=== PATIENT | female | born 1995 | race African-American/Black ===

== ENCOUNTER 2019-10-11 23:04 | Emergency (ER) | payer OTHER, BC, MEDICAID, SELFPAY ==
--- NOTE | ~2019-10-11 | XR_ITS ---
EXAMINATION: XR chest 2V DATE: 10/11/2019 23:52 INDICATION: Midline chest pain TECHNIQUE: PA and lateral views of the chest were obtained. COMPARISON: None FINDINGS: The lungs are clear with no focal airspace opacities, pulmonary edema, pleural effusion or pneumothor ax. The cardiomediastinal silhouette is normal. Mild thoracolumbar levoscoliosis. IMPRESSION: 1. No acute cardiopulmonary disease. Reviewed, dictated and finalized at location A. ERY CASHIER
[2019-10-11 23:08] VITALS: BP 140/71; PULSE 87; RESP 20; TEMP 37; O2SAT 100
--- NOTE | 2019-10-11 23:25 | ECG_ITS ---
Measurements Intervals [place] Rate: 73 P: 46 CA: 147 QRS: 22 QRSD: 80 T: 29 QT: 406 QTc: 448 Interpretive Statements SINUS RHYTHM BORDERLINE T WAVE ABNORMALITY- ANTERIOR LEADS BORDERLINE ECG Electronically Signed On 10-12-2019 7:04:59 UPHOLSTERY TECHNICIAN by Pee Boss D.O.
[2019-10-11 23:48] LABS: Basophils Percent Auto 0.3 % (0.2-1.2); Eosinophils Absolute Auto 0.2 K/mm3 (0-0.3); Eosinophils Percent Auto 1.3 % (0-4.4); Hematocrit 34.8 % (37.0-47.0); Hemoglobin 10.9 g/dL (12.0-15.0); Immature Granulocyte Absolute 0.04 K/mm3 (0.00-0.031); Immature Granulocyte Percent A 0.3 % (0-0.5); Lymphocytes Absolute Auto 4.47 K/mm3 (0.9-3.2); Lymphocytes Percent Auto 35.2 % (18.3-44.2); Mean Corpuscular HGB Conc 31.3 g/dl (32-36); Mean Corpuscular Hemoglobin 24.4 pg (26-34); Mean Platelet Volume 9.2 fl (7.4-10.4); Monocytes Absolute Auto 0.7 K/mm3 (0.1-0.6); Monocytes Percent Auto 5.8 % (2.6-8.5); Neutrophils Absolute Auto 7.2 K/mm3 (1.3-6.7); Neutrophils Percent Auto 57.1 % (45.5-73.1); Platelet Count Result 416 k/mm3 (150-375); Red Blood Count 4.46 M/mm3 (4.2-5.4); Red Cell Distribution Width 14.6 % (11.5-14.5); White Blood Count 12.7 K/mm3 (4.5-10.0)
[2019-10-11 23:54] LABS: Prothrombin Time 12.6 Seconds (11.1-14.7)
[2019-10-11 23:55] LABS: Partial Thromboplastin Time 29.7 SECONDS (22.3-36.8)
[2019-10-11 23:58] LABS: Blood Urea Nitrogen 9 mg/dL (7-17); Calcium 9.1 mg/dL (8.4-10.2); Carbon Dioxide 26 mmol/L (22-30); Chloride 100 mmol/L (98-107); Estimated CRCL calculation 88 ml/min; Estimated Glomerular Filt Rate > 60; Glucose 91 mg/dL (65-105); Potassium 3.8 mmol/L (3.4-5.0); Sodium 138 mmol/L (137-145)
[2019-10-12 00:09] LABS: Troponin I < 0.012 ng/mL (0.000-0.034)
--- NOTE | 2019-10-12 00:27 | ED.CHESTPAIN ---
HPI - Chest Pain General Chief Complaint: Chest Pain Stated Complaint: cough/cp Time Seen by Provider: 10/12/19 00:24 Source: patient and RN notes reviewed Mode of arrival: ambulatory Limitations: no limitations History of Present Illness HPI narrative: Pt is a 24 y/o female who presents to the ED with c/o midsternal chest pain starting around 19:00 yesterday. She notes that she has had a dry cough since yesterday. Pt states that she developed pain in her midsternal chest after eating wolof fries while at work at [employer] this evening. She notes that her pain radiates into her bilateral flank. Pt currently denies any SOB, LE edema, vomiting, diarrhea, ABD pain, or dysuria. She states that she is not currently on control. Pt notes that she has a FHx of DVT's. MD complaint: chest pain Onset (ago): hour(s) (5) Onset: after eating Pain location: other (midsternal) Pain radiation: back (bilateral flank) Associated symptoms: cough Treatment prior to arrival: none Related Data Allergies Allergy/AdvReac Type Severity Reaction Status Date / Time No Known Allergies Allergy Unverified 03/04/19 12:05 Review of Systems Review of Systems: Narrative: CONSTITUTIONAL: Denies fever, chills, or sweats. CARDIOVASCULAR: Denies palpitations or LE edema. Reports midsternal chest pain radiating into bilateral flank. RESPIRATORY: Denies dyspnea. Reports cough. GASTROINTESTINAL: Denies abdominal pain, nausea, vomiting, or diarrhea. GENITOURINARY: Denies dysuria or hematuria. All systems reviewed & are unremarkable except as noted in HPI and below PMFSH Past Medical History Medical History Arm fracture, left Colitis Herpes Miscarriage UTI (urinary tract infection) Surgical History Surgical History Hx of colonoscopy Hx of tonsillectomy Social History Social History Smoking status: Never smoker Exam Narrative: Exam Narrative: GENERAL: Well-appearing, well-nourished, and in no acute distress. HEAD: Normocephalic, atraumatic. EYES: PERRLA and EOMI. ENT: Nares clear, no rhinorrhea or epistaxis. Mucous membranes moist. NECK: Supple. CHEST: Clear to auscultation. No respiratory distress. No chest wall tenderness. HEART: Regular rate and rhythm. No murmur heard. Normal peripheral pulses. ABDOMEN: Soft, nontender, nondistended, normal active bowel sounds. EXTREMITIES: Normal range of motion. No edema. SKIN: Warm, dry, no rash. NEURO: No focal deficits. Alert and oriented. Course Vital Signs Vital signs: Vital Signs Temperature 37.0 C 10/11/19 23:08 Pulse Rate 87 10/11/19 23:08 Respiratory Rate 20 10/11/19 23:08 Blood Pressure 140/71 10/11/19 23:08 Pulse Oximetry 100 10/11/19 23:08 Temperature 37.0 C 10/11/19 23:08 Pulse Rate 75 10/12/19 02:15 Respiratory Rate 19 10/12/19 02:15 Blood Pressure 102/62 10/12/19 02:15 Pulse Oximetry 99 10/12/19 02:15 MDM - Chest Pain MDM Narrative Medical decision making narrative: Patient's EKG and labs are without significant high risk changes. Cardiac risk factors reviewed. Patient is felt low risk for ACS and reasonable for further risk stratification testing as an outpatient. Pain was not sudden or maximal or onset without tearing or ripping quality. No other signs or symptoms to suggest aortic dissection. A low risk well's criteria is noted, PE is felt to be unlikely. Furthermore, patient with negative d-dimer, making PE very unlikely. No pneumonia seen on evaluation today. Patient is felt to be a reasonable candidate for continued evaluation as an outpatient. Lab Data Result diagrams: 10/11/19 23:34 10/11/19 23:33 Labs: Lab Results 10/11/19 10/11/19 10/11/19 Range/Units 23:33 23:33 23:33 WBC (4.5-10.0) K/mm3 RBC (4.2-5.4) M/mm3 Hgb (12.0-15.0) g/dL Hct
[2019-10-12 00:44] VITALS: BP 113/70; PULSE 95; RESP 99; O2SAT 100
[2019-10-12] MEDS: ASPIRIN 81 MG CHEWABLE TABLET 324 MG PO (00:54)
[2019-10-12] MEDS: KETOROLAC (*BKC) 60 MG/2 ML VIAL 30 MG IM (00:55)
[2019-10-12 01:04] LABS: D Dimer 0.32 ug/mL (<0.48)
[2019-10-12 01:33] VITALS: BP 106/54; PULSE 69; RESP 16; O2SAT 100
[2019-10-12 02:15] VITALS: BP 102/62; PULSE 75; RESP 19; O2SAT 99
[2019-10-12 03:00] LABS: Troponin I < 0.012 ng/mL (0.000-0.034)
[2019-10-12 03:23] VITALS: BP 107/95; PULSE 77; RESP 19; O2SAT 100
== END 2019-10-12 03:26 | disposition home or self-care (01) ==
PROVIDERS: Emergency Provider Emergency Medicine; PCP Internal Medicine
DX: R07.89 Other chest pain (principal); D64.9 Anemia, unspecified
CPT/HCPCS: 36415; 71046; 80048; 84484; 85025; 85380; 85610; 85730; 93005; 96372; 99284; A9270; J1885

== ENCOUNTER 2020-02-25 11:51 | Outpatient (RCR) | payer OTHER, BC, MEDICAID, SELFPAY ==
[2020-02-23 15:13] LABS: Beta HCG Quantitative 310.14 mIU/ML
== END 2020-05-23 23:59 | disposition home or self-care (01) ==
LOC: ANHLAB 11:51
PROVIDERS: PCP Internal Medicine; Visit Provider Obstetrics & Gynecology
DX: Z36.89 Encounter for other specified antenatal screening (principal); Z29.13 Encounter for prophylactic Rho(D) immune globulin; O20.0 Threatened abortion; O36.0130 Maternal care for anti-D [Rh] antibodies, third trimester, not applicable or unspecified; Z3A.00 Weeks of gestation of pregnancy not specified
CPT/HCPCS: 36415; 84702; 85461

== ENCOUNTER 2020-03-09 20:21 | Emergency (ER) | payer OTHER, BC, MEDICAID, SELFPAY ==
--- NOTE | ~2020-03-09 | US_ITS ---
EXAMINATION: US OB <=14 wk fetus w TV EXAM DATE: 03/09/2020 INDICATION: , abdominal pain and syncope. 1st trimester. TECHNIQUE: Pelvic obstetrical transabdominal and transvaginal sonogram was performed by a techndamián landrum. There are multiple grayscale and Doppler images available for interpretation. There are no bhavesh ier studies of this gestation for comparison. FINDINGS: Uterus measures 6.5 x 5.3 x 7.0 cm. There is intrauterine gestation sac. pole with heart rate confirmed at 124 beats per minute. The 6 mm crown-rump length corresponds to estimated ge stational age by ultrasound of 6 weeks 3 days. Yolk sac is identified. There is small subchorionic hemorrhage, region measuring 13 x 8 x 3 mm. The ovaries are morphologically normal. Ovaries morphol ogically normal, color flow and Doppler flow confirmed bilaterally. IMPRESSION: Early live intrauterine gestation with small subchorionic hemorrhage. Reviewed, dictated and finalized at location A. IMPRESSION: Early live intrauterine gestation with small subchorionic hemorrhag e.
[2020-03-09 20:25] VITALS: BP 106/66; PULSE 102; RESP 20; TEMP 37.1; O2SAT 99
--- NOTE | 2020-03-09 20:30 | ED.SYNCOPE ---
HPI - Syncope General Chief Complaint: Urogenital-Female Stated Complaint: syncope Time Seen by Provider: 03/09/20 20:29 Source: patient Mode of arrival: ambulatory Limitations: no limitations History of Present Illness HPI narrative: Patient is a 24-year-old G3, P1 currently 8 weeks dated by last menstrual period following at [facility] who presents to the emergency department for evaluation of abdominal pain and cramping. Patient reports that she started to have some mild abdominal pain in the lower pelvis, cramping, spotting earlier today. No current spotting. No recent vaginal intercourse. Patient also reports syncopal event at work today. She is denying any back pain. No current shortness of breath. She has had significant nausea throughout this , states she has difficulty keeping any fluids down. She has not had an ultrasound at this point. She reports her blood type is O+. She reports any other vaginal discharge. No history of sexually transmitted infection. Pt recently diagnosed with a yeast infection at OBGYN office, completed 3 day course of Terazol 3 per patient. No vaginal irritation or itching per patient. Related Data Home Medications Medication Instructions Recorded Confirmed PNV cmb#95-ferrous fumarate-FA tablet PO 03/09/20 [] Allergies Allergy/AdvReac Type Severity Reaction Status Date / Time acetaminophen [From Percocet] Allergy Rash Verified 03/09/20 20:29 oxycodone [From Percocet] Allergy Rash Verified 03/09/20 20:29 Review of Systems Review of Systems: Narrative: CONSTITUTIONAL: Denies fever, chills, or sweats. EYES: Denies visual changes ENT: Denies rhinorrhea, congestion, sore throat, or otalgia. CARDIOVASCULAR: Denies chest pain, palpitations RESPIRATORY: Denies cough or dyspnea. GASTROINTESTINAL: Reports lower abdominal pain, nausea, vomiting : Reports vaginal bleeding, currently resolved GENITOURINARY: Denies dysuria or hematuria. SKIN: Denies rash or itching. MUSCULOSKELETAL: Denies back pain, joint pain, or myalgia. NEUROLOGIC: Denies current headache, numbness, or weakness. [facility] Past Medical History Medical History Arm fracture, left Colitis Herpes Miscarriage UTI (urinary tract infection) Surgical History Surgical History Hx of colonoscopy Hx of tonsillectomy Social History Social History Smoking status: Never smoker Exam Narrative: Exam Narrative: GENERAL: Awake, alert, conversant HEAD: Normocephalic, atraumatic. EYES: PERRLA and EOMI. ENT: Nares clear, no rhinorrhea or epistaxis. Mucous membranes moist. NECK: Supple. CHEST: No respiratory distress, breathing even and non labored HEART: Regular rate, sinus rhythm ABDOMEN:Non distended, mild tender in the pelvic area : Labia majora and minora normal without lesions. Vagina without blood. No cervical motion tenderness. No adnexal tenderness or fullness bilaterally. Mucoid discharge present. EXTREMITIES: Normal range of motion. No edema. SKIN: Warm, dry, no rash. NEURO:No focal deficits. Alert and oriented x3 Course Vital Signs Vital signs: Vital Signs Temperature 37.1 C 03/09/20 20:25 Pulse Rate 102 H 03/09/20 20:25 Respiratory Rate 20 03/09/20 20:25 Blood Pressure 106/66 03/09/20 20:25 Pulse Oximetry 99 03/09/20 20:25 Temperature 37.1 C 03/09/20 20:25 Pulse Rate 90 03/09/20 22:29 Respiratory Rate 19 03/09/20 22:29 Blood Pressure 113/88 03/09/20 22:29 Pulse Oximetry 99 03/09/20 22:29 MDM - Syncope MDM Narrative Medical decision making narrative: Patient presented for evaluation of vaginal bleeding, near syncope in the setting of a new , no ultrasound at this point. Patient's blood type is O+, verified in the computer. Pelvic exam shows no active b
--- NOTE | 2020-03-09 20:38 | ECG_ITS ---
Measurements Intervals [place] Rate: 79 P: 40 MO: 149 QRS: 16 QRSD: 86 T: 6 QT: 362 QTc: 417 Interpretive Statements SINUS RHYTHM BORDERLINE T WAVE ABNORMALITY- ANTEROLAT/INF LEADS BASELINE ARTIFACT- AVR, V1 BORDERLINE ECG Electronically Signed On 03-10-2020 7:30:04 CDT by Pee Boss D.O.
[2020-03-09] MEDS: SODIUM CHLORIDE 0.9% IV 1,000 ML 999 ML IV CONT (20:59)
[2020-03-09] MEDS: ONDANSETRON INJ 4 MG/2 ML VIAL IV PUSH (20:59)
--- NOTE | 2020-03-09 21:09 | PC.NURSE ---
pt unable to urinate at this time.
[2020-03-09 21:12] LABS: Basophils Percent Auto 0.2 % (0.2-1.2); Eosinophils Absolute Auto 0.2 K/mm3 (0-0.3); Eosinophils Percent Auto 1.5 % (0-4.4); Hemoglobin 10.7 g/dL (12.0-15.0); Immature Granulocyte Absolute 0.05 K/mm3 (0.00-0.031); Immature Granulocyte Percent A 0.4 % (0-0.5); Lymphocytes Absolute Auto 3.45 K/mm3 (0.9-3.2); Lymphocytes Percent Auto 27.6 % (18.3-44.2); Mean Corpuscular HGB Conc 32.4 g/dl (32-36); Mean Corpuscular Hemoglobin 24.9 pg (26-34); Mean Corpuscular Volume 76.7 fl (80-100); Mean Platelet Volume 9.3 fl (7.4-10.4); Monocytes Absolute Auto 0.7 K/mm3 (0.1-0.6); Monocytes Percent Auto 5.9 % (2.6-8.5); Neutrophils Absolute Auto 8.1 K/mm3 (1.3-6.7); Neutrophils Percent Auto 64.4 % (45.5-73.1); Platelet Count Result 392 k/mm3 (150-375); Red Cell Distribution Width 14.9 % (11.5-14.5); White Blood Count 12.5 K/mm3 (4.5-10.0)
[2020-03-09 21:25] LABS: Alanine Aminotransferase 12 U/L (4-35); Alkaline Phosphatase 58 U/L (38-126); Anion Gap 12.6 mmol/L (7-16); Aspartate Amino Transferase 23 U/L (14-36); Bilirubin,Total < 0.1 mg/dL (0.2-1.3); Blood Urea Nitrogen 8 mg/dL (7-17); Carbon Dioxide 22 mmol/L (22-30); Chloride 104 mmol/L (98-107); Estimated Glomerular Filt Rate > 60; Glucose 112 mg/dL (65-105); Potassium 3.6 mmol/L (3.4-5.0); Sodium 135 mmol/L (137-145)
[2020-03-09 21:27] LABS: Prothrombin Time 12.8 Seconds (11.1-14.7)
[2020-03-09 21:29] LABS: Partial Thromboplastin Time 30.7 SECONDS (22.3-36.8)
--- NOTE | 2020-03-09 21:30 | PC.NURSE ---
Pt to ultrasound
[2020-03-09 22:29] VITALS: BP 110/57; BP 110/75; BP 111/72; BP 113/88; PULSE 76; PULSE 80; PULSE 87; PULSE 90; RESP 19; O2SAT 99
[2020-03-09 22:45] LABS: Add Urine Microscopic? YES; Appearance Urine Clear (Clear); Bacteria Urine Trace /hpf; Bilirubin Urine Negative (Negative); Color Urine Yellow (Yellow); Glucose Urine UA Negative (Negative); Ketones Urine Negative (Negative); Leukocyte Esterase Ur Trace LEU/UL (Negative); Mucus Urine Rare /lpf; Nitrate Urine Positive (Negative); Protein Urine Negative (Negative); RBC Urine 0-2 /hpf (0-2); Specific Grav Ur 1.017 (1.001-1.035); Squamous Epithelial Cell Urine Occasional /hpf (Few); Urobilinogen Urine Negative mg/dL (<2.0); WBC Urine 16-20 /hpf
[2020-03-09 22:48] LABS: Blood Urine Negative (Negative)
[2020-03-10 00:08] VITALS: BP 100/57; PULSE 80; RESP 17; O2SAT 99
== END 2020-03-10 00:08 | disposition home or self-care (01) ==
PROVIDERS: Emergency Provider Emergency Medicine; PCP Internal Medicine
DX: O23.11 Infections of bladder in pregnancy, first trimester (principal); O46.8X1 Other antepartum hemorrhage, first trimester; Z3A.01 Less than 8 weeks gestation of pregnancy
CPT/HCPCS: 36415; 76801; 76817; 80053; 81001; 81025; 84702; 85025; 85461; 85610; 85730; 87070; 87077; 87086; 87088; 87186; 87491; 87591; 87808; 93005; 96361; 96374; 99284; J2405; J7030

== ENCOUNTER 2020-03-13 17:02 | Emergency (ER) | payer OTHER, BC, MEDICAID, SELFPAY ==
[2020-03-13 17:03] VITALS: BP 114/68; PULSE 84; RESP 20; TEMP 37.4; O2SAT 100
--- NOTE | 2020-03-13 17:34 | ED.GENADULT ---
HPI - General Adult General Chief complaint: Unspecified Stated complaint: N/V Time Seen by Provider: 03/13/20 17:18 Source: patient Mode of arrival: ambulatory Limitations: no limitations History of Present Illness HPI narrative: This is a 24 year old G3, P1, about 7 weeks that presents to the ER for nausea and vomiting since yesterday. Reports she has not been able to keep anything down. Was seen by her OB and sent here for hydration. Denies fever, abdominal pain, pelvic cramping, or vaginal bleeding. Related Data Home Medications Medication Instructions Recorded Confirmed PNV cmb#95-ferrous fumarate-FA tablet PO 03/09/20 [] Allergies Allergy/AdvReac Type Severity Reaction Status Date / Time acetaminophen [From Percocet] Allergy Rash Verified 03/13/20 17:05 oxycodone [From Percocet] Allergy Rash Verified 03/13/20 17:05 Review of Systems Review of Systems: Narrative: CONSTITUTIONAL: Denies fever GASTROINTESTINAL: Reports nausea and vomiting. Denies abdominal pain GENITOURINARY: Denies dysuria All systems reviewed & are unremarkable except as noted in HPI and below PMFSH Social History Social History Smoking status: Never smoker Exam Narrative: Exam Narrative: GENERAL: Well-appearing, well-nourished, and in no acute distress. HEAD: Normocephalic, atraumatic. EYES: EOMI. CHEST: Clear to auscultation. No respiratory distress. No wheezes rales or rhonchi HEART: Regular rate and rhythm. No murmur heard. Normal peripheral pulses. ABDOMEN: Soft, nontender, nondistended, normal active bowel sounds. EXTREMITIES: Normal range of motion. No edema. SKIN: Warm, dry, no rash. NEURO: No focal deficits. Alert and oriented x3. PSYCH: Normal mood and affect Course Consultations Consultation #1: Spoke with on-call, Dr. Barth about patient and workup. She is to follow-up in clinic. Date: 03/13/20 Time: 20:30 Vital Signs Vital signs: Vital Signs Temperature 99.3 F 03/13/20 17:03 Pulse Rate 84 03/13/20 17:03 Respiratory Rate 20 03/13/20 17:03 Blood Pressure 114/68 03/13/20 17:03 Pulse Oximetry 100 07/28/20 17:03 Temperature 99.3 F 03/13/20 17:03 Pulse Rate 84 03/13/20 17:03 Respiratory Rate 03/13/20 17:03 Blood Pressure 114/68 03/13/20 17:03 Pulse Oximetry 100 03/13/20 17:03 Medical Decision Making MDM Narrative Medical decision making narrative: Patient presents the emergency department for nausea and vomiting x1 day. Patient 7 weeks . Provider is Rosamaria at [facility]. Patient had an ultrasound here 4 days ago which showed a live intrauterine gestation with a small subchorionic hemorrhage. Patient has no other complaints today. Denies any pelvic cramping or vaginal bleeding. No abdominal pain. Patient's vitals are normal. CBC with mild leukocytosis to 12.1. Also with mild microcytic anemia with hemoglobin of 11.3. Metabolic panel and lipase without acute findings. UA with 16-20 white blood cells and 3+ bacteria, also with many squamous epithelial cells. Patient will be placed on Macrobid for bacteriuria in . Patient hydrated and given Reglan in the ED with relief. Was able to tolerate p.o. challenge. Spoke with on-call, Dr. Barth about patient. She is to follow-up in clinic. Patient is stable and felt appropriate for further outpatient evaluation. She was given warnings to return to the ER Vital Signs Vital Signs: Vital Signs Temperature 99.3 F 03/13/20 17:03 Pulse Rate 84 03/13/20 17:03 Respiratory Rate 03/13/20 17:03 Blood Pressure 114/68 03/13/20 17:03 Pulse Oximetry 100 03/13/20 17:03 Temperature 99.3 F 03/13/20 17:03 Pulse Rate 84 03/13/20 17:03 Respiratory Rate 03/13/20 17:03 Blood Pressure 114/68 03/13/20 17:03 Pulse Oximetry 100 03/13/20 17:03 Lab Data Lab results reviewed: Yes I reviewed the patient'
[2020-03-13 17:41] LABS: Basophils Percent Auto 0.2 % (0.2-1.2); Eosinophils Absolute Auto 0.1 K/mm3 (0-0.3); Eosinophils Percent Auto 1.1 % (0-4.4); Hematocrit 35.6 % (37.0-47.0); Hemoglobin 11.3 g/dL (12.0-15.0); Immature Granulocyte Absolute 0.07 K/mm3 (0.00-0.031); Immature Granulocyte Percent A 0.6 % (0-0.5); Lymphocytes Absolute Auto 2.43 K/mm3 (0.9-3.2); Mean Corpuscular HGB Conc 31.7 g/dl (32-36); Mean Corpuscular Hemoglobin 24.2 pg (26-34); Mean Corpuscular Volume 76.2 fl (80-100); Monocytes Absolute Auto 0.9 K/mm3 (0.1-0.6); Monocytes Percent Auto 7.3 % (2.6-8.5); Neutrophils Absolute Auto 8.6 K/mm3 (1.3-6.7); Neutrophils Percent Auto 70.8 % (45.5-73.1); Platelet Count Result 429 k/mm3 (150-375); Red Blood Count 4.67 M/mm3 (4.2-5.4); Red Cell Distribution Width 14.9 % (11.5-14.5); White Blood Count 12.1 K/mm3 (4.5-10.0)
[2020-03-13] MEDS: diphenhydrAMINE HCl INJ 50 MG/ML VIAL 25 MG IV PUSH (17:49)
[2020-03-13] MEDS: METOCLOPRAMIDE HCL INJ 10 MG/2 ML VIAL IV PUSH (17:49)
[2020-03-13] MEDS: SODIUM CHLORIDE 0.9% IV 1,000 ML 999 ML IV CONT (17:49)
[2020-03-13 17:54] LABS: Alanine Aminotransferase 13 U/L (4-35); Albumin Level 4.4 g/dL (3.5-5.1); Alkaline Phosphatase 56 U/L (38-126); Anion Gap 13.7 mmol/L (7-16); Aspartate Amino Transferase 29 U/L (14-36); Bilirubin,Total 0.2 mg/dL (0.2-1.3); Blood Urea Nitrogen 7 mg/dL (7-17); Calcium 9.2 mg/dL (8.4-10.2); Carbon Dioxide 23 mmol/L (22-30); Chloride 102 mmol/L (98-107); Estimated CRCL calculation 110 ml/min; Estimated Glomerular Filt Rate > 60; Glucose 95 mg/dL (65-105); Lipase 71 U/L (23-300); Potassium 3.7 mmol/L (3.4-5.0); Sodium 135 mmol/L (137-145)
[2020-03-13 19:31] LABS: Add Urine Microscopic? YES; Appearance Urine Cloudy (Clear); Bacteria Urine 3+ /hpf; Bilirubin Urine Negative (Negative); Color Urine Yellow (Yellow); Glucose Urine UA Negative (Negative); Ketones Urine Trace mg/dL (Negative); Leukocyte Esterase Ur 2+ LEU/UL (Negative); Mucus Urine Moderate /lpf; Nitrate Urine Negative (Negative); Protein Urine 1+ mg/dL (Negative); Renal Epithelial Cells Urine Rare /hpf (None Seen); Specific Grav Ur 1.024 (1.001-1.035); Squamous Epithelial Cell Urine Many /hpf (Few); Urobilinogen Urine Negative mg/dL (<2.0); WBC Urine 16-20 /hpf
[2020-03-13 19:36] LABS: Blood Urine Negative (Negative)
[2020-03-13 20:41] VITALS: BP 132/70; PULSE 80; RESP 20; O2SAT 99
== END 2020-03-13 20:43 | disposition home or self-care (01) ==
PROVIDERS: Emergency Provider Emergency Medicine; PCP Internal Medicine
DX: O21.9 Vomiting of pregnancy, unspecified (principal); O26.891 Other specified pregnancy related conditions, first trimester; R82.71 Bacteriuria; Z3A.01 Less than 8 weeks gestation of pregnancy
CPT/HCPCS: 36415; 80053; 81001; 83690; 85025; 87077; 87086; 87088; 87186; 96361; 96374; 96375; 99284; J1200; J2765; J7030

== ENCOUNTER 2020-03-28 17:24 | Observation (INO) | payer OTHER, BC, MEDICAID, SELFPAY ==
[2020-03-28 17:45] VITALS: BMI 29.3
[2020-03-28] MEDS: DEXTROSE 5%/LACTATED RINGERS 1,000 ML 999 ML IV CONT (17:53)
--- NOTE | 2020-03-28 17:55 | OBADM ---
This patient, Vicki Villafuerte, admitted to the OB room OB Post 116 for observation. Patient/family oriented to hospital policies and general routines including ID bracelet, bed and alarms, visiting hours, pain management, procedures, bathroom and other care routines, personal items, smoking policy, room service/diet, and visiting hours. Patient/Family are encouraged to report perceived risks to care and to ask questions if they do not understand what they are told or what they should do.
[2020-03-28 18:00] VITALS: BP 110/64; PULSE 89
[2020-03-28 18:05] LABS: Add Urine Microscopic? YES; Appearance Urine Cloudy (Clear); Bacteria Urine 3+ /hpf; Bilirubin Urine Negative (Negative); Blood Urine 1+ (Negative); Color Urine Yellow (Yellow); Glucose Urine UA Negative (Negative); Ketones Urine 2+ mg/dL (Negative); Leukocyte Esterase Ur 3+ LEU/UL (NEGATIVE); Mucus Urine Heavy /lpf; Nitrate Urine Positive (Negative); Protein Urine 2+ mg/dL (Negative); RBC Urine 21-50 /hpf (0-2); Squamous Epithelial Cell Urine Few /hpf (Few); Urobilinogen Urine Negative mg/dL (<2.0); WBC Urine >75 /hpf (0-3)
[2020-03-28] MEDS: PROCHLORPERAZINE EDISYLATE 10 MG/2 ML VIAL IV PUSH (18:11)
--- NOTE | 2020-03-28 18:57 | PC.NURSE ---
Patient reports feeling better after medication and fluid bolus. Patient denies nausea at present time. Patient given ice chips, water and crackers to attempt PO.
--- NOTE | 2020-03-28 19:37 | PC.NURSE ---
Updated Dr. Barth of patient UA results, Urine will be sent to culture. Patient currently resting comfortably without complaint of nausea. Patient states she is feeling better and is attempting crackers, ice and water PO.
--- NOTE | 2020-03-28 20:26 | PC.NURSE ---
Updated Dr. Barth. Patient tolerating PO water and crackers without complaint. Patient able to sleep comfortably. Discharge orders given.
[2020-03-28] MEDS: LIDOCAINE HCL 1% LOCAL INJ 10 ML VIAL 2.1 ML XX (20:54)
[2020-03-28] MEDS: cefTRIAXone 1 GM VIAL IM (20:54)
--- NOTE | 2020-03-28 21:05 | PC.NURSE ---
Discharge orders reviewed with patient. Patient educated on new medications and instructed to picker tender helper medications at her preferred pharmacy. Patient states understanding. Patient left ambulating at 2105.
--- NOTE | 2020-04-15 20:56 | P.PNOB_ITS ---
OB - Triage/Final Diagnosis Evaluation Laboratory results: Laboratory Tests 03/28/20 17:50 Urine Color Yellow Urine Appearance Cloudy H Urine pH 6.0 Ur Specific [place] 1.030 Urine Protein 2+ H Urine Glucose (UA) Negative Urine Ketones 2+ H Ur Blood (Man) 1+ H Urine Nitrate Positive Urine Bilirubin Negative Urine Urobilinogen Negative Ur Leukocyte Esterase 3+ H Urine RBC 21-50 H Urine WBC >75 H Ur Squamous Epith Cells Few Urine Bacteria 3+ H Urine Mucus Heavy H Final Diagnosis (1) Nausea and vomiting: Code(s): R11.2 - Nausea with vomiting, unspecified Status: Acute
== END 2020-03-28 21:05 | disposition home or self-care (01) ==
PROVIDERS: Admitting Provider Obstetrics & Gynecology; PCP Internal Medicine; Visit Provider Obstetrics & Gynecology
DX: O21.0 Mild hyperemesis gravidarum (principal); Z3A.09 9 weeks gestation of pregnancy
CPT/HCPCS: 81001; 87077; 87086; 87088; 87186; 96361; 96372; 96374; G0378; G0379; J0696; J0780; J7121

== ENCOUNTER 2020-04-06 18:18 | Observation (INO) | payer OTHER, BC, MEDICAID, SELFPAY ==
[2020-04-06 19:15] LABS: Basophils Percent Auto 0.1 % (0.2-1.2); Eosinophils Absolute Auto 0.1 K/mm3 (0-0.3); Eosinophils Percent Auto 1.1 % (0-4.4); Hematocrit 33.7 % (37.0-47.0); Immature Granulocyte Absolute 0.02 K/mm3 (0.00-0.031); Immature Granulocyte Percent A 0.2 % (0-0.5); Lymphocytes Absolute Auto 1.99 K/mm3 (0.9-3.2); Lymphocytes Percent Auto 22.6 % (18.3-44.2); Mean Corpuscular HGB Conc 32.6 g/dl (32-36); Mean Corpuscular Hemoglobin 24.8 pg (26-34); Mean Corpuscular Volume 76.1 fl (80-100); Mean Platelet Volume 9.2 fl (7.4-10.4); Monocytes Absolute Auto 0.8 K/mm3 (0.1-0.6); Neutrophils Absolute Auto 5.9 K/mm3 (1.3-6.7); Platelet Count Result 345 k/mm3 (150-375); Red Blood Count 4.43 M/mm3 (4.2-5.4); Red Cell Distribution Width 14.2 % (11.5-14.5); White Blood Count 8.8 K/mm3 (4.5-10.0)
[2020-04-06 19:27] LABS: Alanine Aminotransferase 56 U/L (4-35); Albumin Level 4.3 g/dL (3.5-5.1); Alkaline Phosphatase 56 U/L (38-126); Anion Gap 11 mmol/L (8-16); Aspartate Amino Transferase 32 U/L (14-36); Bilirubin,Total < 0.1 mg/dL (0.2-1.3); Blood Urea Nitrogen 6 mg/dL (7-17); Carbon Dioxide 25 mmol/L (22-30); Chloride 100 mmol/L (98-107); Estimated Glomerular Filt Rate > 60; Glucose 82 mg/dL (65-105); Potassium 3.5 mmol/L (3.4-5.0); Sodium 136 mmol/L (137-145)
[2020-04-06] MEDS: ONDANSETRON INJ 4 MG/2 ML VIAL IV PUSH (19:36)
[2020-04-06] MEDS: DEXTROSE 5%/LACTATED RINGERS 1,000 ML 125 ML IV CONT (19:36)
[2020-04-06] MEDS: FAMOTIDINE 20 MG/2 ML VIAL IV PUSH (19:36)
--- NOTE | 2020-04-06 20:01 | PHAR ---
WILL STOP LR WILL RUNNING CEFTRIAXONE. WILL GIVE SALINE BOLUS.
[2020-04-06] MEDS: SODIUM CHLORIDE 0.9% IV 500 ML IV CONT (21:59)
[2020-04-07] VITALS (8 sets, daily range): BP systolic 86–107; BP diastolic 48–60; PULSE 76–97; TEMP 36.6–37.2
[2020-04-07] MEDS: PROMETHAZINE HCL 25 MG/ML AMPUL 12.5 MG IV PUSH ×2 (00:10→12:47)
[2020-04-07] MEDS: DEXTROSE 5%/LACTATED RINGERS 1,000 ML 125 ML IV CONT ×3 (00:32→15:16)
[2020-04-07 00:52] LABS: Add Urine Microscopic? YES; Appearance Urine Cloudy (Clear); Bacteria Urine 2+ /hpf; Bilirubin Urine Negative (Negative); Blood Urine Negative (Negative); Color Urine Yellow (Yellow); Glucose Urine UA 2+ mg/dL (Negative); Ketones Urine 1+ mg/dL (Negative); Leukocyte Esterase Ur 2+ LEU/UL (Negative); Mucus Urine Heavy /lpf; Nitrate Urine Negative (Negative); Protein Urine 1+ mg/dL (Negative); Specific Grav Ur 1.025 (1.001-1.035); Squamous Epithelial Cell Urine Many /hpf (Few); Urobilinogen Urine Negative mg/dL (<2.0); WBC Urine 16-20 /hpf
[2020-04-07] MEDS: ONDANSETRON INJ 4 MG/2 ML VIAL IV PUSH (11:56)
[2020-04-07] MEDS: FAMOTIDINE 20 MG/2 ML VIAL IV PUSH (11:56)
[2020-04-07] MEDS: DOCUSATE SODIUM 100 MG CAPSULE PO (15:36)
--- NOTE | 2020-04-07 22:00 | PC.NURSE ---
Pt decided to stay the night, IV saline locked, medication for nausea offered, pt declined. Pt wants to stay over night to make sure she is able to tolerate food before going home.
[2020-04-07] MEDS: NITROFURANTOIN MONOHYD MACROCR 100 MG CAP PO (22:07)
--- NOTE | 2020-04-07 22:40 | PC.NURSE ---
Pt ate a turkey sandwich, declined nausea medication.
--- NOTE | 2020-04-08 01:40 | PC.NURSE ---
Pt called RN stating she was trying to have a bowel movement. Previously discussed pt would be constipated due to not being able to eat or drink anything for awhile and the medications given can cause constipation. Discussed options of digital removal of stool, enema, or other medications. Pt does not want an enema or digital removal. Will call for orders.
[2020-04-08] MEDS: MAGNESIUM HYDROXIDE SUSP 30 ML UDC PO (02:00)
[2020-04-08 09:42] VITALS: BP 106/60; PULSE 86; TEMP 37.1
--- NOTE | 2020-04-08 12:01 | PM.IMHP ---
H&P: HPI History of Present Illness Date/Time: 04/08/20 12:01 Chief complaint: Hyperemesis Narrative: Vicki Villafuerte is a 24 year old female 2 para 1001 at 11 weeks gestation who presented with intractable nausea and vomiting. She has been suffering with hyperemesis gravidarum for several weeks. She denies any cramping or bleeding. She denies any fever chills. She denies any chest pain or shortness of breath. Review of Systems Constitutional: Constitutional: Reports no additional constitutional complaints, Denies fatigue, Denies headache(s), Denies lethargy and Denies weakness Eyes: Eyes: Reports no additional eye complaints, Denies blurry vision and Denies photophobia ENT: Reports as per HPI, Denies headache(s) and Denies neck pain Cardiovascular: Cardiovascular: Denies chest pain, Denies diaphoresis, Denies leg edema, Denies palpitations and Denies dyspnea Respiratory: Respiratory: Denies hemoptysis, Denies dyspnea and Denies wheezing Gastrointestinal: Gastrointestinal: Denies abdominal pain, Denies melena, Denies bloating, Denies hematochezia, Denies nausea and Denies vomiting Genitourinary: Genitourinary: Reports no additional female genitourinary complaints Musculoskeletal: Musculoskeletal: Denies joint swelling, Denies neck pain, Denies numbness and Denies stiffness Neurologic: Denies Abnormal speech present, Denies confusion, Denies headache(s), Denies numbness and Denies weakness Psychiatric: Psychiatric: Denies anxiety, Denies confusion, Denies depression, Denies homicidal ideation and Denies suicidal ideation Endocrine: Endocrine: Denies fatigue and Denies palpitations Allergic/Immunologic: Allergic/Immunologic: Denies wheezing PMFSH Social History Social History Smoking status: Never smoker Meds Home Medications and Allergies Home Medications Medication Instructions Recorded Confirmed Type PNV cmb#95-ferrous fumarate-FA 1 tablet PO DAILY 03/09/20 03/28/20 History [] nitrofurantoin monohyd/m-cryst 100 mg PO Q12H 7 Days #14 cap 03/28/20 Rx [Macrobid] prochlorperazine maleate 10 mg PO Q6H PRN #30 tablet 03/28/20 Rx [Compazine] Allergies Allergy/AdvReac Type Severity Reaction Status Date / Time acetaminophen [From Percocet] Allergy Rash Verified 03/13/20 17:05 oxycodone [From Percocet] Allergy Rash Verified 03/13/20 17:05 Vital Signs Vital Signs - 24 hr 04/07/20 13:19 04/07/20 16:49 04/07/20 16:50 Temperature 97.9 F 98.9 F Pulse Rate 76 97 Blood Pressure 97/57 L 107/52 L 04/07/20 22:00 04/07/20 22:08 04/08/20 09:42 Temperature 98 F 98.8 F Pulse Rate 81 86 Blood Pressure 93/55 L 106/60 Exam Const: General: healthy appearing, comfortable and no acute distress; No confusion Orientation/consciousness: No confusion Eyes: Direct Ophthalmoscopy: No photophobia Resp: Auscultation: clear to auscultation bilaterally, no rales, no rhonchi and no wheezes Cardio: Rate: regular rate Heart sounds: no click, no murmurs and no rubs GI: Inspection: non-distended GI Palp: No abdominal tenderness Auscultation: normal bowel sounds Neuro: General: No confusion Speech: No Abnormal speech present Extrem: General: normal to inspection, no pedal edema and no calf tenderness Assessment and Plan Assessment and plan (1) Hyperemesis: Code(s): R11.10 - Vomiting, unspecified Status: Acute Assessment and Plan: patient is a 24 year old multi hip 11 weeks gestation with hyperemesis. She has been supported with IV fluids and antiemetics. Labs are normal and she is being treated for UTI. We will discharge her if she is able to tolerate lunch today. She has improved significantly on her. Observation.
[2020-04-08] MEDS: NITROFURANTOIN MONOHYD MACROCR 100 MG CAP PO (12:44)
== END 2020-04-08 13:36 | disposition home or self-care (01) ==
PROVIDERS: Advanced Practice Midwife; Admitting Provider Obstetrics & Gynecology; PCP Internal Medicine; Visit Provider Obstetrics & Gynecology
DX: O21.0 Mild hyperemesis gravidarum (principal); O23.41 Unspecified infection of urinary tract in pregnancy, first trimester; Z3A.11 11 weeks gestation of pregnancy
CPT/HCPCS: 36415; 80053; 81001; 85025; 87086; 96361; 96365; 96374; 96375; 96376; A9270; G0378; G0379; J0696; J2405; J2550; J7040; J7121

== ENCOUNTER 2020-04-30 18:06 | Inpatient (IN) | payer BC, MEDICAID, SELFPAY ==
--- NOTE | ~2020-04-30 | US_ITS ---
US right upper quadrant INDICATION: Elevated lipase PROCEDURE: Realtime right upper abdominal ultrasound. COMPARISON: No prior studies for comparison. FINDINGS: The pancreas is normal without focal mass or pancreatic ductal dilation. Liver echotexture is normal without focal mass or intrahepatic biliary dilatation. There is normal directional flow i n the portal vein. Gallbladder contains sludge. No definite stones, gallbladder wall thickening or pericholecystic fluid . Common bile duct measures 4 mm. Positive sonographic Lopez's sign. IMPRESSION: 1: Sludge filled gallbladder with positive sonographic Lopez's sign. Consider acalculous cholecystit is in the appropriate clinical setting. Reviewed, dictated and finalized at location B. IMPRESSION: 1: Sludge filled gallbladder with positive sonographic Lopez's sign. Consider acalculous cholecystitis in the appropriate clinical setting.
--- NOTE | ~2020-04-30 | US_ITS ---
EXAMINATION: US OB >= 14 weeks Fetus EXAM DATE: 05/02/2020 13:31 INDICATION: Nausea vomiting. Check viability. 2nd trimester. TECHNIQUE: Pelvic obstetrical transabdominal sonogram was performed by a technologist. There are mu ltiple grayscale and Doppler images available for interpretation. Comparison is made to prior examina tion from 03/09/2020. FINDINGS: There is a single fetus identified in breech presentation with a heart rate of 159 beats pe r minute. The placenta is located in the posterior position. There is no sonographic evidence of ret roplacental hemorrhage identified. BIOMETRIC DATA: Biparietal diameter (BPD): 2.6cm ----------------> 14 weeks 3 days. Head circumference (HC): 9.8 cm ----------------> 14 weeks 4 days. Abdominal circumference (AC): 8.2 cm ----------> 14 weeks 4 days. Femur length (FL): 1.5 cm --------------------------> 14 weeks 2 days. These measurements are concordant. HC/AC ratio is 1.19 (The 5th -- 95th percentile range is 1.08-1.37. Estimated weight is 98 g +/- 15 g. This is the 55 percentile when the currently reported clini [place] gestation age 14 weeks 1 day, clinical estimated date of delivery (MALVIN-OPE) 10/30/2020 is used. Fe pablito estimated gestational age based on measurements from this exam is 14 weeks 3 days, with an estima jose manuel date of delivery (MALVIN-AUA) 10/28/2020. IMPRESSION: 1. Single fetus in breech presentation with heart rate 159 beats per minute. 2. Estimated weight of 98 grams, 55th percentile using the currently reported clinical gestati on age of 14 weeks 1 day, MALVIN(OPE) 10/30/2020. Reviewed, dictated and finalized at location A. IMPRESSION: 1. Single fetus in breech presentation with heart rate 159 beats per minute. 2. Estimated weight of 98 grams, 55th percentile using the currently rep orted clinical gestation age of 14 weeks 1 day, MALVIN(OPE) 10/30/2020.
[2020-04-30 16:08] VITALS: BP 136/75; PULSE 124; RESP 20; TEMP 36.6; O2SAT 100
[2020-04-30 16:26] LABS: Basophils Percent Auto 0.3 % (0.2-1.2); Eosinophils Absolute Auto 0.1 K/mm3 (0-0.3); Eosinophils Percent Auto 1.2 % (0-4.4); Hematocrit 36.5 % (37.0-47.0); Hemoglobin 12.2 g/dL (12.0-15.0); Immature Granulocyte Absolute 0.03 K/mm3 (0.00-0.031); Immature Granulocyte Percent A 0.3 % (0-0.5); Lymphocytes Absolute Auto 1.81 K/mm3 (0.9-3.2); Lymphocytes Percent Auto 20.5 % (18.3-44.2); Mean Corpuscular HGB Conc 33.4 g/dl (32-36); Mean Corpuscular Hemoglobin 24.8 pg (26-34); Mean Corpuscular Volume 74.3 fl (80-100); Mean Platelet Volume 9.7 fl (7.4-10.4); Monocytes Absolute Auto 0.9 K/mm3 (0.1-0.6); Monocytes Percent Auto 9.7 % (2.6-8.5); Platelet Count Result 404 k/mm3 (150-375); Red Blood Count 4.91 M/mm3 (4.2-5.4); Red Cell Distribution Width 13.7 % (11.5-14.5); White Blood Count 8.9 K/mm3 (4.5-10.0)
[2020-04-30 16:50] LABS: Alanine Aminotransferase 178 U/L (4-35); Albumin Level 4.7 g/dL (3.5-5.1); Alkaline Phosphatase 90 U/L (38-126); Anion Gap 13 mmol/L (8-16); Aspartate Amino Transferase 104 U/L (14-36); Bilirubin,Total 0.8 mg/dL (0.2-1.3); Blood Urea Nitrogen 5 mg/dL (7-17); Calcium 9.5 mg/dL (8.4-10.2); Carbon Dioxide 21 mmol/L (22-30); Chloride 97 mmol/L (98-107); Estimated CRCL calculation 118 ml/min; Estimated Glomerular Filt Rate > 60; Glucose 100 mg/dL (65-105); Lipase 736 U/L (23-300); Sodium 131 mmol/L (137-145)
[2020-04-30 20:12] LABS: Add Urine Microscopic? YES; Appearance Urine Cloudy (Clear); Bacteria Urine 1+ /hpf; Bilirubin Urine 1+ (Negative); Blood Urine 2+ (Negative); Color Urine Amber (Yellow); Glucose Urine UA 1+ mg/dL (Negative); Ketones Urine 2+ mg/dL (Negative); Leukocyte Esterase Ur 1+ LEU/UL (NEGATIVE); Mucus Urine Heavy /lpf; Nitrate Urine Negative (Negative); Protein Urine 2+ mg/dL (Negative); Squamous Epithelial Cell Urine Many /hpf (Few); WBC Urine 16-20 /hpf (0-3)
[2020-04-30 20:14] LABS: Specific Grav Ur 1.032 (1.001-1.035)
[2020-04-30] MEDS: PROMETHAZINE HCL 25 MG/ML AMPUL 12.5 MG IV PUSH (20:23)
[2020-04-30] MEDS: SODIUM CHLORIDE 0.9% IV 50 ML 200 ML (20:23)
[2020-04-30] MEDS: KCL 40 MEQ/D5/0.9% SOD CHL 1,000 ML 150 ML IV CONT (20:39)
--- NOTE | 2020-04-30 20:52 | OBADM ---
This patient, Vicki Villafuerte, admitted to the OB room OB Post 113 for observation. Patient/family oriented to hospital policies and general routines including ID bracelet, bed and alarms, visiting hours, pain management, procedures, bathroom and other care routines, personal items, smoking policy, room service/diet, and visiting hours. Patient/Family are encouraged to report perceived risks to care and to ask questions if they do not understand what they are told or what they should do.
[2020-04-30 20:54] VITALS: BMI 25.0
--- NOTE | 2020-04-30 21:00 | PC.NURSE ---
1830Pt states she has been vomiting for past 7 days and has been here for same with this . Unable to keep down antibiotic prescribed for UTI. States she has not had BM since 04/08
--- NOTE | 2020-04-30 21:01 | PC.NURSE ---
1950 Unable to obtain IV attempt x2. extrusion supervisor called and will come to start.
[2020-04-30 23:46] VITALS: BP 86/56; PULSE 95; TEMP 36.8
--- NOTE | 2020-04-30 23:57 | PC.NURSE ---
2200 Pt has been sleeping quietly. Left undisturbed. No vomiting since arrival.
[2020-05-01] VITALS (8 sets, daily range): BP systolic 88–111; BP diastolic 56–70; PULSE 83–99; TEMP 36.6–37.3
--- NOTE | 2020-05-01 00:32 | PC.NURSE ---
pt resting and plan of care discussed.pt denies any needs at this time. pt instructed to alert nurse of any changes or if pt starts to feel more nauseous or starts vomiting
[2020-05-01] MEDS: KCL 40 MEQ/D5/0.9% SOD CHL 1,000 ML 150 ML IV CONT ×4 (03:06→23:18)
[2020-05-01] MEDS: PROMETHAZINE HCL 25 MG SUPP.RECT RECTAL (03:10)
--- NOTE | 2020-05-01 03:15 | PC.NURSE ---
0300 Pt has been sleeping. Pt states nausea improved after Phenergan. Nausea is returning now. IV infusing without difficulty.
[2020-05-01 04:45] LABS: Alanine Aminotransferase 139 U/L (4-35); Albumin Level 3.8 g/dL (3.5-5.1); Alkaline Phosphatase 69 U/L (38-126); Anion Gap 10 mmol/L (8-16); Aspartate Amino Transferase 82 U/L (14-36); Bilirubin,Total 0.6 mg/dL (0.2-1.3); Blood Urea Nitrogen 3 mg/dL (7-17); Calcium 8.7 mg/dL (8.4-10.2); Carbon Dioxide 24 mmol/L (22-30); Chloride 102 mmol/L (98-107); Estimated CRCL calculation 118 ml/min; Estimated Glomerular Filt Rate > 60; Glucose 129 mg/dL (65-105); Lipase 700 U/L (23-300); Potassium 3.1 mmol/L (3.4-5.0); Sodium 136 mmol/L (137-145); Uric Acid 5.3 mg/dL (2.5-7.5)
--- NOTE | 2020-05-01 05:00 | PC.NURSE ---
0500 UPdate of labs to Dr. Barth per phone.
--- NOTE | 2020-05-01 07:00 | PC.NURSE ---
Patient resting soundly.
--- NOTE | 2020-05-01 10:05 | PC.NURSE ---
Dr Barth notified of cont nausea and patient wishing to try something else. Orders received.
[2020-05-01] MEDS: PROCHLORPERAZINE EDISYLATE 10 MG/2 ML VIAL IV PUSH (11:00)
[2020-05-01 14:01] LABS: Hematocrit 30.3 % (37.0-47.0); Hemoglobin 9.8 g/dL (12.0-15.0); Mean Corpuscular HGB Conc 32.3 g/dl (32-36); Mean Corpuscular Hemoglobin 24.7 pg (26-34); Mean Corpuscular Volume 76.3 fl (80-100); Mean Platelet Volume 9.7 fl (7.4-10.4); Platelet Count Result 297 k/mm3 (150-375); Red Blood Count 3.97 M/mm3 (4.2-5.4); Red Cell Distribution Width 13.9 % (11.5-14.5); White Blood Count 7.1 K/mm3 (4.5-10.0)
[2020-05-01 14:13] LABS: Alanine Aminotransferase 135 U/L (4-35); Albumin Level 3.4 g/dL (3.5-5.1); Alkaline Phosphatase 62 U/L (38-126); Anion Gap 6 mmol/L (8-16); Aspartate Amino Transferase 87 U/L (14-36); Bilirubin,Total 0.4 mg/dL (0.2-1.3); Blood Urea Nitrogen < 2 mg/dL (7-17); Calcium 8.4 mg/dL (8.4-10.2); Carbon Dioxide 23 mmol/L (22-30); Chloride 107 mmol/L (98-107); Estimated CRCL calculation 118 ml/min; Estimated Glomerular Filt Rate > 60; Glucose 108 mg/dL (65-105); Potassium 3.7 mmol/L (3.4-5.0); Sodium 136 mmol/L (137-145)
--- NOTE | 2020-05-01 14:57 | PC.NURSE ---
Dr Barth updated on labs and no urine output for this shift. Order for Bolus received.
[2020-05-01] MEDS: DEXTROSE 5%/0.9% SOD CHL 1,000 ML 999 ML IV CONT (15:27)
--- NOTE | 2020-05-01 17:00 | PC.NURSE ---
Tolerated cranberry and sprite.
--- NOTE | 2020-05-01 17:20 | PC.NURSE ---
Dr Barth here to see patient, Order for lipase. No further orders at this time. Informed of no improvement in output.
--- NOTE | 2020-05-01 17:25 | PM.IMHP ---
H&P: HPI History of Present Illness Date/Time: 05/01/20 17:25 Chief complaint: N/V Narrative: Vicki Villafuerte is a 24 year old female , she is a 3 para 2001 at 14 weeks and 2 days gestation who presented yesterday for intractable nausea and vomiting. She has been admitted intermittently for hyperemesis gravidarum. She has not been keeping anything down with repetitive vomiting. She denies any shortness of breath. She denies any chest pain. She denies any nausea, vomiting, fever, chills. She denies any urinary symptoms. She denies any cramping or bleeding. Review of Systems Constitutional: Constitutional: Reports no additional constitutional complaints, Denies fatigue, Denies headache(s), Denies lethargy and Denies weakness Eyes: Eyes: Reports no additional eye complaints, Denies blurry vision and Denies photophobia ENT: Reports as per HPI, Denies headache(s) and Denies neck pain Cardiovascular: Cardiovascular: Denies chest pain, Denies diaphoresis, Denies leg edema, Denies palpitations and Denies dyspnea Respiratory: Respiratory: Denies hemoptysis, Denies dyspnea and Denies wheezing Gastrointestinal: Gastrointestinal: Denies abdominal pain, Denies melena, Denies bloating, Denies hematochezia, Denies nausea and Denies vomiting Genitourinary: Genitourinary: Reports no additional female genitourinary complaints Musculoskeletal: Musculoskeletal: Denies joint swelling, Denies neck pain, Denies numbness and Denies stiffness Neurologic: Denies Abnormal speech present, Denies confusion, Denies headache(s), Denies numbness and Denies weakness Psychiatric: Psychiatric: Denies anxiety, Denies confusion, Denies depression, Denies homicidal ideation and Denies suicidal ideation Endocrine: Endocrine: Denies fatigue and Denies palpitations Allergic/Immunologic: Allergic/Immunologic: Denies wheezing [facility] Social History Social History Smoking status: Never smoker Meds Home Medications and Allergies Home Medications Medication Instructions Recorded Confirmed Type ondansetron 04/30/20 History scopolamine base 04/30/20 History Allergies Allergy/AdvReac Type Severity Reaction Status Date / Time acetaminophen [From Percocet] Allergy Rash Verified 07/28/20 17:05 oxycodone [From Percocet] Allergy Rash Verified 03/13/20 17:05 Vital Signs Vital Signs - 24 hr 04/30/20 23:46 05/01/20 03:07 05/01/20 09:59 Temperature 98.2 F 97.9 F Pulse Rate 95 99 93 Blood Pressure 86/56 L 111/70 101/66 05/01/20 10:01 05/01/20 10:16 05/01/20 10:31 Temperature Pulse Rate 97 94 95 Blood Pressure 102/56 L 97/61 L 105/60 05/01/20 10:46 Temperature Pulse Rate 96 Blood Pressure 99/64 L Exam Const: General: healthy appearing, comfortable and no acute distress; No confusion Orientation/consciousness: No confusion Eyes: Direct Ophthalmoscopy: No photophobia Resp: Auscultation: clear to auscultation bilaterally, no rales, no rhonchi and no wheezes Cardio: Rate: regular rate Heart sounds: no click, no murmurs and no rubs GI: Inspection: non-distended GI Palp: No abdominal tenderness Auscultation: normal bowel sounds Neuro: General: No confusion Speech: No Abnormal speech present Extrem: General: normal to inspection, no pedal edema and no calf tenderness H&P: Results Labs Labs: Short CBC 05/01/20 Range/Units 13:56 WBC 7.1 (4.5-10.0) K/mm3 Hgb 9.8 L (12.0-15.0) g/dL Hct 30.3 L (37.0-47.0) % Plt Count 297 (150-375) k/mm3 [facility] 05/01/20 05/01/20 04:08 13:56 Sodium 136 L 136 L Potassium 3.1 L 3.7 Chloride 102 107 Carbon Dioxide 24 23 BUN 3 L < 2 L Creatinine 0.60 L 0.60 L Glucose 129 H 108 H Calcium 8.7 8.4 Liver Function 05/01/20 05/01/20 Range/Units 04:08 13:56 Total Bilirubin 0.6 0.4 (0.2-1.3) mg/dL AST 82 H 87 H (14-36) U/L ALT 139 H 135 H (4-35) U/L Alkaline P
[2020-05-01 17:51] LABS: Lipase 682 U/L (23-300)
[2020-05-01] MEDS: PROCHLORPERAZINE EDISYLATE 10 MG/2 ML VIAL IM (18:42)
--- NOTE | 2020-05-01 18:45 | PC.NURSE ---
pt called out and upon arrival at bedside pt dry heaving. pt reports pt has been vomiting for the last 40 minutes
[2020-05-01] MEDS: ONDANSETRON INJ 4 MG/2 ML VIAL IV PUSH (20:57)
--- NOTE | 2020-05-01 21:00 | PC.NURSE ---
pt assissted to restroom and instructed to notify nurse when pt is finished using restroom.
--- NOTE | 2020-05-01 23:45 | PC.NURSE ---
pt dozing upon rn arrival at bedside. pt states nausea has subsided at this time. plan of care discussed w pt and pt denies any needs at this time. pt instructed to callout if nausea returns or pt vomits.
--- NOTE | 2020-05-01 23:53 | PC.NURSE ---
pt resting and plan of care discussed.pt denies any needs at this time. pt instructed to alert nurse of any changes or if pt starts to feel nauseous or starts vomiting
[2020-05-02] VITALS (8 sets, daily range): BP systolic 88–102; BP diastolic 41–61; PULSE 86–96; RESP 16; TEMP 36.7–37.4
--- NOTE | 2020-05-02 00:20 | PC.NURSE ---
[id number]. Dr. Barth notified of pt continued nausea and the pt states feels she may need another enema. Orders received.
[2020-05-02] MEDS: PROCHLORPERAZINE EDISYLATE 10 MG/2 ML VIAL IM (01:06)
--- NOTE | 2020-05-02 04:40 | PC.NURSE ---
pt sleeping upon entering room. pt denies nausea at this time.
[2020-05-02 04:58] LABS: Mean Corpuscular HGB Conc 32.1 g/dl (32-36); Mean Corpuscular Hemoglobin 24.9 pg (26-34); Mean Corpuscular Volume 77.3 fl (80-100); Mean Platelet Volume 9.5 fl (7.4-10.4); Platelet Count Result 260 k/mm3 (150-375); Red Blood Count 3.62 M/mm3 (4.2-5.4); Red Cell Distribution Width 14.2 % (11.5-14.5); White Blood Count 7.8 K/mm3 (4.5-10.0)
[2020-05-02 05:13] LABS: Alanine Aminotransferase 107 U/L (4-35); Albumin Level 2.8 g/dL (3.5-5.1); Alkaline Phosphatase 49 U/L (38-126); Anion Gap 3 mmol/L (8-16); Aspartate Amino Transferase 74 U/L (14-36); Bilirubin,Total 0.3 mg/dL (0.2-1.3); Carbon Dioxide 22 mmol/L (22-30); Chloride 111 mmol/L (98-107); Estimated CRCL calculation 140 ml/min; Estimated Glomerular Filt Rate > 60; Glucose 90 mg/dL (65-105); Lipase 736 U/L (23-300); Potassium 3.8 mmol/L (3.4-5.0); Sodium 136 mmol/L (137-145); Uric Acid 2.6 mg/dL (2.5-7.5)
[2020-05-02 06:04] LABS: Blood Urea Nitrogen < 2 mg/dL (7-17)
[2020-05-02] MEDS: KCL 40 MEQ/D5/0.9% SOD CHL 1,000 ML 150 ML IV CONT ×2 (06:06→12:50)
--- NOTE | 2020-05-02 12:56 | PM.OBPNVD ---
OB - PN: Subj Subjective Date/time seen: 05/02/20 12:56 improved nausea today. The patient is interested in having have regular diet. She is up walking. She does have some dizziness. OB - PN: Obj Data Labs CBC & Chem 7: 05/02/20 04:45 05/02/20 04:45 Labs: Laboratory Results - last 24 hr 05/01/20 05/01/20 05/01/20 13:56 13:56 13:56 WBC 7.1 RBC 3.97 L Hgb 9.8 L Hct 30.3 L MCV 76.3 L MCH 24.7 L MCHC 32.3 RDW 13.9 Plt Count 297 MPV 9.7 Sodium 136 L Potassium 3.7 Chloride 107 Carbon Dioxide 23 Anion Gap 6 L BUN < 2 L Creatinine 0.60 L Estim Creat Clear Calc 118 Estimated GFR > 60 Glucose 108 H Uric Acid Calcium 8.4 Total Bilirubin 0.4 AST 87 H ALT 135 H Alkaline Phosphatase 62 Total Protein 7.0 Albumin 3.4 L Lipase 682 H 05/02/20 05/02/20 04:45 04:45 WBC 7.8 RBC 3.62 L Hgb 9.0 L Hct 28.0 L MCV 77.3 L MCH 24.9 L MCHC 32.1 RDW 14.2 Plt Count 260 MPV 9.5 Sodium 136 L Potassium 3.8 Chloride 111 H Carbon Dioxide 22 Anion Gap 3 L BUN < 2 L Creatinine 0.50 L Estim Creat Clear Calc 140 Estimated GFR > 60 Glucose 90 Uric Acid 2.6 Calcium 8.0 L Total Bilirubin 0.3 AST 74 H ALT 107 H Alkaline Phosphatase 49 Total Protein 6.0 L Albumin 2.8 L Lipase 736 H OB - PN A/P Assessment and Plan (1) Hyperemesis: Code(s): R11.10 - Vomiting, unspecified Status: Acute (2) Second trimester : Code(s): Z34.92 - Encounter for supervision of normal , unspecified, second trimester Status: Acute Assessment and Plan: second trimester gestation, this is a 24-year-old multiparous female with hyperemesis. Her electrolytes have improved. Her lipase remains high. Her liver enzymes are stable and improved to some degree. We will perform obstetric ultrasound to confirm well-being and growth. Time Spent With Patient Time: Total time spent is greater than 50% in coordination of care (as documented) at patient's floor/unit and/or counseling patient: Exam Const: General: comfortable, no acute distress and alert Resp: Effort & Inspection: normal respiratory effort Auscultation: no crackles, no rales and no rhonchi Cardio: Rate: regular rate Heart sounds: no click, no murmurs and no rubs GI: Inspection: non-distended GI Palp: No Tenderness to palpation present (GI) Auscultation: normal bowel sounds Other: Incision - CDI Extrem: General: normal to inspection, no pedal edema and no calf tenderness
--- NOTE | 2020-05-02 13:00 | PC.NURSE ---
Dr Barth here to see patient.
--- NOTE | 2020-05-02 13:10 | PC.NURSE ---
Patient transferred to ultrasound by wheelchair.
--- NOTE | 2020-05-02 13:35 | PC.NURSE ---
Patient transferred by wheelchair to room. Patient back to bed and meal tray at bedside.
--- NOTE | 2020-05-02 14:55 | PC.NURSE ---
Dr. Barth called and orders received for a low fat diet and for hospitalist consultation.
--- NOTE | 2020-05-02 15:01 | PC.NURSE ---
Hospitalist called regarding consultation on patient. Hospitalist states that they will come and assess her as soon as they are available.
[2020-05-02] MEDS: SCOPOLAMINE 1.5 MG PATCH TRANSDERM (17:00)
--- NOTE | 2020-05-02 17:25 | PC.NURSE ---
Patient resting in bed and watching tv. Patient instructed to order dinner prior to 1830 if she would like a meal tray. Patient denies any further needs at this time.
[2020-05-02] MEDS: DEXTROSE 5%/LACTATED RINGERS 1,000 ML 100 ML IV CONT (19:25)
[2020-05-02] MEDS: ACETAMINOPHEN 500 MG TABLET 1000 MG PO (19:37)
[2020-05-03] VITALS (7 sets, daily range): BP systolic 97–132; BP diastolic 46–94; PULSE 87–127; RESP 20; TEMP 36.3–36.8
[2020-05-03 04:24] LABS: Basophils Percent Auto 0.3 % (0.2-1.2); Eosinophils Absolute Auto 0.2 K/mm3 (0-0.3); Eosinophils Percent Auto 2.4 % (0-4.4); Hematocrit 30.2 % (37.0-47.0); Hemoglobin 9.6 g/dL (12.0-15.0); Immature Granulocyte Absolute 0.04 K/mm3 (0.00-0.031); Immature Granulocyte Percent A 0.6 % (0-0.5); Lymphocytes Absolute Auto 1.61 K/mm3 (0.9-3.2); Lymphocytes Percent Auto 23.2 % (18.3-44.2); Mean Corpuscular HGB Conc 31.8 g/dl (32-36); Mean Corpuscular Hemoglobin 25.1 pg (26-34); Mean Corpuscular Volume 79.1 fl (80-100); Mean Platelet Volume 9.8 fl (7.4-10.4); Monocytes Absolute Auto 0.5 K/mm3 (0.1-0.6); Monocytes Percent Auto 7.1 % (2.6-8.5); Neutrophils Absolute Auto 4.6 K/mm3 (1.3-6.7); Neutrophils Percent Auto 66.4 % (45.5-73.1); Platelet Count Result 276 k/mm3 (150-375); Red Blood Count 3.82 M/mm3 (4.2-5.4); Red Cell Distribution Width 14.5 % (11.5-14.5); White Blood Count 6.9 K/mm3 (4.5-10.0)
[2020-05-03 04:36] LABS: Alanine Aminotransferase 100 U/L (4-35); Albumin Level 3.1 g/dL (3.5-5.1); Alkaline Phosphatase 51 U/L (38-126); Anion Gap 5 mmol/L (8-16); Aspartate Amino Transferase 55 U/L (14-36); Bilirubin,Total 0.2 mg/dL (0.2-1.3); Calcium 8.6 mg/dL (8.4-10.2); Carbon Dioxide 23 mmol/L (22-30); Chloride 106 mmol/L (98-107); Estimated CRCL calculation 118 ml/min; Estimated Glomerular Filt Rate > 60; Glucose 85 mg/dL (65-105); Lipase 525 U/L (23-300); Magnesium 1.4 mg/dL (1.6-2.3); Potassium 3.7 mmol/L (3.4-5.0); Sodium 134 mmol/L (137-145)
[2020-05-03 04:45] LABS: Blood Urea Nitrogen < 2 mg/dL (7-17)
[2020-05-03 06:04] LABS: Thyroid Stimulating Hormone Reflex < 0.015 uIU/mL (0.465-4.68)
[2020-05-03 06:34] LABS: Free T4 Free Thyroxine Reflex 1.43 ng/dL (0.78-2.19)
[2020-05-03 08:23] LABS: Total Triiodothyronine (T3) 1.59 NG/ML (0.97-1.69)
[2020-05-03 09:00] LABS: Hepatitis B Surface Antigen Negative (Negative)
[2020-05-03 09:06] LABS: HAV RESULT Negative (Negative); Hepatitis B Core IgM Result Negative (Negative)
[2020-05-03 09:17] LABS: Hepatitis C Virus Antibody Negative (Negative)
--- NOTE | 2020-05-03 10:01 | PC.NURSE ---
0933 - Pt does not want RN to start Magnesium Sulfate until she talks with the physician's child care assistant or doctor regarding POC. Pt verbalizes understanding of NPO at this time.
--- NOTE | 2020-05-03 10:14 | PM.IMCN ---
Assessment and Plan Assessment and plan (1) Hyperemesis: Code(s): R11.10 - Vomiting, unspecified Status: Acute Assessment and Plan: -----Likely relating to causing her lipase and liver enzymes to go up. U/S of RUQ does not show gallstones or duct dilation. She did have sludge but no signs of infection or wall thickening. Could be hypoactive gallbladder which can be addressed after . Pancreatitis less likely, will order abdomen u/s to see if we can get a good look at it. Gallstone less likely since normal bilirubin with no dilation. All in all, liver enzymes and lipase improving. Will keep NPO for test and then start a liquid diet with supplements. I will order another enema. Constipation could also be the cause of this. (2) Nausea and vomiting: Code(s): R11.2 - Nausea with vomiting, unspecified Status: Acute Assessment and Plan: -----See above. continue supportive care (3) Second trimester : Code(s): Z34.92 - Encounter for supervision of normal , unspecified, second trimester Status: Acute Assessment and Plan: -----Defer to Dr. Barth (4) Constipation: Code(s): K59.00 - Constipation, unspecified Status: Acute Assessment and Plan: -----Will continue enemas (5) Transaminitis: Code(s): R74.0 - Nonspecific elevation of levels of transaminase and lactic acid dehydrogenase [LDH] Status: Acute Assessment and Plan: -----could be due to dehydration/vomiting. Hep panel negative. Gallstone/blockage less likely. No recent ETOH hx and liver looks normal on u/s. HEELP syndrome less likely was she has normal platelets but does have some protein in her urine, defer to Dr. Barth. (6) Elevated lipase: Code(s): R74.8 - Abnormal levels of other serum enzymes Status: Acute Assessment and Plan: -----Likely reaction to persistent vomiting. HPI Data of Consult Consult date: 05/03/20 Requesting Physician: Toya Barth MD Primary Care Provider: Mraky Boss, Consult Narrative Narrative: Vicki Villafuerte is a 24 year old female who is 14 weeks without any history of medical issues who presents to OB for consistent nausea, vomiting, and abdominal pain. She states she has had nausea and vomiting since she got in February but it started to get worse on labor day. She has not been able to keep anything down for 1.5 weeks and that is why she decided to come in. This is also assosicated with abdominal pain but mostly when she is actively throwing up. She says the pain starts in the lower quadrants and slowly moves up to the upper quadrants where it hurts on her RUQ and epigastric area the most. She has not had any diarrhea with this but has been constipated. Her last BM was thursday with an enema but had very few BMs prior to that. She did not have this pain with her prior pregnancys. No one else at home is sick. She has never had issues with her gallbladder or pancreas. Today, she has thrown up 8 times since 2am. She is unable to keep anything down. She had a headache when she came in across her forehead but that has improved. She denies CP, SOB, fevers, chills, rashes, wounds, changes in vision, or swelling to any part of her body. Review of Systems Review of Systems: All systems reviewed & are unremarkable except as noted in HPI and below PMFSH Past Medical History Medical History Arm fracture, left Colitis Herpes Miscarriage UTI (urinary tract infection) Surgical History Surgical History Hx of colonoscopy Hx of tonsillectomy Family History Family History (Updated 05/03/20 @ 10:20 by Rebeca Resendez PA-C) Mother Breast cancer Father Diabetes mellitus Social History Social History (Updated 05/03/20 @ 10:21 by Rebeca Mansfield
[2020-05-03] MEDS: DEXTROSE 5%/LACTATED RINGERS 1,000 ML 100 ML IV CONT ×2 (11:00→17:08)
[2020-05-03] MEDS: PROMETHAZINE HCL 25 MG SUPP.RECT RECTAL ×2 (12:11→16:07)
[2020-05-03] MEDS: MAGNESIUM SULF 2 GM/WATER 50ML 2 GM/50 ML BAG IVPB (12:15)
--- NOTE | 2020-05-03 21:09 | PM.OBPNVD ---
OB - PN: Subj Subjective Date/time seen: 05/03/20 21:09Patient's nausea stable. She was seen by Medicine for pancreatitis. she denies any vaginal bleeding or cramping. She is weak and has some dizziness. OB - PN: Obj Data Labs CBC & Chem 7: 05/03/20 04:14 05/03/20 04:14 Labs: Laboratory Results - last 24 hr 05/03/20 05/03/20 05/03/20 04:14 04:14 04:14 WBC 6.9 RBC 3.82 L Hgb 9.6 L Hct 30.2 L MCV 79.1 L MCH 25.1 L MCHC 31.8 L RDW 14.5 Plt Count 276 MPV 9.8 Immature Gran % (Auto) 0.6 H Neut % (Auto) 66.4 Lymph % (Auto) 23.2 Daniels % (Auto) 7.1 Eos % (Auto) 2.4 Baso % (Auto) 0.3 Lymph # (Auto) 1.61 Daniels # (Auto) 0.5 Eos # (Auto) 0.2 Baso # (Auto) 0.0 Abs Immat Gran (auto) 0.04 H Absolute Neuts (auto) 4.6 Absolute Nucleated RBC 0.0 Nucleated RBC % 0.0 Sodium 134 L Potassium 3.7 Chloride 106 Carbon Dioxide 23 Anion Gap 5 L BUN < 2 L Creatinine 0.60 L Estim Creat Clear Calc 118 Estimated GFR > 60 Glucose 85 Calcium 8.6 Magnesium 1.4 L Total Bilirubin 0.2 AST 55 H ALT 100 H Alkaline Phosphatase 51 Total Protein 6.0 L Albumin 3.1 L Lipase 525 H TSH (Reflex) < 0.015 L Free T4 Total T3 Hepatitis A IgM Ab Hep Bs Antigen Hep B Core IgM Ab Hepatitis C Ab Screen 05/03/20 05/03/20 05/03/20 04:14 04:14 04:14 WBC RBC Hgb Hct MCV MCH MCHC RDW Plt Count MPV Immature Gran % (Auto) Neut % (Auto) Lymph % (Auto) Daniels % (Auto) Eos % (Auto) Baso % (Auto) Lymph # (Auto) Daniels # (Auto) Eos # (Auto) Baso # (Auto) Abs Immat Gran (auto) Absolute Neuts (auto) Absolute Nucleated RBC Nucleated RBC % Sodium Potassium Chloride Carbon Dioxide Anion Gap BUN Creatinine Estim Creat Clear Calc Estimated GFR Glucose Calcium Magnesium Total Bilirubin AST ALT Alkaline Phosphatase Total Protein Albumin Lipase TSH (Reflex) Free T4 1.43 Total T3 1.59 Hepatitis A IgM Ab Negative Hep Bs Antigen Negative Hep B Core IgM Ab Negative Hepatitis C Ab Screen Negative Imaging Radiologist's impression: Impressions Abdomen Ultrasound 05/03/20 08:23 IMPRESSION: 1: Sludge filled gallbladder with positive sonographic Lopez's sign. Consider acalculous cholecystitis in the appropriate clinical setting. OB - PN A/P Assessment and Plan (1) Elevated lipase: Code(s): R74.8 - Abnormal levels of other serum enzymes Status: Acute (2) Transaminitis: Code(s): R74.0 - Nonspecific elevation of levels of transaminase and lactic acid dehydrogenase [LDH] Status: Acute (3) Constipation: Code(s): K59.00 - Constipation, unspecified Status: Acute (4) Second trimester : Code(s): Z34.92 - Encounter for supervision of normal , unspecified, second trimester Status: Acute (5) Hyperemesis: Code(s): R11.10 - Vomiting, unspecified Status: Acute Assessment and Plan: Patient's nausea vomiting is stable. She is a 24-year-old multiparas female at approximately 16 weeks gestation. Patient had an ultrasound of her Upper abdomen today. Her gallbladder is full with sludge. There is question whether she has had a stone given her elevated lipase. Medicine is seeing her. Surgery consult may be indicated here. Her liver enzymes have improved. Her electrolytes of improved. The we discussed nutrition with medicine. Patient is trying to eat and avoid any TPN. Time Spent With Patient Time: Total time spent is greater than 50% in coordination of care (as documented) at patient's floor/unit and/or counseling patient: Exam Const: General: comfortable, no acute distress and alert Resp: Effort & Inspe
--- NOTE | 2020-05-03 22:57 | PC.NURSE ---
Paused fluids at this time due to right AC IV not functional
[2020-05-04] VITALS (13 sets, daily range): BP systolic 66–97; BP diastolic 36–56; PULSE 75–116; TEMP 36.3–36.9
[2020-05-04 06:02] LABS: Hematocrit 29.5 % (37.0-47.0); Hemoglobin 9.7 g/dL (12.0-15.0); Mean Corpuscular HGB Conc 32.9 g/dl (32-36); Mean Corpuscular Hemoglobin 24.7 pg (26-34); Mean Corpuscular Volume 75.1 fl (80-100); Mean Platelet Volume 9.6 fl (7.4-10.4); Platelet Count Result 289 k/mm3 (150-375); Red Blood Count 3.93 M/mm3 (4.2-5.4); Red Cell Distribution Width 13.8 % (11.5-14.5); White Blood Count 7.8 K/mm3 (4.5-10.0)
[2020-05-04 06:18] LABS: Alanine Aminotransferase 90 U/L (4-35); Albumin Level 3.2 g/dL (3.5-5.1); Alkaline Phosphatase 53 U/L (38-126); Anion Gap 4 mmol/L (8-16); Aspartate Amino Transferase 55 U/L (14-36); Bilirubin,Total 0.2 mg/dL (0.2-1.3); Calcium 8.6 mg/dL (8.4-10.2); Carbon Dioxide 24 mmol/L (22-30); Chloride 105 mmol/L (98-107); Estimated CRCL calculation 140 ml/min; Estimated Glomerular Filt Rate > 60; Glucose 95 mg/dL (65-105); Lipase 566 U/L (23-300); Magnesium 1.8 mg/dL (1.6-2.3); Potassium 3.4 mmol/L (3.4-5.0); Sodium 133 mmol/L (137-145)
[2020-05-04 06:32] LABS: Blood Urea Nitrogen < 2 mg/dL (7-17)
--- NOTE | 2020-05-04 07:46 | PM.OBPNVD ---
OB - PN: Subj Subjective Date/time seen: 05/04/20 07:46 Last evening she had improved nausea and tolerated some p.o. liquids and food. She has not had any vomiting through the night or this morning. She has not had a bowel movement. She is declining a PICC line. she has had Very little oral fluids. OB - PN: Obj Data Labs CBC & Chem 7: 05/04/20 05:56 05/04/20 05:56 Labs: Laboratory Results - last 24 hr 05/03/20 05/03/20 05/04/20 04:14 04:14 05:56 WBC 7.8 RBC 3.93 L Hgb 9.7 L Hct 29.5 L MCV 75.1 L D MCH 24.7 L MCHC 32.9 RDW 13.8 Plt Count 289 MPV 9.6 Sodium Potassium Chloride Carbon Dioxide Anion Gap BUN Creatinine Estim Creat Clear Calc Estimated GFR Glucose Calcium Magnesium Total Bilirubin Direct Bilirubin AST ALT Alkaline Phosphatase Total Protein Albumin Lipase Total T3 1.59 Hepatitis A IgM Ab Negative Hep Bs Antigen Negative Hep B Core IgM Ab Negative Hepatitis C Ab Screen Negative 05/04/20 05:56 WBC RBC Hgb Hct MCV MCH MCHC RDW Plt Count MPV Sodium 133 L Potassium 3.4 Chloride 105 Carbon Dioxide 24 Anion Gap 4 L BUN < 2 L Creatinine 0.50 L Estim Creat Clear Calc 140 Estimated GFR > 60 Glucose 95 Calcium 8.6 Magnesium 1.8 Total Bilirubin 0.2 Direct Bilirubin 0.0 AST 55 H ALT 90 H Alkaline Phosphatase 53 Total Protein 7.0 Albumin 3.2 L Lipase 566 H Total T3 Hepatitis A IgM Ab Hep Bs Antigen Hep B Core IgM Ab Hepatitis C Ab Screen Imaging Radiologist's impression: Impressions Abdomen Ultrasound 05/03/20 08:23 IMPRESSION: 1: Sludge filled gallbladder with positive sonographic Lopez's sign. Consider acalculous cholecystitis in the appropriate clinical setting. OB - PN A/P Assessment and Plan (1) Elevated lipase: Code(s): R74.8 - Abnormal levels of other serum enzymes Status: Acute (2) Transaminitis: Code(s): R74.0 - Nonspecific elevation of levels of transaminase and lactic acid dehydrogenase [LDH] Status: Acute (3) Constipation: Code(s): K59.00 - Constipation, unspecified Status: Acute (4) Second trimester : Code(s): Z34.92 - Encounter for supervision of normal , unspecified, second trimester Status: Acute (5) Hyperemesis: Code(s): R11.10 - Vomiting, unspecified Status: Acute Assessment and Plan: Patient remains difficult to treat. She is refusing a PICC line this morning. She is not taking fluids orally. Her intravenous access is difficult to maintain. her liver enzymes remain mildly elevated and her lipase is significantly elevated. She has sludge filled gallbladder. She wants to try to take oral fluids today to avoid the PICC line. Will observe her today and see what she can tolerate orally. Will consider PICC line later this afternoon. Patient is constipated but refused enema yesterday. Time Spent With Patient Time: Total time spent is greater than 50% in coordination of care (as documented) at patient's floor/unit and/or counseling patient: Exam Const: General: comfortable, no acute distress and alert Resp: Effort & Inspection: normal respiratory effort Auscultation: no crackles, no rales and no rhonchi Cardio: Rate: regular rate Heart sounds: no click, no murmurs and no rubs GI: Inspection: non-distended GI Palp: No Tenderness to palpation present (GI) Auscultation: normal bowel sounds Other: Incision - CDI Extrem: General: normal to inspection, no pedal edema and no calf tenderness
--- NOTE | 2020-05-04 08:07 | PC.NURSE ---
At 0740 RN and Physician discussed POC with the patient after waking up from sleeping. She has kept down everything she has eaten last night including strawberry twizzlers, abraham toast, cranberry juice, a 120ml of clear soda, and jolly ranchers. She denies pain with and without assessment. She denies nausea, vomiting, and declines nausea medication. Patient states she is lightheaded with sitting up. We discussed a possible PICC line for hydration and patient declined and chose to attempt drinking more fluid.
--- NOTE | 2020-05-04 12:51 | PM.IMPN ---
Progress Note: A&P Assessment and Plan (1) Hyperemesis: Code(s): R11.10 - Vomiting, unspecified Status: Acute Assessment and Plan: -----Likely relating to causing her lipase and liver enzymes to go up. They are stable today. U/S of abdomen normal and specifically does not show gallstones or duct dilation. She did have sludge but no signs of infection or wall thickening. Could be hypoactive gallbladder which can be addressed after . Pancreatitis less likely. Gallstone less likely since normal bilirubin with no dilation. Pt has been eating candy and I have asked her to stick to her diet to see how she does. Will continue supplements and IV fluids. Hopefully she can go home tomorrow. She is dehydrated with orthostatic hypotension which hopfully will resolve once the mid line is in with fluids. Continue BM regimen to facilitate a BM. (2) Nausea and vomiting: Code(s): R11.2 - Nausea with vomiting, unspecified Status: Acute Assessment and Plan: -----See above. continue supportive care (3) Second trimester : Code(s): Z34.92 - Encounter for supervision of normal , unspecified, second trimester Status: Acute Assessment and Plan: -----Defer to Dr. Barth (4) Constipation: Code(s): K59.00 - Constipation, unspecified Status: Acute Assessment and Plan: -----Will continue enemas and mag citrate. (5) Transaminitis: Code(s): R74.0 - Nonspecific elevation of levels of transaminase and lactic acid dehydrogenase [LDH] Status: Acute Assessment and Plan: -----could be due to dehydration/vomiting. Hep panel negative. Gallstone/blockage less likely. No recent ETOH hx and liver looks normal on u/s. HEELP syndrome less likely was she has normal platelets but does have some protein in her urine, defer to Dr. Barth. (6) Elevated lipase: Code(s): R74.8 - Abnormal levels of other serum enzymes Status: Acute Assessment and Plan: -----Likely reaction to persistent vomiting. (7) Orthostatic hypotension: Code(s): I95.1 - Orthostatic hypotension Status: Acute Assessment and Plan: -----d/t dehydration. Continue IV fluids and monitor. Time Spent With Patient Time with patient: 25 - 35 minutes Subjective Date/time seen: 05/04/20 12:51 Interval history: Pt is a 24 y/o here for nausea and vomiting. Patient was seen today with nurse at bedside. The patient initially stated that she has been having nausea and vomiting all day but the nurse stated that she hasn't vomited all day and when I asked the patient again, she did reveal that she actually has not vomited she just felt like it. I asked her to show the nurse everytime she vomits so it can be measured. She says she has been drinking liquids and doing okay but just can't seem to get enough liquids in. When asked if she had been eating she said no but the nurse recalls that she ate twizzlers, jollyranchers and other snacks her mom brought and she did okay with that. I talked to her about sticking to the diet that is ordered and we will continue with IV hydration once we get IV access. She denies shortness of breath, chest pain, fevers, chills, or swelling to the extremities. He is still not had a bowel movement and yesterday she requested enemas but today she agreed to Mag citrate. She has been passing gas. She has darker urine and orthostatic d/t dehydration. Review of Systems Review of Systems: All systems reviewed & are unremarkable except as noted in HPI and below Exam Narrative: Exam Narrative: General:Well developed well nourished patient HEENT: Normocephalic, atraumatic, PERRL, Sclerae anicteric, oral mucosa dry Neck: Supple Resp: CTA Heart: RRR with no murmurs Abd: Soft, nontender. Pain to palpation to all areas of the abdomen. No distention. Quiet bowel sounds Skin: Warm and dry Extremities: No s
[2020-05-04] MEDS: LACTATED RINGERS 1,000 ML 999 ML IV CONT (13:31)
--- NOTE | 2020-05-04 13:33 | PC.NURSE ---
Pt doesn't want to drink the Citrate Magnesium at this time
[2020-05-04] MEDS: DEXTROSE 5%/LACTATED RINGERS 1,000 ML 125 ML IV CONT ×2 (14:30→22:34)
[2020-05-04] MEDS: MAGNESIUM CITRATE 300 ML BTL 150 ML PO (14:31)
--- NOTE | 2020-05-04 17:01 | PCCCNOTE ---
Received notification per nursing of midline placement; need for infusion care at home. Referral made to [facility] and they can accept pt. needs at home. They are aware of likely discharge tomorrow on 05/05/20 and can accommodate. Discharge instructions to be faxed per nursing once available.
--- NOTE | 2020-05-04 20:05 | PC.NURSE ---
pt was unable to eat salad, states it had a bad taste after eating 2 bites. pt finished a smoothie and tolerated applesause. pt sipping hebert dry soda.
[2020-05-05] MEDS: DEXTROSE 5%/LACTATED RINGERS 1,000 ML 125 ML IV CONT (05:28)
[2020-05-05 07:32] VITALS: BP 102/65; PULSE 85
[2020-05-05 07:41] VITALS: TEMP 36.7
[2020-05-05 07:44] LABS: Hematocrit 30.2 % (37.0-47.0); Hemoglobin 9.8 g/dL (12.0-15.0); Mean Corpuscular HGB Conc 32.5 g/dl (32-36); Mean Corpuscular Hemoglobin 25.1 pg (26-34); Mean Corpuscular Volume 77.2 fl (80-100); Mean Platelet Volume 9.6 fl (7.4-10.4); Platelet Count Result 268 k/mm3 (150-375); Red Blood Count 3.91 M/mm3 (4.2-5.4); Red Cell Distribution Width 14.3 % (11.5-14.5); White Blood Count 7.4 K/mm3 (4.5-10.0)
--- NOTE | 2020-05-05 07:44 | PC.NURSE ---
0732- In patient room to draw blood, patient states she has no nausea and has not vomited since at all today or yesterday. States she is ready to go home today.
[2020-05-05 08:09] LABS: Alanine Aminotransferase 73 U/L (4-35); Alkaline Phosphatase 51 U/L (38-126); Anion Gap 4 mmol/L (8-16); Aspartate Amino Transferase 37 U/L (14-36); Bilirubin,Total 0.2 mg/dL (0.2-1.3); CRP < 0.5 mg/dL (<1.0); Calcium 8.3 mg/dL (8.4-10.2); Carbon Dioxide 25 mmol/L (22-30); Chloride 105 mmol/L (98-107); Estimated CRCL calculation 140 ml/min; Estimated Glomerular Filt Rate > 60; Glucose 91 mg/dL (65-105); Lipase 537 U/L (23-300); Magnesium 1.6 mg/dL (1.6-2.3); Potassium 3.7 mmol/L (3.4-5.0); Sodium 134 mmol/L (137-145)
[2020-05-05 08:11] LABS: Blood Urea Nitrogen < 2 mg/dL (7-17)
--- NOTE | 2020-05-05 10:31 | PC.NURSE ---
1030- DANNY Jose here to see patient. No new orders. Ok to be discharged from their standpoint. 1032- Spoke with Dr. Barth, patient may be discharged to home. Needs to be seen in the office on Thursday05/09/2020. Will be discharged with Midline access and home health will contact patient on thursday.
--- NOTE | 2020-05-05 10:37 | PM.IMPN ---
Progress Note: A&P Assessment and Plan (1) Hyperemesis: Code(s): R11.10 - Vomiting, unspecified Status: Acute Assessment and Plan: -----Likely relating to causing her lipase and liver enzymes to elevate. They are actually trending down and clinically the pt is better. Okay to go home from a medical standpoint. U/S of abdomen normal and specifically does not show gallstones or duct dilation. She did have sludge but no signs of infection or wall thickening. Could be hypoactive gallbladder which can be addressed after if she continues to have n/v and abdominal pain. Pancreatitis less likely. Gallstone less likely since normal bilirubin with no dilation. (2) Nausea and vomiting: Code(s): R11.2 - Nausea with vomiting, unspecified Status: Acute Assessment and Plan: -----See above. continue supportive care (3) Second trimester : Code(s): Z34.92 - Encounter for supervision of normal , unspecified, second trimester Status: Acute Assessment and Plan: -----Defer to Dr. Barth (4) Constipation: Code(s): K59.00 - Constipation, unspecified Status: Acute Assessment and Plan: -----pt to take OTC medications if she continues to be constipated once discharged. (5) Transaminitis: Code(s): R74.0 - Nonspecific elevation of levels of transaminase and lactic acid dehydrogenase [LDH] Status: Acute Assessment and Plan: -----could be due to dehydration/vomiting. Hep panel negative. Gallstone/blockage less likely. No recent ETOH hx and liver looks normal on u/s. HEELP syndrome less likely was she has normal platelets but does have some protein in her urine, defer to Dr. Barth. (6) Elevated lipase: Code(s): R74.8 - Abnormal levels of other serum enzymes Status: Acute Assessment and Plan: -----Likely reaction to persistent vomiting. (7) Orthostatic hypotension: Code(s): I95.1 - Orthostatic hypotension Status: Acute Assessment and Plan: -----clinically improved with IV fluids. Subjective Date/time seen: 05/05/20 10:37 Interval history: Pt is a 24 y/o here for nausea and vomiting. Patient was seen today and has only vomited once but overall doing much better. She has been snacking here and there and keeping liquids and food down. She still has not had a bm but is passing gas. She plans to go home later today with a midline so she can get fluids outpt. She has no dizziness or lightheadedness when she stands. No CP or SOB. Exam Narrative: Exam Narrative: General:Well developed well nourished patient resting in bed in NAD HEENT: Normocephalic, atraumatic, PERRL, Sclerae anicteric, oral mucosa moist Neck: Supple Resp: CTA Heart: RRR with no murmurs Abd: Soft, nontender. Pain to palpation to all areas of the abdomen. No distention. Quiet bowel sounds Skin: Warm and dry Extremities: No swelling, erythema or pain to palpation Neuro: Alert and Oriented x4 . CN 2-12 intact. No focal neurological deficits. Objective Data Vital Signs Vital Signs: Vital Signs - 24 hr 05/04/20 11:06 05/04/20 11:07 05/04/20 11:08 Temperature Pulse Rate 94 96 93 Blood Pressure 86/55 L 97/56 L 93/55 L 05/04/20 11:10 05/04/20 20:06 05/04/20 20:15 Temperature 97.3 F L Pulse Rate 116 H 75 Blood Pressure 85/52 L 92/53 L 05/05/20 07:32 05/05/20 07:41 Temperature 98.1 F Pulse Rate 85 Blood Pressure 102/65 Intake/Output Intake/Output: Intake & Output 05/02/20 05/03/20 05/04/20 05/05/20 23:59 23:59 23:59 23:59 Intake Total 3000 1450 2220 900 Output Total 2100 1400 1200 700 Balance 362 77 7480 200 Meds/Results Medications: Active Medications Generic Name Dose Route Start Last Admin Trade Name Freq PRN Reason Stop Dose Admin Dextrose/Lactated Ringer's 1,000 mls @ 125 mls/hr 05/02/20 19:10 05/05/20 05:28 Dextrose 5%/Lactated Ri
--- NOTE | 2020-06-03 20:52 | PM.DS ---
DS: Admitting Diagnosis Admitting Diagnosis Admitting Diagnosis: N/V DS: Discharge Diagnosis Discharge Diagnosis (1) Hyperemesis: Code(s): R11.10 - Vomiting, unspecified Status: Acute (2) Constipation: Code(s): K59.00 - Constipation, unspecified Status: Acute DS: Summary Hospital Course Hospital Course: this patient is a 24-year-old multiparous female in the 1st trimester who has med for nausea vomiting and constipation. She has been admitted already in this . She has severe hyperemesis. She was stable throughout her hospital stay. Multiple treatments for attempted for her nausea and vomiting. She did get home health and a medial line. She is discharged home with follow-up Status at Discharge Functional status at discharge: independent ambulation Time Spent with Patient Time attestation: Total time spent providing and/or coordinating discharge services: Discharge Plan Discharge Attending physician on discharge: Toya Barth Consulting providers: Maisha Pereira ; Rebeca Resendez ; Alan Montoya ; Prakash Escobar Discharging Clinician: Toya Barth Anticipated Discharge Date/Time: 05/05/20 11:30 Patient Disposition: Home, Self-Care Activity: as tolerated Diet: as tolerated and bland Discharge Instructions: per care coordination, [facility] is arranged for Infusion, flushes and dressing changes at home. [facility] can be reached at [phone]. Please fax discharge instructions to [phone] once complete. Thank you. OB ANTEPARTUM DISCHARGE INSTRUCTIONS This information is given to help you properly care for yourself at home after your discharge from the hospital. Follow these instructions until your doctor tells you otherwise. DIET: Small Frequent Feedings Drink at Least Eight 8-Ounce Glasses of Caffeine-Free Beverages Daily [place] Additional Diet Instructions: ACTIVITY: As Tolerated Additional Activity Instructions: RETURN TO LABOR AND DELIVERY IF YOU HAVE: Any Leakage of Fluid Vaginal Bleeding Additional Reasons to Return to Labor and Delivery: FOLLOW-UP CARE: Keep Next Scheduled Appointment To see Dr. Barth in/on 05/09/2020 Valuables released to patient or family? N/A Medications from home returned to patient? N/A I Acknowledge Receipt of and Understand the Above Instructions IF YOU HAVE ANY QUESTIONS REGARDING THESE INSTRUCTIONS, PLEASE CALL [phone]. IF PROBLEMS ARISE, CALL YOUR PROVIDER. IF EMERGENCY CARE IS NEEDED, [facility] EMERGENCY ROOM IS AVAILABLE 24 HOURS A DAY. Stand Alone Forms: General Discharge Information Follow-up/Referrals: Toya Barth MD [Physician] - Discharge Medications: Discontinued scopolamine base 1 mg over 3 days patch 3 day 1 mg transdermal DIRECTED RF: 0 ondansetron 4 mg tablet,disintegrating 4 mg PO Q4-6H PRN (Reason: nausea) RF: 0 No Action nitrofurantoin monohyd/m-cryst 100 mg capsule 100 mg PO DAILY RF: 0 ondansetron 4 mg tablet,disintegrating 4 mg PO Q8H Qty: 30 RF: 4 Date of admission: 05/02/20 14:07 Primary Care Provider: Gera,Marky Angel Admitting Provider: Toya Barth Attending physician on admission: Toya Barth Quality VTE Prophylaxis VTE prophylaxis: mechanical ordered
== END 2020-05-05 10:58 | disposition home or self-care (01) | DRG 832 ==
PROVIDERS: General Practice; Nurse Practitioner; Physician Assistant; Admitting Provider Obstetrics & Gynecology; PCP Internal Medicine; Visit Provider Obstetrics & Gynecology
DX: O21.0 Mild hyperemesis gravidarum (principal); O99.412 Diseases of the circulatory system complicating pregnancy, second trimester; Z3A.14 14 weeks gestation of pregnancy; I95.1 Orthostatic hypotension; O99.612 Diseases of the digestive system complicating pregnancy, second trimester; K59.00 Constipation, unspecified; R74.0 Nonspecific elevation of levels of transaminase and lactic acid dehydrogenase [LDH]; R74.8 Abnormal levels of other serum enzymes; O99.282 Endocrine, nutritional and metabolic diseases complicating pregnancy, second trimester; E86.0 Dehydration
CPT/HCPCS: 36415; 76700; 76705; 76805; 80048; 80053; 80074; 80076; 81001; 83690; 83735; 84439; 84443; 84480; 84550; 85025; 85027; 86140; 87086; A9270; C1751; J0696; J0780; J2405; J2550; J3475; J3480; J7042; J7120; J7121

== ENCOUNTER 2020-05-08 21:18 | Emergency (ER) | payer BC, MEDICAID, SELFPAY ==
[2020-05-08 21:25] VITALS: BP 114/80; PULSE 87; RESP 20; TEMP 36.4; O2SAT 98
--- NOTE | 2020-05-08 21:55 | ED.GENADULT ---
HPI - General Adult General Chief complaint: Recheck/Abnormal Lab/Rx Stated complaint: MID LINE BLEEDING AT SITE Time Seen by Provider: 05/08/20 21:31 Source: patient History of Present Illness HPI narrative: Pt c/o her right arm midline picc is leaking, started tonight. Pt states her picc line was placed this past Thursday for her hyperemesis gravidarum. Pt denies any swelling, redness or pain in the midline site. Denies fever or sob. No other complaints. Related Data Allergies Allergy/AdvReac Type Severity Reaction Status Date / Time oxycodone [From Percocet] Allergy Rash Verified 03/13/20 17:05 Review of Systems Review of Systems: All systems reviewed & are unremarkable except as noted in HPI and below Constitutional: Constitutional: Denies body ache(s), Denies chills, Denies excessive sweating, Denies fatigue, Denies fever(s), Denies headache(s), Denies lethargy, Denies malaise, Denies weakness and Denies weight loss Eyes: Eyes: Denies blurry vision, Denies change in vision and Denies loss of vision ENT: Denies dizziness, Denies ear discharge, Denies headache(s), Denies lip swelling, Denies epistaxis, Denies nasal congestion, Denies neck pain, Denies throat swelling and Denies tongue swelling Cardiovascular: Cardiovascular: Denies chest pain, Denies chest pain at rest, Denies chest pain with activity, Denies diaphoresis, Denies rapid heart rate, Denies edema, Denies irregular heart rhythm, Denies lightheadedness, Denies palpitations, Denies dyspnea and Denies dyspnea on exertion Respiratory: Respiratory: Denies chest congestion, Denies cough, Denies hemoptysis, Denies dyspnea and Denies dyspnea on exertion Gastrointestinal: Gastrointestinal: Denies abdominal pain, Denies melena, Denies hematochezia, Denies diarrhea, Denies nausea, Denies vomiting and Denies hematemesis Musculoskeletal: Musculoskeletal: Denies abnormal gait, Denies deformity, Denies joint swelling, Denies limited range of motion, Denies neck pain and Denies numbness Neurologic: Denies Abnormal speech present, Denies abnormal gait, Denies confusion, Denies dizziness, Denies headache(s), Denies focal weakness, Denies loss of vision, Denies numbness, Denies Other visual disturbances, Denies Sensory deficit (Neuro) and Denies weakness Psychiatric: Psychiatric: Denies confusion, Denies depression, Denies auditory hallucinations, Denies homicidal ideation and Denies suicidal ideation Endocrine: Endocrine: Denies cold intolerance, Denies excessive sweating, Denies fatigue, Denies heat intolerance and Denies palpitations Hematologic/Lymphatic: Hematologic/Lymphatic: Denies easy bleeding and Denies easy bruising Allergic/Immunologic: Allergic/Immunologic: Denies lip swelling, Denies throat swelling and Denies tongue swelling PMFSH Family History Family History (Updated 05/03/20 @ 10:20 by Rebeca Resendez PA-C) Mother Breast cancer Father Diabetes mellitus Social History Social History (Updated 05/03/20 @ 10:21 by Rebeca Resendez PA-C) Social History: she does not drink, smoke, or do drugs. 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 She would like to be a full code. Smoking status: Never smoker Gender identity (if verbalized by the patient): Female Exam Const: General: cooperative, healthy appearing, comfortable, no acute distress, well developed, alert and awake; No confusion Orientation/consciousness: oriented to person, oriented to place, oriented to time, patient oriented x3 and No confusion Limitations: no limitations HENMT: Head: normal to inspection, normocephalic and atraumatic Ears: hearing grossly normal bilaterally, TM normal on the right and TM normal on the left General nose exam: Normal external nose present, Normal nares present and No nasal discharge present Face and sinus: normal facial exam Mouth: Yes Normal oral and palatal mucosa present, Yes li
--- NOTE | 2020-05-08 23:02 | PC.NURSE ---
reapplied a sterile dressing to mid-line and flushed with no leaks.
[2020-05-08 23:36] VITALS: BP 101/72; PULSE 85; RESP 18; O2SAT 99
== END 2020-05-08 23:39 | disposition home or self-care (01) ==
PROVIDERS: Emergency Provider Emergency Medicine; PCP Internal Medicine
DX: O26.899 Other specified pregnancy related conditions, unspecified trimester (principal); Z45.2 Encounter for adjustment and management of vascular access device; O21.0 Mild hyperemesis gravidarum; Z3A.00 Weeks of gestation of pregnancy not specified
CPT/HCPCS: 99282

== ENCOUNTER 2020-05-09 20:05 | Observation (INO) | payer BC, MEDICAID, SELFPAY ==
[2020-05-09 13:46] VITALS: BP 100/64; PULSE 90
--- NOTE | 2020-05-09 14:18 | PC.NURSE ---
Admitted for midline leaking assessment by Venous access nurse
[2020-05-09] MEDS: ALTEPLASE 2 MG VIAL (CATHFLO) 1 MG IV PUSH ×2 (14:33→17:31)
[2020-05-09 20:00] VITALS: BP 98/53; PULSE 92; RESP 16; TEMP 37.1; O2SAT 100
--- NOTE | 2020-05-10 05:01 | PC.NURSE ---
Removed Cathflo from midline 05/09/2020 @ 1940 with successful blood return. Was able to flush 10 ml saline, changed dressing and flushed another 20ml of saline to ensure patentcy. Dressing looked dry and intact; however, upon assessing 30 minutes later site had leaked a small amount. Called to notify Dr Barth and receive further orders. He suggested to contact Iwona Mart, Venous account administrator for suggestions on situation. Pt has not had emesis since admission and was able to keep eat grilled cheese and welsh fries for supper and keep it down. Dr Barth said he will reevaluate the situation 05/10/2020 with the input of Iwona. Will continue to monitor patient throughout the night, left a message with Iwona in regards to situation.
[2020-05-10 08:00] VITALS: BP 88/45; BP 88/48; PULSE 82; RESP 16; TEMP 36.7; O2SAT 100
--- NOTE | 2020-05-10 08:05 | PM.IMHP ---
H&P: HPI History of Present Illness Date/Time: 05/10/20 08:05 Chief complaint: Midline Assessment Narrative: Vicki Villafuerte is a 24 year old female This patient is a 24-year-old gravid female at approximately 15 weeks gestation who presents for problems associated with vascular access line. She has been leaking around the line. She was admitted for observation. The continues to leak. We have agreed to remove the line. Patient will be discharged and the prescribe Zofran. Review of Systems Constitutional: Constitutional: Reports no additional constitutional complaints, Denies fatigue, Denies headache(s), Denies lethargy and Denies weakness Eyes: Eyes: Reports no additional eye complaints, Denies blurry vision and Denies photophobia ENT: Reports as per HPI, Denies headache(s) and Denies neck pain Cardiovascular: Cardiovascular: Denies chest pain, Denies diaphoresis, Denies leg edema, Denies palpitations and Denies dyspnea Respiratory: Respiratory: Denies hemoptysis, Denies dyspnea and Denies wheezing Gastrointestinal: Gastrointestinal: Denies abdominal pain, Denies melena, Denies bloating, Denies hematochezia, Denies nausea and Denies vomiting Genitourinary: Genitourinary: Reports no additional female genitourinary complaints Musculoskeletal: Musculoskeletal: Denies joint swelling, Denies neck pain, Denies numbness and Denies stiffness Neurologic: Denies Abnormal speech present, Denies confusion, Denies headache(s), Denies numbness and Denies weakness Psychiatric: Psychiatric: Denies anxiety, Denies confusion, Denies depression, Denies homicidal ideation and Denies suicidal ideation Endocrine: Endocrine: Denies fatigue and Denies palpitations Allergic/Immunologic: Allergic/Immunologic: Denies wheezing [facility] Family History Family History (Updated 05/03/20 @ 10:20 by Rebeca Resendez PA-C) Mother Breast cancer Father Diabetes mellitus Social History Social History (Updated 05/03/20 @ 10:21 by Rebeca Resendez PA-C) Social History: she does not drink, smoke, or do drugs. 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 She would like to be a full code. Smoking status: Never smoker Gender identity (if verbalized by the patient): Female Meds Home Medications and Allergies Allergies Allergy/AdvReac Type Severity Reaction Status Date / Time oxycodone [From Percocet] Allergy Rash Verified 03/13/20 17:05 Vital Signs Vital Signs - 24 hr 05/09/20 13:46 05/09/20 20:00 Temperature 98.7 F Pulse Rate 90 92 Respiratory Rate 16 Blood Pressure 100/64 98/53 L Pulse Oximetry 100 Exam Const: General: healthy appearing, comfortable and no acute distress; No confusion Orientation/consciousness: No confusion Eyes: Direct Ophthalmoscopy: No photophobia Resp: Auscultation: clear to auscultation bilaterally, no rales, no rhonchi and no wheezes Cardio: Rate: regular rate Heart sounds: no click, no murmurs and no rubs GI: Inspection: non-distended GI Palp: No abdominal tenderness Auscultation: normal bowel sounds Neuro: General: No confusion Speech: No Abnormal speech present Extrem: General: normal to inspection, no pedal edema and no calf tenderness Assessment and Plan Assessment and plan (1) Hyperemesis: Code(s): R11.10 - Vomiting, unspecified Status: Acute Assessment and Plan: Vicki Villafuerte is a 24 year old female This patient is a 24-year-old gravid female at approximately 15 weeks gestation who presents for problems associated with vascular access line. She has been leaking around the line. She was admitted for observation. The continues to leak. We have agreed to remove the line. Patient will be discharged and the prescribe Zofran.
== END 2020-05-10 14:20 | disposition home or self-care (01) ==
LOC: ANHOBOP 22:47 → ANHOB2 05-10 08:09
PROVIDERS: Admitting Provider Obstetrics & Gynecology; PCP Internal Medicine; Visit Provider Obstetrics & Gynecology
DX: O21.9 Vomiting of pregnancy, unspecified (principal); Z3A.15 15 weeks gestation of pregnancy; T82.898A Other specified complication of vascular prosthetic devices, implants and grafts, initial encounter; Y83.8 Other surgical procedures as the cause of abnormal reaction of the patient, or of later complication, without mention of misadventure at the time of the procedure
CPT/HCPCS: 96374; 96376; 99199; G0378; G0379; J2997

== ENCOUNTER 2020-05-12 22:00 | Inpatient (IN) | payer BC, MEDICAID, SELFPAY ==
[2020-05-12 22:12] VITALS: BP 105/79; PULSE 104
[2020-05-12 22:15] VITALS: TEMP 36.8
[2020-05-12 22:30] VITALS: BP 136/75; PULSE 95
[2020-05-12 22:45] VITALS: BP 110/69; PULSE 90
[2020-05-12] MEDS: DEXTROSE 5%/LACTATED RINGERS 1,000 ML 999 ML IV CONT (22:56)
[2020-05-12] MEDS: ONDANSETRON INJ 4 MG/2 ML VIAL IV PUSH (22:56)
[2020-05-12 23:00] VITALS: BP 105/64; PULSE 85
[2020-05-12 23:21] LABS: Basophils Percent Auto 0.2 % (0.2-1.2); Eosinophils Absolute Auto 0.1 K/mm3 (0-0.3); Eosinophils Percent Auto 0.9 % (0-4.4); Hematocrit 34.2 % (37.0-47.0); Hemoglobin 11.2 g/dL (12.0-15.0); Immature Granulocyte Absolute 0.06 K/mm3 (0.00-0.031); Immature Granulocyte Percent A 0.6 % (0-0.5); Lymphocytes Absolute Auto 1.65 K/mm3 (0.9-3.2); Lymphocytes Percent Auto 16.4 % (18.3-44.2); Mean Corpuscular HGB Conc 32.7 g/dl (32-36); Mean Corpuscular Hemoglobin 25.1 pg (26-34); Mean Corpuscular Volume 76.7 fl (80-100); Mean Platelet Volume 9.4 fl (7.4-10.4); Monocytes Absolute Auto 0.7 K/mm3 (0.1-0.6); Monocytes Percent Auto 6.5 % (2.6-8.5); Neutrophils Absolute Auto 7.6 K/mm3 (1.3-6.7); Neutrophils Percent Auto 75.4 % (45.5-73.1); Platelet Count Result 374 k/mm3 (150-375); Red Blood Count 4.46 M/mm3 (4.2-5.4); Red Cell Distribution Width 14.4 % (11.5-14.5); White Blood Count 10.1 K/mm3 (4.5-10.0)
[2020-05-12 23:27] LABS: Add Urine Microscopic? YES; Appearance Urine Cloudy (Clear); Bacteria Urine 1+ /hpf; Bilirubin Urine 1+ (Negative); Blood Urine 1+ (Negative); Color Urine Amber (Yellow); Glucose Urine UA 1+ mg/dL (Negative); Ketones Urine 2+ mg/dL (Negative); Leukocyte Esterase Ur 2+ LEU/UL (NEGATIVE); Mucus Urine Heavy /lpf; Nitrate Urine Negative (Negative); Protein Urine 2+ mg/dL (Negative); Squamous Epithelial Cell Urine Many /hpf (Few)
[2020-05-12 23:30] LABS: Alanine Aminotransferase 34 U/L (4-35); Albumin Level 4.1 g/dL (3.5-5.1); Alkaline Phosphatase 80 U/L (38-126); Anion Gap 13 mmol/L (8-16); Aspartate Amino Transferase 27 U/L (14-36); Bilirubin,Total 0.3 mg/dL (0.2-1.3); Blood Urea Nitrogen 2 mg/dL (7-17); Calcium 9.4 mg/dL (8.4-10.2); Carbon Dioxide 24 mmol/L (22-30); Chloride 100 mmol/L (98-107); Estimated Glomerular Filt Rate > 60; Glucose 124 mg/dL (65-105); Sodium 137 mmol/L (137-145)
--- NOTE | 2020-05-12 23:37 | OBADM ---
This patient, Vicki Villafuerte, admitted to the OB room OB Post 117 for observation. Patient/family oriented to hospital policies and general routines including ID bracelet, bed and alarms, visiting hours, pain management, procedures, bathroom and other care routines, personal items, smoking policy, room service/diet, and visiting hours. Patient/Family are encouraged to report perceived risks to care and to ask questions if they do not understand what they are told or what they should do.
--- NOTE | 2020-05-13 00:41 | PC.NURSE ---
0005 Fleets enema given to pt. Pt has not vomited since Zofran. IV infusing without difficulty.
--- NOTE | 2020-05-13 00:42 | PC.NURSE ---
Pt very small noted. Pt states she feels as if there is more stool and requesting Soap Suds enema she was given last admission.
[2020-05-13] MEDS: KCL 40 MEQ/0.9% SOD CHL 1,000 ML 125 ML IV CONT ×2 (01:30→09:32)
--- NOTE | 2020-05-13 02:14 | PC.NURSE ---
Pt states no results from Soap suds enema. Pt states nausea is improved. States she still feels like she is constipated. Pt also states discomfort in low back. K pad to back.
--- NOTE | 2020-05-13 03:23 | PC.NURSE ---
Pt sleeping. Left undisturbed at this time.
[2020-05-13 07:24] VITALS: BP 105/57; PULSE 88; RESP 16; TEMP 36.6
--- NOTE | 2020-05-13 07:24 | PC.NURSE ---
2nd Eve Mist given. Pt declines popcicle, jello, or wanting to try toast at this time. States no nausea at present.
--- NOTE | 2020-05-13 07:33 | PC.NURSE ---
2340 HEART TONES DOPPLED 150's/
--- NOTE | 2020-05-13 11:36 | PM.IMHP ---
H&P: HPI History of Present Illness Date/Time: 05/13/20 11:36 This patient is a 24-year-old 3 para 2 at 15 weeks and 5 days gestation who has suffered with hyperemesis gravidarum and chronic constipation for many weeks now. She is admitted for hyperemesis and constipation. She has not had a bowel movement for about 10 days. She has intractable nausea vomiting and is not getting any fluids down on admission. After admission and treatment her nausea has improved. She denies any chest pain or shortness of breath. She denies any fever chills. Chief complaint: hyperemesis Narrative: Vicki Villafuerte is a 24 year old female Review of Systems Constitutional: Constitutional: Reports no additional constitutional complaints, Denies fatigue, Denies headache(s), Denies lethargy and Denies weakness Eyes: Eyes: Reports no additional eye complaints, Denies blurry vision and Denies photophobia ENT: Reports as per HPI, Denies headache(s) and Denies neck pain Cardiovascular: Cardiovascular: Denies chest pain, Denies diaphoresis, Denies leg edema, Denies palpitations and Denies dyspnea Respiratory: Respiratory: Denies hemoptysis, Denies dyspnea and Denies wheezing Gastrointestinal: Gastrointestinal: Denies abdominal pain, Denies melena, Denies bloating, Denies hematochezia, Denies nausea and Denies vomiting Genitourinary: Genitourinary: Reports no additional female genitourinary complaints Musculoskeletal: Musculoskeletal: Denies joint swelling, Denies neck pain, Denies numbness and Denies stiffness Neurologic: Denies Abnormal speech present, Denies confusion, Denies headache(s), Denies numbness and Denies weakness Psychiatric: Psychiatric: Denies anxiety, Denies confusion, Denies depression, Denies homicidal ideation and Denies suicidal ideation Endocrine: Endocrine: Denies fatigue and Denies palpitations Allergic/Immunologic: Allergic/Immunologic: Denies wheezing [facility] Family History Family History (Updated 05/03/20 @ 10:20 by Rebeca Resendez PA-C) Mother Breast cancer Father Diabetes mellitus Social History Social History (Updated 05/03/20 @ 10:21 by Rebeca Resendez PA-C) Social History: she does not drink, smoke, or do drugs. 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 She would like her mom, Monica Steiner, as her decision maker if she cannot make her own decisions. She would like to be a full code. Smoking status: Never smoker Gender identity (if verbalized by the patient): Female Meds Home Medications and Allergies Home Medications Medication Instructions Recorded Confirmed Type ondansetron 4 mg PO Q8H #30 tablet 05/10/20 05/13/20 Rx nitrofurantoin monohyd/m-cryst 100 mg PO DAILY 05/13/20 05/13/20 History Allergies Allergy/AdvReac Type Severity Reaction Status Date / Time oxycodone [From Percocet] Allergy Rash Verified 03/13/20 17:05 Vital Signs Vital Signs - 24 hr 05/12/20 22:12 05/12/20 22:30 05/12/20 22:45 Pulse Rate 104 H 95 90 Blood Pressure 105/79 136/75 110/69 05/12/20 23:00 05/13/20 07:24 Pulse Rate 85 88 Blood Pressure 105/64 105/57 L Exam Const: General: healthy appearing, comfortable and no acute distress; No confusion Orientation/consciousness: No confusion Eyes: Direct Ophthalmoscopy: No photophobia Resp: Auscultation: clear to auscultation bilaterally, no rales, no rhonchi and no wheezes Cardio: Rate: regular rate Heart sounds: no click, no murmurs and no rubs GI: Inspection: non-distended GI Palp: No abdominal tenderness Auscultation: normal bowel sounds Neuro: General: No confusion Speech: No Abnormal speech present Extrem: General: normal to inspection, no pedal edema and no calf tenderness H&P: Results Labs Labs: Short CBC 05/12/20 Range/Units 23:06 WBC 10.1 H (4.5-10.0) K/mm3 Hgb 11.2 L (12.0-15.0) g/dL Hct 34.2 L (37.0-47.0) % Plt Count 374 (150-375) k/mm3 [facility] 05/12/20 23:06 Sodium 137 Potassium 3.0 L Chl
[2020-05-13 12:06] LABS: Alanine Aminotransferase 25 U/L (4-35); Albumin Level 3.1 g/dL (3.5-5.1); Alkaline Phosphatase 59 U/L (38-126); Anion Gap 5 mmol/L (8-16); Aspartate Amino Transferase 21 U/L (14-36); Bilirubin,Total 0.3 mg/dL (0.2-1.3); Calcium 8.4 mg/dL (8.4-10.2); Carbon Dioxide 24 mmol/L (22-30); Chloride 106 mmol/L (98-107); Estimated Glomerular Filt Rate > 60; Glucose 87 mg/dL (65-105); Lipase 366 U/L (23-300); Potassium 3.6 mmol/L (3.4-5.0); Sodium 135 mmol/L (137-145)
[2020-05-13 12:10] LABS: Blood Urea Nitrogen < 2 mg/dL (7-17)
[2020-05-13 12:11] LABS: Hemoglobin A1C 5.7 % (<5.7)
[2020-05-13 13:42] VITALS: BP 102/64; PULSE 94; RESP 16; TEMP 36.9
[2020-05-13] MEDS: ONDANSETRON INJ 4 MG/2 ML VIAL IV PUSH ×2 (13:43→19:43)
[2020-05-13 13:55] VITALS: BMI 25.7
--- NOTE | 2020-05-13 15:00 | PC.NURSE ---
1221- Pt denies nausea at present and was given the Magnesium Citrate with instructions to sip slowly on it and finish within the next 30 mins. 1342- When I went to check if pt had had any results yet, pt states she became nauseated and couldn't drink it. States, It didn't work for me last time anyway. 1343- Zofran given. 1400- Nausea improving. Requested pt start sipping on Magnesium Citrate again. 1445- Pt states she fell asleep and hasn't drank any more. Nausea resolved. Requested pt drink the Magnesium Citrate. 1500- When I checked on pt, states it started making her feel nauseated and refuses to drink any more.
--- NOTE | 2020-05-13 15:10 | PC.NURSE ---
Dr. aBrth informed of pt's inability/ refusal to drink Citrate of Magnesia. Informed of lab results. Orders received.
[2020-05-13] MEDS: BISACODYL 10 MG SUPPOSITORY RECTAL (15:27)
--- NOTE | 2020-05-13 15:27 | PC.NURSE ---
No stool palpated in rectum when Dulcolax suppository was given.
--- NOTE | 2020-05-13 16:57 | PC.NURSE ---
Pt states she felt like she needed to use the bathroom for a BM, but when she went in there nothing came out. Denies voiding again. Pt only ate a small piece of the bread from her grilled cheese sandwich and became nauseated again.
[2020-05-13 17:28] VITALS: BP 96/57; PULSE 86; RESP 16; TEMP 36.9
[2020-05-13] MEDS: DEXTROSE 5%/LACTATED RINGERS 1,000 ML 125 ML IV CONT (17:33)
--- NOTE | 2020-05-13 17:35 | PC.NURSE ---
Pt up to bathroom to try to have BM.
--- NOTE | 2020-05-13 17:44 | PC.NURSE ---
Pt only passed mucous when up to bathroom. Pt states she passes gas. Bowel sounds active in all 4 quadrants.
--- NOTE | 2020-05-13 17:49 | PC.NURSE ---
Up to ambulate.
[2020-05-13 19:47] VITALS: BP 98/49; PULSE 81
[2020-05-13 22:30] VITALS: TEMP 36.6
--- NOTE | 2020-05-13 22:57 | PC.NURSE ---
pt states that she is having stomach cramping and lower back pain rating it 8/10 on pain scale. pt currently back in bed laying on heating pad. pt also states that she has pain in her anal area rating it 10/10 on pain scale. she states that she doesn't feel like she has to use the bathroom though.
--- NOTE | 2020-05-13 23:46 | PC.NURSE ---
pt resting quietly in bed with heating pad on back.
[2020-05-14] MEDS: DEXTROSE 5%/LACTATED RINGERS 1,000 ML 125 ML IV CONT ×3 (01:43→17:32)
--- NOTE | 2020-05-14 01:44 | PC.NURSE ---
pt currently sleeping.
[2020-05-14 02:55] VITALS: BP 90/49; PULSE 86; TEMP 36.6
--- NOTE | 2020-05-14 02:57 | PC.NURSE ---
pt sleeping- vitals taken- pt comfortable and no current c/o nausea or vomiting.
--- NOTE | 2020-05-14 04:56 | PC.NURSE ---
Addendum entered by Shnate Marin RN 05/14/20 04:59: throat slightly red, no swelling noted. Original Note: bowel sounds in all four quadrants, pt c/o sore throat since waking up. ice chips offered and accepted by pt. pt still unable to urinate and unwilling to try.will continue to monitor and continue with plan of care.
[2020-05-14] MEDS: LACTATED RINGERS 1,000 ML 999 ML IV CONT (08:20)
[2020-05-14] MEDS: ONDANSETRON INJ 4 MG/2 ML VIAL IV PUSH ×2 (08:24→19:34)
[2020-05-14 08:26] VITALS: BP 96/51; PULSE 87; TEMP 37.1
--- NOTE | 2020-05-14 08:26 | PM.OBPNVD ---
OB - PN: Subj Subjective Date/time seen: 05/14/20 08:26 reports continued nausea vomiting this morning, OB - PN: Obj Data Labs CBC & Chem 7: 05/12/20 23:06 05/13/20 11:27 Labs: Laboratory Results - last 24 hr 05/13/20 05/13/20 11:27 11:35 Sodium 135 L Potassium 3.6 Chloride 106 Carbon Dioxide 24 Anion Gap 5 L BUN < 2 L Creatinine 0.50 L Estim Creat Clear Calc Not Reportable Estimated GFR > 60 Glucose 87 Hemoglobin A1c 5.7 Calcium 8.4 Total Bilirubin 0.3 AST 21 ALT 25 Alkaline Phosphatase 59 Total Protein 7.0 Albumin 3.1 L Lipase 366 H OB - PN A/P Assessment and Plan (1) Second trimester : Code(s): Z34.92 - Encounter for supervision of normal , unspecified, second trimester Status: Acute (2) Hyperemesis: Code(s): R11.10 - Vomiting, unspecified Status: Acute Assessment and Plan: continue IV fluids, supportive care, antiemetics, observation, serial labs. Time Spent With Patient Time: Total time spent is greater than 50% in coordination of care (as documented) at patient's floor/unit and/or counseling patient: Exam Const: General: comfortable, no acute distress and alert Resp: Effort & Inspection: normal respiratory effort Auscultation: no crackles, no rales and no rhonchi Cardio: Rate: regular rate Heart sounds: no click, no murmurs and no rubs GI: Inspection: non-distended GI Palp: No Tenderness to palpation present (GI) Auscultation: normal bowel sounds Other: Incision - CDI Extrem: General: normal to inspection, no pedal edema and no calf tenderness
[2020-05-14 12:16] VITALS: BP 90/48; PULSE 87; TEMP 36.5
[2020-05-14 16:39] VITALS: BP 96/52; PULSE 92; TEMP 36.6
--- NOTE | 2020-05-14 22:27 | PC.NURSE ---
Addendum entered by Jesusita Giron RN 05/14/20 22:28: 1930- patient up to bathroom, reports feelings of nausea at this time. see MAR. patient denies other needs. K-Pad in place. Original Note: 2029- patient up to bathroom, reports feelings of nausea at this time. see mar. patient denies other needs. K-Pad in place.
[2020-05-15] MEDS: DEXTROSE 5%/LACTATED RINGERS 1,000 ML 125 ML IV CONT ×2 (01:08→08:27)
--- NOTE | 2020-05-15 07:52 | PM.OBPNVD ---
OB - PN: Subj Subjective Date/time seen: 05/15/20 07:52 pt states unable to keep anything down , getting IV fluids. No pain or other concerns OB - PN: Obj Data Labs CBC & Chem 7: 05/12/20 23:06 05/13/20 11:27 OB - PN A/P Plan Comments: 1. hyperemesis 1. plan PIC line 2. scopalamine patch 3. TIgan discussed with Dr. Barth Time Spent With Patient Time: Total time spent is greater than 50% in coordination of care (as documented) at patient's floor/unit and/or counseling patient: Review of Systems Review of Systems: All systems reviewed & are unremarkable except as noted in HPI and below Exam Const: General: comfortable Psych: Appearance: grossly normal Affect: normal affect
[2020-05-15 08:00] VITALS: RESP 20; TEMP 36.9; O2SAT 100
[2020-05-15 08:18] VITALS: BP 100/61; PULSE 83
[2020-05-15] MEDS: ONDANSETRON INJ 4 MG/2 ML VIAL IV PUSH (08:26)
[2020-05-15] MEDS: ENOXAPARIN 30 MG/0.3 ML SYRINGE SUB-Q (09:25)
--- NOTE | 2020-06-03 20:02 | P.DS_ITS ---
DS: Admitting Diagnosis Admitting Diagnosis Admitting Diagnosis: hyperemesis DS: Discharge Diagnosis Discharge Diagnosis (1) Constipation: Code(s): K59.00 - Constipation, unspecified Status: Acute (2) Hyperemesis: Code(s): R11.10 - Vomiting, unspecified Status: Acute DS: Summary Hospital Course Reason for hospitalization: hyperemesis and constipation Hospital Course: this patient is a 1st trimester ball tip with severe hyperemesis constipation. She was admitted and observed we deliver for several days. We had modest success is managing her hyperemesis and constipation. Ultimately she became satisfactory for discharge. Status at Discharge Functional status at discharge: independent ambulation Time Spent with Patient Time attestation: Total time spent providing and/or coordinating discharge services: Time spent: Less than 30 minutes Discharge Plan Discharge Consulting providers: Jolie Artis Discharging Clinician: Toya Barth Patient Disposition: Home, Self-Care Activity: as tolerated Diet: as tolerated Discharge Instructions: OB ANTEPARTUM DISCHARGE INSTRUCTIONS This information is given to help you properly care for yourself at home after your discharge from the hospital. Follow these instructions until your doctor tells you otherwise. DIET: Small Frequent Feedings Drink at Least Eight 8-Ounce Glasses of Caffeine-Free Beverages Daily [place] As Tolerated Additional Diet Instructions: ACTIVITY: As Tolerated Additional Activity Instructions: RETURN TO LABOR AND DELIVERY IF YOU HAVE: Any Leakage of Fluid More than 4 Contractions in an Hour Vaginal Bleeding Additional Reasons to Return to Labor and Delivery: Contractions may feel like abdominal pain, tightening, cramping, pressure, back ache, or thigh ache. 24 Hour Urine Collection: Continue 24 hour urine collection until at . When collection is completed, return specimen to the [facility]. See handout for 24 hour urine collection. OTHER INSTRUCTIONS: take zofran as presbribed. take miralax daily for constipation. home health will contact you to day for set up zofran pump. If you have any question, call OB doctor. FOLLOW-UP CARE: Keep Next Scheduled Appointment To see in/on Valuables released to patient or family? N/A Medications from home returned to patient? N/A I Acknowledge Receipt of and Understand the Above Instructions IF YOU HAVE ANY QUESTIONS REGARDING THESE INSTRUCTIONS, PLEASE CALL [phone]. IF PROBLEMS ARISE, CALL YOUR PROVIDER. IF EMERGENCY CARE IS NEEDED, [facility] EMERG[facility]Y ROOM IS AVAILABLE 24 HOURS A DAY. Patient Instructions: Antibiotic Form Stand Alone Forms: General Discharge Information Follow-up/Referrals: Toya Barth MD [Physician] - Discharge Medications: Continued nitrofurantoin monohyd/m-cryst 100 mg capsule 100 mg PO DAILY RF: 0 ondansetron 4 mg tablet,disintegrating 4 mg PO Q8H Qty: 30 RF: 4 Date of admission: 05/14/20 16:12 Primary Care Provider: Gera,Marky Angel Admitting Provider: Toya Barth Attending physician on admission: Toya Barth
== END 2020-05-15 11:55 | disposition home or self-care (01) | DRG 833 ==
PROVIDERS: Admitting Provider Obstetrics & Gynecology; PCP Internal Medicine; Visit Provider Obstetrics & Gynecology
DX: O21.0 Mild hyperemesis gravidarum (principal); O99.612 Diseases of the digestive system complicating pregnancy, second trimester; K59.09 Other constipation; Z3A.15 15 weeks gestation of pregnancy
CPT/HCPCS: 36415; 80053; 81001; 83036; 83690; 85025; 87086; 87088; A9270; J1650; J2405; J7120; J7121

== ENCOUNTER 2020-10-22 17:06 | Inpatient (IN) | payer MEDICAID, SELFPAY ==
[2020-10-22] VITALS (8 sets, daily range): BP systolic 106–129; BP diastolic 59–83; PULSE 85–108; TEMP 36.6–37; BMI 30.8
--- OUTSIDE RECORDS SUMMARY | 2020-10-22 17:14 | XMS_ITS ---
:1995 Author Care Team Providers Name Role Phone AUREA ASH MD Primary Care Provider [phone] Allergies Code Code System Name Reaction Severity Status Onset NKDA ? Medications Name Status Start Date Stop Date ? ? acetaminophen 300 mg-codeine 30 mg Completed ? 05/02/2019 tablet amoxicillin 500 mg capsule Completed ? 05/02 amoxicillin 500 mg-potassium Completed ? clavulanate 125 mg tablet amoxicillin 875 mg-potassium Completed ? clavulanate 125 mg tablet azithromycin 500 mg tablet Completed ? 05/02 ceftriaxone 250 mg solution for Active ? Not available injection cephalexin 500 mg capsule Completed ? 2018 ciprofloxacin 500 mg tablet Completed ? 04/17 clindamycin HCl 300 mg capsule Completed ? 0 05/02/2019 fluconazole 150 mg tablet Active ? Not av ailable ibuprofen 600 mg tablet Completed ? 05/02/20 FE 09/05 (28) 1 mg-20 mcg (21)/75 Active ? Not available mg (7) tablet medroxyprogesterone 150 mg/mL Active ? No t available intramuscular syringe metronidazole 500 mg tablet Completed ? 04/17 nitrofurantoin Completed ? 05/02/2019 monohydrate/macrocrystals 100 mg capsule promethazine 25 mg tablet Completed ? 2018 sulfamethoxazole 400 mg-trimethoprim 80 Completed ? 05/02/2019 mg tablet valac
--- OUTSIDE RECORDS SUMMARY | 2020-10-22 17:14 | XMS_ITS ---
:1995 Author Care Team Providers Name Role Phone Boss Primary Care Provider Unavailable Allergies Code Code System Name Reaction Severity Status Onset 17479 RxNorm Percocet Rash ? Active ? Medications Name Status Start Date Stop Date ? ? gabapentin 100 mg capsule Active ? Not av ailable Take 1 capsule 3 times a day by oral route. Keflex 500 mg capsule Completed ? 10/06/2018 Take 1 capsule every 6 hours by oral route. Active ? Not available Tamiflu 75 mg capsule Active ? Not availa ble Take 1 capsule every day by oral route for 10 days. Tubersol 5 tub. unit/0.1 mL intradermal injection solution Compl eted ? 10/06/2018 Inject 0.1 mL by intradermal route. Zithromax Z-Doroteo 250 mg tablet Completed ? TAKE 2 TABLETS (500 MG) BY ORAL ROUTE O NCE DAILY FOR 1 DAY THEN 1 TABLET (250 MG) BY ORAL ROUTE ONCE DAILY FOR 4 DAYS Problems Name Status Onset Date Source ? Vasovagal Syncope Active 10/06/2018 ? Pseudomembranous Enterocolitis Active ? H istory Migraine Active ? History Cyclical Vomiting Syndrome Active ? Histo ry Procedures Date Name Performed by ? ? Tonsillectomy Information not avai labadi Notes: 201107/07/2018 [place], [facility] ([facility] Sched[facility]) [address], [place] [address] [phone]
[2020-10-22] MEDS: LACTATED RINGERS 1,000 ML 125 ML IV CONT (18:39)
[2020-10-22] MEDS: AMPICILLIN 2 GM/NS 100 ML 2 GM/100 ML BAG IVPB (18:39)
[2020-10-22] MEDS: DINOPROSTONE 10 MG VAG INSERT VAGINAL (18:42)
--- NOTE | 2020-10-22 18:59 | LDADM ---
This patient, Vicki Villafuerte, was admitted to Labor/Delivery/Recovery 109 on 10/22/20 at 17:06. Plans for labor, pain management and were discussed with patient. Patient/family oriented to hospital policies and general routines including ID bracelet, bed and alarms, visiting hours, pain management, procedures, bathroom and other care routines, personal items, smoking policy, room service/diet and guest tray routines, infant security routines, and visiting hours. Patient/Family are encouraged to report perceived risks to care and to ask questions if they do not understand what they are told or what they should do. See OBIX for further documentation.
[2020-10-22 19:18] LABS: Basophils Percent Auto 0.1 % (0.2-1.2); Eosinophils Absolute Auto 0.1 K/mm3 (0-0.3); Eosinophils Percent Auto 1.2 % (0-4.4); Hematocrit 26.9 % (37.0-47.0); Hemoglobin 8.3 g/dL (12.0-15.0); Immature Granulocyte Absolute 0.11 K/mm3 (0.00-0.031); Immature Granulocyte Percent A 1.1 % (0-0.5); Lymphocytes Absolute Auto 1.96 K/mm3 (0.9-3.2); Lymphocytes Percent Auto 19.7 % (18.3-44.2); Mean Corpuscular HGB Conc 30.9 g/dl (32-36); Mean Corpuscular Hemoglobin 21.3 pg (26-34); Mean Corpuscular Volume 69.2 fl (80-100); Monocytes Absolute Auto 0.7 K/mm3 (0.1-0.6); Monocytes Percent Auto 6.7 % (2.6-8.5); Neutrophils Absolute Auto 7.1 K/mm3 (1.3-6.7); Neutrophils Percent Auto 71.2 % (45.5-73.1); Nucleated Red Blood Cells Perc 0.3 % (0.0-0.2); Platelet Count Result 351 k/mm3 (150-375); Red Blood Count 3.89 M/mm3 (4.2-5.4); Red Cell Distribution Width 16.9 % (11.5-14.5)
[2020-10-22 19:42] LABS: Amphetamine Screen Urine Negative (Negative); Barbiturate Screen Urine Negative (Negative); Benzodiazepines Screen Urine Negative (Negative); Cannabinoid Screen Urine Negative (Negative); Cocaine Screen Urine Negative (Negative); Methadone Screen Urine Negative (Negative); Opiate Screen Urine Negative (Negative); Phencyclidine Screen Urine Negative (Negative)
[2020-10-22 20:18] LABS: HIV 1/2 Ab P24 Ag Result Negative (Negative)
[2020-10-22 21:19] LABS: Rubella IgG Antibody > 120.0 IU/ML
[2020-10-22] MEDS: AMPICILLIN 1 GM/NS 50 ML 1 GM/50 ML BAG IVPB (22:46)
[2020-10-23] VITALS (69 sets, daily range): BP systolic 92–134; BP diastolic 53–88; PULSE 68–126; RESP 16; TEMP 36.7–37.7; O2SAT 97–100
[2020-10-23] MEDS: AMPICILLIN 1 GM/NS 50 ML 1 GM/50 ML BAG IVPB ×3 (02:12→11:08)
[2020-10-23] MEDS: fentaNYL CITRATE INJ (*CRX) 100 MCG/2 ML VIAL 50 MCG IV PUSH ×4 (02:31→09:13)
--- NOTE | 2020-10-23 08:19 | P.HP_ITS ---
Obstetrics - Admit Note Admission Note: 25 y/o here for elective induction of labor.Pt was initially seen in our office but did transfer to [facility]. Transferred back last week. record reviewed. No pertinent additions to the history and/or any subsequent changes in the physical findings that are not consistent with the expected course of the were found. Additions to the history and/or subsequent changes in the physical findings follow. None.
--- NOTE | 2020-10-23 08:20 | PM.OBPNLAB ---
Pain Control Date/time seen: 10/23/20 08:20 VSS Contractions regular FHR category 1 Cervix /-2 AROM scant amount of clear odorless fluid.
[2020-10-23] MEDS: LACTATED RINGERS 1,000 ML 125 ML IV CONT (09:13)
--- NOTE | 2020-10-23 09:40 | WPDANESEPPF ---
Anes - Initial Pre Proc Eval Procedure: labor epidural Date/Time: 10/23/20 09:40 Surgeon: Toya Barth MD Pre Op Diagnosis: labor pain Pre Op Diagnosis: Induction of Labor Patient Data Age: 25 Gender: F Height: 5 ft 8 in Weight: 92 kg Last Vital Signs Temp 37.5 C 10/23/20 06:04 Pulse 89 10/23/20 09:37 BP 111/68 10/23/20 09:37 Pulse Ox 97 10/23/20 09:36 Allergies Allergy/AdvReac Type Severity Reaction Status Date / Time oxycodone [From Percocet] Allergy Rash Verified 03/13/20 17:05 Home Medications Medication Instructions Recorded Confirmed Type valacyclovir 500 mg PO DAILY 10/22/20 10/22/20 History Laboratory Tests 10/22/20 10/22/20 10/22/20 17:52 17:52 17:52 WBC 10.0 K/mm3 K/mm3 (4.5-10.0) RBC 3.89 M/mm3 L M/mm3 (4.2-5.4) Hgb 8.3 g/dL L g/dL (12.0-15.0) Hct 26.9 % L % (37.0-47.0) MCV 69.2 fl L fl (80-100) MCH 21.3 pg L pg (26-34) MCHC 30.9 g/dl L g/dl (32-36) RDW 16.9 % H % (11.5-14.5) Plt Count 351 k/mm3 k/mm3 (150-375) MPV 10.0 fl fl (7.4-10.4) Immature Gran % (Auto) 1.1 % H % (0-0.5) Neut % (Auto) 71.2 % % (45.5-73.1) Lymph % (Auto) 19.7 % % (18.3-44.2) [place] % (Auto) 6.7 % % (2.6-8.5) Eos % (Auto) 1.2 % % (0-4.4) Baso % (Auto) 0.1 % L % (0.2-1.2) Lymph # (Auto) 1.96 K/mm3 K/mm3 (0.9-3.2) [place] # (Auto) 0.7 K/mm3 H K/mm3 (0.1-0.6) Eos # (Auto) 0.1 K/mm3 K/mm3 (0-0.3) Baso # (Auto) 0.0 K/mm3 K/mm3 (0.0-0.1) Abs Immat Gran (auto) 0.11 K/mm3 H K/mm3 (0.00-0.031) Absolute Neuts (auto) 7.1 K/mm3 H K/mm3 (1.3-6.7) Absolute Nucleated RBC 0.0 K/mm3 K/mm3 (0.0-0.012) Nucleated RBC % 0.3 % H % (0.0-0.2) Urine Opiates Screen Urine Methadone Screen Ur Barbiturates Screen Ur Phencyclidine Scrn Ur Amphetamine Screen U Benzodiazepines Scrn Urine Cocaine Screen U Cannabinoids Screen RPR Pending HIV 1&2 Ab/P24 Ag 4thGn Negative (Negative) Rubella IgG Antibody Blood Type Antibody Screen 10/22/20 10/22/20 10/22/20 17:52 17:52 17:52 WBC RBC Hgb Hct MCV MCH MCHC RDW Plt Count MPV Immature Gran % (Auto) Neut % (Auto) Lymph % (Auto) [place] % (Auto) Eos % (Auto) Baso % (Auto) Lymph # (Auto) [place] # (Auto) Eos # (Auto) Baso # (Auto) Abs Immat Gran (auto) Absolute Neuts (auto) Absolute Nucleated RBC Nucleated RBC % Urine Opiates Screen Negative (Negative) Urine Methadone Screen Negative (Negative) Ur Barbiturates Screen Negative (Negative) Ur Phencyclidine Scrn Negative (Negative) Ur Amphetamine Screen Negative (Negative) U Benzodiazepines Scrn Negative (Negative) Urine Cocaine Screen Negative (Negative) U Cannabinoids Screen Negative (Negative) RPR HIV 1&2 Ab/P24 Ag 4thGn Rubella IgG Antibody > 120.0 IU/ML IU/ML (10 - ) Blood Type O Positive Antibody Screen Negative : gestational age (malini 10/28/20, ) Patient hx anesthesia problems: none Family hx anesthesia problems: none PMFSH Past Medical History Medical History (Updated 05/09/20 @ 00:00 by Background Daemon) Arm fracture, left Colitis Herpes Miscarriage UTI (urinary tract infection) Surgical History Surgical History (Reviewed 05/03
[2020-10-23 10:19] LABS: Rapid Plasma Reagin Non-Reactive (NonReactive)
[2020-10-23] MEDS: SODIUM CHLORIDE 0.9% IV 300 ML 600 ML I-UTERINE (12:22)
[2020-10-23] MEDS: SODIUM CHLORIDE 0.9% IV 1,000 ML 150 ML I-UTERINE (12:40)
[2020-10-23] MEDS: OXYTOCIN 30 UNITS/NS 500 ML 30 UNITS/500 ML BAG IV CONT (13:35)
--- NOTE | 2020-10-23 14:14 | P.PCNOB_ITS ---
OB - Delivery Note Procedure Delivery date: 10/23/20 Intrapartal events: Extended Bradycardia Induction method: per pitocin protocol Delivery monitor: external FHT, external uterine, internal FHT and internal uterine Route of delivery: Episiotomy description: None Laceration Description: None Quantitative Blood Loss (ml): 226 Anesthesia type: Epidural Baby Date of : 10/23/20 Time of : 13:58 Weeks of gestation at delivery: 39 Infant gender: Male Weight (pounds): 8 Weight (ounces): 9 presentation: vertex position: Left Occiput Anterior Placenta delivery description: Spontaneous cord vessel description: Nuchal Cord, Loose and Reduced score one minute: 4 score five minutes: 8 Narrative: FHR decelerations prior to delivery. Improved with move to knee chest position. Dr Barth in the room when I arrived. Pt pushed in knee chest and then moved to sf position. FHR decelerations continued with return above the 90's- 120's in between contractions. Dr Barth at desk watching strip. After delivery of head the delivery of body was difficult. Shoulder was not stuck just slow delivery of body. Infant placed on abdomen. Cord clamped and infant handed off to nursery staff.
[2020-10-23] MEDS: BENZOCAINE 20% AER SPR (*SP) 56 GM CAN 1 SPRAY TOPICAL (16:11)
[2020-10-23] MEDS: WITCH HAZEL 40 PADS 1 PAD TOPICAL (16:11)
[2020-10-23] MEDS: POLYSACCHARIDE IRON COMPLEX 150 MG CAPSULE PO (17:27)
[2020-10-23] MEDS: IBUPROFEN 600 MG TABLET PO ×2 (17:27→23:10)
[2020-10-24 05:24] LABS: Hematocrit 24.8 % (37.0-47.0); Hemoglobin 7.7 g/dL (12.0-15.0)
--- NOTE | 2020-10-24 07:00 | PC.NURSE ---
PT introductions made and plan of care discussed per post , pain management, breast feeding, daily care activities. PT verbalized understanding of such care.
--- NOTE | 2020-10-24 07:33 | WPDANLDPN2 ---
Anes-Prog Note L&D Date/Time: 10/24/20 07:33 Comfortable throughout: labor and delivery Neuraxial method: epidural Epidural/Spinal procedure site: clean & non-tender Neuro status: Neuro function grossly intact. Cardiovascular status: normal Respiratory status: normal Airway patency: baseline Mental status: baseline Post-Op hydration status: normal Vital Signs: Last Vital Signs Temp 36.7 C 10/23/20 23:00 Pulse 78 10/23/20 23:00 Resp 16 10/23/20 23:00 BP 112/67 10/23/20 23:00 Pulse Ox 100 10/23/20 16:40 Pain score (VAS): 08/26 I/O: Intake & Output 10/23/20 10/23/20 10/24/20 15:59 23:59 07:59 Intake Total 50 Output Total 30 Balance 50 -30 Post-procedural complaints: none Patient feedback: Patient satisfied with anesthetic care.
--- NOTE | 2020-10-24 07:38 | PM.OBPNVD ---
OB - PN: Subj Subjective Date/time seen: 10/24/20 07:38 Patient comments: no complaints baby status: doing well OB - PN: Obj Data Labs CBC & Chem 7: 10/24/20 05:15 Labs: Laboratory Results - last 24 hr 10/22/20 10/24/20 17:52 05:15 Hgb 7.7 L Hct 24.8 L RPR Non-reactive OB - PN A/P Plan day: 1 Plan: routine care Time Spent With Patient Time: Total time spent is greater than 50% in coordination of care (as documented) at patient's floor/unit and/or counseling patient: Review of Systems Review of Systems: All systems reviewed & are unremarkable except as noted in HPI and below Exam Const: General: cooperative Nutritional Appearance: average body habitus Orientation/consciousness: patient oriented x3
--- NOTE | 2020-10-24 07:57 | P.PNOB_ITS ---
Pain Control Date/time seen: 10/24/20 07:57 Pt states she has taken [place] before with no adverse reaction.
--- NOTE | 2020-10-24 07:57 | PM.OBPNLAB ---
Pain Control Date/time seen: 10/24/20 07:57 Pt states she has taken [place] before with no adverse reaction.
[2020-10-24 08:30] VITALS: BP 114/55; PULSE 87; RESP 18; TEMP 37.2; O2SAT 100
--- NOTE | 2020-10-24 08:35 | PC.NURSE ---
Mother called out for assist with feeding. Consulted with patient, reports has fed inconsistently. Mother has nipple discomfort with latch during most of the feeding. Mother has supplemented and initiated pumping. Mother states she wishes to breastfeed. Reviewed feeding cues, frequencies, duration of feedings, feeding elimination flow sheet, and signs of adequate intake. Demonstrated stimulation techniques to wake for feeding. Assisted with infant to breast. Reviewed positioning/alignment in cross cradle, holding breast in U hold and guided asymmetrical latch on. Infant was able to latch correctly within a few attempts. Infant nursed eagerly, with steady draws and frequent swallowing noted. Reviewed signs of a correct latch, effective nursing and suck swallow ratio. Infant was able to maintain latch. Mother reported tenderness at times, had slipped to shallow latch. Demonstrated how to adjust latch more deeply while feeding. Mother quickly reports she can feel infant is latched more deeply and has minimal tenderness. Suggested to stimulate while feeding to keep awake and nursing effectively for increased stimulation and increased intake. Instructed mother to call out for RN assistance if she is unable to latch for feeding or she has discomfort with nursing. Instructed feeding should be initiated three hours from start of last feeding or if feeding cues are noted before. Mother voiced understanding of information shared.
--- NOTE | 2020-10-24 09:45 | PC.NURSE ---
Pt introductions made and plan of care discussed per post , pain management, breast feeding daily, care activities. Pt verbalized understanding of such care.
[2020-10-24 10:00] VITALS: PULSE 65; RESP 16; O2SAT 100
[2020-10-24] MEDS: POLYSACCHARIDE IRON COMPLEX 150 MG CAPSULE PO ×2 (10:09→16:59)
[2020-10-24] MEDS: DOCUSATE SODIUM 100 MG CAPSULE PO ×2 (10:09→16:58)
[2020-10-24] MEDS: MULTIVIT/MIN/PREN/FOL AC/IRON TABLET 1 TAB PO (10:10)
[2020-10-24] MEDS: HYDROcodone/acetaminophen (*CRX) 5-325 MG TABLET 1 TAB PO ×3 (10:10→23:35)
[2020-10-24] MEDS: IBUPROFEN 600 MG TABLET PO ×3 (10:11→23:35)
--- NOTE | 2020-10-24 11:30 | PC.NURSE ---
PT and in open crib walked accompanied by staff to room 110 to see family from the window.
--- NOTE | 2020-10-24 11:40 | PC.NURSE ---
Mother called out for assist with feeding. Demonstrated stimulation techniques to wake for feeding. Assisted with infant to breast. Reviewed positioning/alignment in cross cradle, holding breast in U hold and guided asymmetrical latch on. Infant was able to latch correctly after several attempts. Infant on and off at first before settling with steady draws and frequent occasional swallowing noted. Reviewed signs of a correct latch, effective nursing and suck swallow ratio. Infant was able to maintain latch. Mother reported tenderness at times, infant had slipped to shallow latch. Demonstrated how to adjust latch more deeply while feeding. Mother quickly reports she can feel infant is latched more deeply and has minimal tenderness. Suggested to stimulate while feeding to keep awake and nursing effectively for increased stimulation and increased intake. Suggested FOB assist with keeping infant awake and nursing. Instructed mother to call out for RN assistance if she is unable to latch for feeding or she has discomfort with nursing. Instructed feeding should be initiated three hours from start of last feeding or if feeding cues are noted before. Mother voiced understanding of information shared.
[2020-10-24 11:50] VITALS: BP 113/73; PULSE 65; RESP 16; TEMP 36.7; O2SAT 100
[2020-10-24 12:00] VITALS: PULSE 65; RESP 16; O2SAT 100
[2020-10-24 20:40] VITALS: BP 111/64; PULSE 84; RESP 16; TEMP 36.8
--- NOTE | 2020-10-25 07:30 | PC.NURSE ---
PT introductions made and plan of care discussed per post , pain management, breast feeding, daily care activities and pending discharge to home. PT verbalized understanding of such care.
--- NOTE | 2020-10-25 07:46 | PM.OBPNVD ---
OB - PN: Subj Subjective Date/time seen: 10/25/20 07:46 Patient comments: no complaints baby status: doing well OB - PN: Obj Data Labs CBC & Chem 7: 10/24/20 05:15 OB - PN A/P Plan day: 2 Plan: routine care and discharge home (F/U in 4 weeks) Time Spent With Patient Time: Total time spent is greater than 50% in coordination of care (as documented) at patient's floor/unit and/or counseling patient: Time with patient: less than 15 minutes Review of Systems Review of Systems: All systems reviewed & are unremarkable except as noted in HPI and below Exam Narrative: Exam Narrative: Fundus firm and vaginal flow controlled. No lower ext redness, warmth, or edema. Negative homans. Const: General: comfortable Chest: Breast/axilla inspection: normal inspection of the breasts Resp: Effort & Inspection: normal respiratory effort Cardio: Rate: regular rate GI: GI Palp: Yes Soft to palpation Psych: Appearance: grossly normal Affect: normal affect Attitude: cooperative Thought content: Yes Normal thought content present Judgement: Good judgement present (Psych)
[2020-10-25 09:40] VITALS: BP 115/43; PULSE 74; RESP 18; TEMP 36.6; O2SAT 98
[2020-10-25] MEDS: IBUPROFEN 600 MG TABLET PO (09:45)
[2020-10-25] MEDS: HYDROcodone/acetaminophen (*CRX) 5-325 MG TABLET 1 TAB PO (09:46)
[2020-10-25] MEDS: DOCUSATE SODIUM 100 MG CAPSULE PO (09:46)
[2020-10-25] MEDS: MULTIVIT/MIN/PREN/FOL AC/IRON TABLET 1 TAB PO (09:46)
[2020-10-25] MEDS: POLYSACCHARIDE IRON COMPLEX 150 MG CAPSULE PO (09:46)
--- NOTE | 2020-10-25 11:00 | PC.NURSE ---
Consulted mother reports she bottle fed during the night. Mother reports she wishes to exclusively breastfeed. Discussed putting to breast each feeding then supplement if infant does not appear to be satisfied. Mother reports she has difficulties with latching infant. Mother has a pump at bedside and has not pumped as suggested when is bottle fed. Discussed stimulation for stimulation of milk supply. Reviewed feeding cues, frequencies, duration of feedings, feeding elimination flow sheet, and signs of adequate intake. Demonstrated stimulation techniques to wake for feeding. Assisted with to breast. Reviewed positioning/alignment in cross cradle, holding breast in U hold and guided asymmetrical latch on. was able to latch correctly within a few attempts. nursed eagerly, with steady draws and frequent swallowing noted. Reviewed signs of a correct latch, effective nursing and suck swallow ratio. was able to maintain latch. Mother reported tenderness at times, had slipped to shallow latch. Demonstrated how to adjust latch more deeply while feeding. Mother quickly reports she can feel infant is latched more deeply and has minimal tenderness. Suggested to stimulate while feeding to keep infant awake and nursing effectively for increased stimulation and increased intake. Instructed mother to call out for RN assistance if she is unable to latch infant for feeding or she has discomfort with nursing. Mother is feeding as required and waking infant to feed if needed. is currently meeting outcomes for weight, output, jaundice and feeding frequencies. Mother states she feels confident to continue current feeding plan at home, satting her mother will be there to assist with breast feeding. Reviewed transition to breast milk, signs of adequate intake, and engorgement/relief. Instructed to call ICP if intake/output less than required. Reviewed regular medications mother is taking. Information provided per Yelena. Reviewed community resources on the [facility] website and in the Mom/Baby guide. Information on outpatient services provided. Mother has no further questions at this time.
--- NOTE | 2020-11-12 08:25 | PM.OBDSVD ---
DS: Admitting Diagnosis Admitting Diagnosis Admitting Diagnosis: Induction DS: Discharge Diagnosis Discharge Diagnosis (1) Vaginal delivery: Code(s): O80 - Encounter for full-term uncomplicated delivery Status: Acute OB - DS: Summary OB Procedures : None OB Procedures Intrapartum: Spontaneous Vag Delivery OB Procedures: : None Time Spent with Patient Time attestation: Total time spent providing and/or coordinating discharge services: Discharge Plan Discharge Attending physician on discharge: Rosamaria Wagner Consulting providers: Rosamaria Wagner ; Jolie Artis Discharging Clinician: Rosamaria Wagner Patient Disposition: Home, Self-Care Activity: pelvic rest Diet: as tolerated Discharge Instructions: Education: Mom and Baby Guide Given to: Mother Follow-Up: Call your delivering provider's office for an appointment to be seen in: 4 Weeks Mom and baby should come to the [facility] for the follow-up appointment. Appointment Date/Time: October 26, 2020 at 10:00 am What to expect at your follow-up visit: Blood Pressure Check Call [phone] if you are unable to keep your appointment time. BREAST CARE: * Wear a snug supportive bra. * For engorgement discomfort: Breast Feeding: * Apply warm moist washcloths * Express milk as needed to relieve engorgement * Wear loose clothing Bottle Feeding: * May apply ice packs * For sore nipples: * Identify correct latch-on * Apply warm moist washcloths before and after nursing * Air dry nipples after nursing * May apply Lansinoh cream to nipples PERINEAL CARE: * Until bleeding stops, use your mehrdad bottle after urinating * Change your pad frequently throughout the day * You may take sitz baths several times a day (fill your bathtub with warm water and soak for 20 minutes.) Do NOT bathe in the water * No tub baths until seen by your physician - You may shower ACTIVITY: * Rest as much as possible. * Do not exercise or lift anything heavier than your baby (such as laundry or other children.) * Avoid stairs or driving as much as possible. * Do not put anything into the vagina. No douching, tampons, or sexual activity until seen by physician. NOTIFY PHYSICIAN IF YOU HAVE ANY QUESTIONS OR IF ANY OF THE FOLLOWING SYMPTOMS OCCUR: * If your incision becomes red, swollen, or more painful than what you have experienced in the hospital. * If your vaginal bleeding becomes foul smelling. * If your vaginal bleeding becomes more heavy than a period or if your bleeding changes from pink to bright red. However, you may pass an occasional walnut-sized clot once or twice for the first week . * If you experience a sharp, shooting pain in you calves. * If you discover a hard, reddened area on your breast or if you experience flu-like symptoms. * If you have a fever of 100.4 or greater DIET: * Eat regular, well-balanced meals. * Drink plenty of fluids daily. If , drink to thirst. Patient Instructions: Antibiotic Form Stand Alone Forms: General Discharge Information Follow-up/Referrals: Rosamaria Wagner CNM [Certified Nurse First Leveler] - Discharge Medications: New polysaccharide iron complex 150 mg iron Capsule 150 mg PO BIDWM Qty: 60 RF: 0 ibuprofen 600 mg Tablet 600 mg PO Q6H PRN (Reason: Cramping) Qty: 20 RF: 0 Continued valacyclovir 500 mg tablet 500 mg PO DAILY RF: 0 Date of admission: 10/22/20 17:06 Primary Care Provider: Gera,Marky Angel Admitting Provider: Toya Barth Attending physician on admission: Toya Barth Condition: Stable
== END 2020-10-25 13:20 | disposition home or self-care (01) | DRG 560 ==
LOC: ANHLDR 10-23 12:47 → ANHOB2 10-23 16:36
PROVIDERS: Advanced Practice Midwife; Admitting Provider Obstetrics & Gynecology; PCP Internal Medicine; Visit Provider Obstetrics & Gynecology
DX: O99.824 Streptococcus B carrier state complicating childbirth (principal); Z37.0 Single live birth; Z3A.39 39 weeks gestation of pregnancy; O36.8330 Maternal care for abnormalities of the fetal heart rate or rhythm, third trimester, not applicable or unspecified; O69.81X0 Labor and delivery complicated by cord around neck, without compression, not applicable or unspecified
CPT/HCPCS: 36415; 80307; 85014; 85018; 85025; 86592; 86703; 86762; 86850; 86900; 86901; A9270; G0432; J0290; J2590; J2795; J3010; J7030; J7120

== ENCOUNTER 2020-10-28 06:26 | Emergency (ER) | payer MEDICAID, SELFPAY ==
--- NOTE | ~2020-10-28 | US_ITS ---
EXAMINATION: US venous doppler [facility] DATE: 10/28/2020 09:18 INDICATION: Lower limb pain and swelling. TECHNIQUE: Grayscale ultrasound images without and with compression and Doppler ultrasound images of the bilateral lower extremity veins were obtained. COMPARISON: Ultrasound 03/16/2019 FINDINGS: The visualized portions of right common femoral vein, profunda (deep) femoral vein, femoral vein, pop liteal vein, peroneal veins, posterior tibial veins, and greater saphenous vein outflow are patent. The visualized portions of left common femoral vein, profunda femoral vein, femoral vein, popliteal v ein, peroneal veins, posterior tibial veins, and greater saphenous vein outflow are patent. IMPRESSION: 1. No deep venous thrombosis. Reviewed, dictated and finalized at location A.
[2020-10-28 06:30] VITALS: BP 134/77; PULSE 100; RESP 20; TEMP 37; O2SAT 100
[2020-10-28 06:50] VITALS: BP 132/86; PULSE 61; RESP 18; O2SAT 100
[2020-10-28 08:08] VITALS: BP 115/77; PULSE 55; RESP 25; O2SAT 100
[2020-10-28 08:36] LABS: Basophils Percent Auto 0.3 % (0.2-1.2); Eosinophils Absolute Auto 0.3 K/mm3 (0-0.3); Eosinophils Percent Auto 3.3 % (0-4.4); Hematocrit 27.7 % (37.0-47.0); Hemoglobin 8.5 g/dL (12.0-15.0); Immature Granulocyte Absolute 0.04 K/mm3 (0.00-0.031); Immature Granulocyte Percent A 0.5 % (0-0.5); Lymphocytes Absolute Auto 2.36 K/mm3 (0.9-3.2); Lymphocytes Percent Auto 30.8 % (18.3-44.2); Mean Corpuscular HGB Conc 30.7 g/dl (32-36); Mean Corpuscular Hemoglobin 21.7 pg (26-34); Mean Corpuscular Volume 70.7 fl (80-100); Mean Platelet Volume 9.3 fl (7.4-10.4); Monocytes Absolute Auto 0.6 K/mm3 (0.1-0.6); Monocytes Percent Auto 7.2 % (2.6-8.5); Neutrophils Absolute Auto 4.4 K/mm3 (1.3-6.7); Neutrophils Percent Auto 57.9 % (45.5-73.1); Platelet Count Result 329 k/mm3 (150-375); Red Blood Count 3.92 M/mm3 (4.2-5.4); Red Cell Distribution Width 18.1 % (11.5-14.5); White Blood Count 7.7 K/mm3 (4.5-10.0)
[2020-10-28 08:50] LABS: Alanine Aminotransferase 20 U/L (4-35); Albumin Level 3.4 g/dL (3.5-5.1); Alkaline Phosphatase 90 U/L (38-126); Anion Gap 5 mmol/L (8-16); Aspartate Amino Transferase 43 U/L (14-36); Bilirubin,Total 0.2 mg/dL (0.2-1.3); Blood Urea Nitrogen 7 mg/dL (7-17); Calcium 7.9 mg/dL (8.4-10.2); Carbon Dioxide 27 mmol/L (22-30); Chloride 108 mmol/L (98-107); Estimated CRCL calculation 113 ml/min; Estimated Glomerular Filt Rate > 60; Glucose 83 mg/dL (65-105); Potassium 3.7 mmol/L (3.4-5.0); Sodium 140 mmol/L (137-145); Uric Acid 5.3 mg/dL (2.5-7.5)
--- NOTE | 2020-10-28 09:53 | ED.EXTPRO ---
HPI - Extremity Problem General Chief complaint: Extremity Problem,Nontraumatic Stated complaint: DVT? Time Seen by Provider: 10/28/20 07:28 Source: patient Mode of arrival: ambulatory Limitations: no limitations History of Present Illness HPI Narrative: 25-year-old 5 para 2 had a normal vaginal delivery on October 26 here with a complaint of bilateral lower extremity pain and swelling. Patient states that it started with the right leg and now the left leg is also swollen. She denies any headache , blurred vision. Patient states that she did not have any problem with high blood pressure during or . She denies any fever or chills. Complaint: extremity swelling Onset (ago): day(s) (1) Pain Consistency: constant Location: lower extremity (Bilateral) Severity scale (1-10): 4 Quality: aching Radiation: none Relieving factors: nothing Exacerbating factors: nothing Associated symptoms: denies other symptoms Related Data Home Medications Medication Instructions Recorded Confirmed valacyclovir 500 mg PO DAILY 10/22/20 10/22/20 Allergies Allergy/AdvReac Type Severity Reaction Status Date / Time oxycodone [From Percocet] Allergy Rash Verified 10/28/20 07:13 Review of Systems Review of Systems: All systems reviewed & are unremarkable except as noted in HPI and below Constitutional: Constitutional: Reports no additional constitutional complaints Eyes: Eyes: Reports no additional eye complaints ENT: Reports system reviewed and no additional complaints, except as documented Cardiovascular: Cardiovascular: Reports no additional cardiovascular complaints Respiratory: Respiratory: Reports no additional respiratory complaints Gastrointestinal: Gastrointestinal: Reports no additional gastrointestinal complaints Genitourinary: Genitourinary: Reports no additional female genitourinary complaints Musculoskeletal: Musculoskeletal: Reports as per HPI Neurologic: Reports system reviewed and no additional complaints, except as documented [facility] Past Medical History Medical History (Updated 10/28/20 @ 09:59 by Jovi Villalpando MD) Arm fracture, left Colitis Herpes Miscarriage UTI (urinary tract infection) Surgical History Surgical History Hx of colonoscopy Hx of tonsillectomy Family History Family History Mother Breast cancer Father Diabetes mellitus Social History Social History Social History: she does not drink, smoke, or do drugs. 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 She would like her mom, Monica Steiner, as her decision maker if she cannot make her own decisions. She would like to be a full code. Smoking status: Never smoker Second hand tobacco smoke exposure: No Substance use: never Other substance usage details: pt denies Gender identity (if verbalized by the patient): Female Spiritual care concerns: No Exam Narrative: Exam Narrative: GENERAL: Well-appearing, well-nourished, and in no acute distress. HEAD: Normocephalic, atraumatic. EYES: PERRLA and EOMI.. NECK: Supple. CHEST: Clear to auscultation. No respiratory distress. HEART: Regular rate and rhythm. No murmur heard. Normal peripheral pulses. ABDOMEN: Soft, nontender, nondistended . EXTREMITIES: Normal range of motion. edema 1+ SKIN: Warm, dry, no rash. NEURO: No focal deficits. Alert and oriented x3. PSYCH: Normal mood and affect. Course Course Emergency Course: Patient comfortably lying on the bed in no discomfort. I discussed the lab, ultrasound findings with the patient, discussed with Dr. Barth at this point patient does not need any treatment can be followed up in the office in the next few days. Vital Signs Vital signs: Vital Signs Temperature 37.0 C 10/28/20 06:30 Pulse Rate 100 10/28/20 06:30 Respiratory Rate 20 10/28/20 06:30
[2020-10-28 10:04] VITALS: BP 140/89; PULSE 53; RESP 17; O2SAT 100
== END 2020-10-28 10:38 | disposition home or self-care (01) ==
PROVIDERS: Emergency Provider Family Medicine; PCP Nurse Practitioner Family
DX: O90.89 Other complications of the puerperium, not elsewhere classified (principal); R60.0 Localized edema; Z87.440 Personal history of urinary (tract) infections
CPT/HCPCS: 36415; 80053; 84550; 85025; 93970; 99284

== ENCOUNTER 2021-08-13 07:31 | Emergency (ER) | payer OTHER, SELFPAY ==
[2021-08-13 07:41] VITALS: BP 106/82; PULSE 92; RESP 16; TEMP 36.5; O2SAT 100
--- NOTE | 2021-08-13 08:03 | ED.GENADULT ---
HPI - General Adult General Chief complaint: Unspecified Stated complaint: exposed to flu, employer wants her tested Time Seen by Provider: 08/13/21 07:43 Source: patient Mode of arrival: ambulatory Limitations: no limitations History of Present Illness HPI narrative: 26 years old -[place] female came to the ED with runny nose, sore throat and chest heaviness started 24 hours ago. 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 Patient referred to our emergency room by her work to test for the flu. Last Covid vaccine was December 2020 Related Data Home Medications Medication Instructions Recorded Confirmed valacyclovir 500 mg PO DAILY 10/22/20 10/22/20 Allergies Allergy/AdvReac Type Severity Reaction Status Date / Time oxycodone [From Percocet] Allergy Rash Verified 10/28/20 07:13 Review of Systems Review of Systems: CONSTITUTIONAL: Denies fever, chills, or sweats. EYES: Denies visual changes, redness, or discharge. ENT: Denies rhinorrhea, congestion, sore throat, or otalgia. CARDIOVASCULAR: Denies chest pain, palpitations, or edema. RESPIRATORY: Denies cough or dyspnea. GASTROINTESTINAL: Denies abdominal pain, nausea, vomiting, or diarrhea. GENITOURINARY: Denies dysuria or hematuria. SKIN: Denies rash or itching. MUSCULOSKELETAL: Denies back pain, joint pain, or myalgia. NEUROLOGIC: Denies headache, numbness, or weakness. PSYCHIATRIC: Denies anxiety or depression. [facility] Past Medical History Medical History (Updated 08/13/21 @ 08:08 by Simran aZrate MD) Arm fracture, left Colitis Herpes Miscarriage UTI (urinary tract infection) Surgical History Surgical History Hx of colonoscopy Hx of tonsillectomy Family History Family History Mother Breast cancer Father Diabetes mellitus Social History Social History Social History: she does not drink, smoke, or do drugs. 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 She would like her mom, Monica Steiner, as her decision maker if she cannot make her own decisions. She would like to be a full code. Smoking status: Never smoker Second hand tobacco smoke exposure: No Substance use: never Other substance usage details: pt denies Gender identity (if verbalized by the patient): Female Spiritual care concerns: No Exam Narrative: General appearance: Well-developed, well-nourished Skin: Normal color Head: Normocephalic, nontraumatic Eyes: Clear conjunctiva ENT: Oropharynx normal, ears normal, nose normal Neck: Supple, nontender Chest and respiratory: Airway patent, no respiratory distress, no accessory muscle use Heart: Regular rate/rhythm Abdomen: Soft, nontender, no organomegaly, quiet bowel sounds Vascular: Normal peripheral pulses, normal capillary refill. Musculoskeletal: Normal range of motion, nontender back Neurologic: Alert and oriented ?3, TALEND DEVELOPER is normal as tested, no gross motor deficit Course Course Emergency Course: Stable Vital Signs Vital signs: Vital Signs Temperature 36.5 C 08/13/21 07:41 Pulse Rate 92 08/13/21 07:41 Respiratory Rate 16 08/13/21 07:41 Blood Pressure 106/82 08/13/21 07:41 Pulse Oximetry 100 08/13/21 07:41 Temperature 36.5 C 08/13/21 07:41 Pulse Rate 92 08/13/21 07:41 Respiratory Rate 16 08/13/21 07:41 Blood Pressure 106/82 08/13/21 07:41 Pulse Oximetry 100 08/13/21 07:41 Medical Decision Making [facility] Narrative Medical decision making narrative: Influenza and Covid test ordered Vital Signs Vital Signs: Vital Signs Temperature 36.5 C
[2021-08-14 03:58] LABS: SARS-CoV-2 RNA PCR Negative
== END 2021-08-13 09:23 | disposition home or self-care (01) ==
LOC: ANHED 08:11
PROVIDERS: Emergency Provider Emergency Medicine; PCP Nurse Practitioner Family
DX: J06.9 Acute upper respiratory infection, unspecified (principal); Z20.822 Contact with and (suspected) exposure to COVID-19
CPT/HCPCS: 87804; 99283; C9803; U0003; U0005

== ENCOUNTER 2021-08-24 16:05 | Emergency (ER) | payer OTHER, SELFPAY ==
--- NOTE | 2021-08-24 16:12 | ED.ABDPAIN ---
HPI - Abdominal Pain General Chief Complaint: Nausea/Vomiting/Diarrhea Stated Complaint: abd pain Time Seen by Provider: 08/24/21 16:28 Source: patient, RN notes reviewed and old records reviewed Mode of arrival: ambulatory Limitations: no limitations History of Present Illness HPI narrative: 26-year-old female presents to the [facility] with complaints of diarrhea that started this morning patient states that her 5-year-old had the same symptoms yesterday and was seen at [facility]. States she try to go to work today and kept having diarrhea her boss sent her home from work. States that she needs a work note stating that she was seen at the [facility] elicited complaint: abdominal pain Related Data Home Medications Medication Instructions Recorded Confirmed valacyclovir 500 mg PO DAILY 10/22/20 10/22/20 Allergies Allergy/AdvReac Type Severity Reaction Status Date / Time oxycodone [From Percocet] Allergy Rash Verified 10/28/20 07:13 Review of Systems Review of Systems: All systems reviewed & are unremarkable except as noted in HPI and below Constitutional: Constitutional: Reports no additional constitutional complaints, Denies chills and Denies fever(s) Eyes: Eyes: Reports no additional eye complaints ENT: Reports system reviewed and no additional complaints, except as documented Cardiovascular: Cardiovascular: Reports no additional cardiovascular complaints and Denies chest pain Respiratory: Respiratory: Reports no additional respiratory complaints, Denies cough and Denies dyspnea Gastrointestinal: Gastrointestinal: Reports as per HPI, Reports abdominal pain (Left lower quadrant cramping when having a bowel movement), Reports diarrhea, Denies nausea and Denies vomiting Genitourinary: Genitourinary: Reports no additional female genitourinary complaints Musculoskeletal: Musculoskeletal: Reports no additional musculoskeletal complaints Integumentary/Breasts: Skin/Breast: Reports system reviewed and no additional complaints, except as docu Neurologic: Reports system reviewed and no additional complaints, except as documented Psychiatric: Psychiatric: Reports no additional psychiatric complaints Allergic/Immunologic: Allergic/Immunologic: Reports no additional allergic/immunologic complaints PMFSH Past Medical History Medical History (Updated 08/24/21 @ 16:38 by Donna Mccartney) Arm fracture, left Colitis Herpes Miscarriage UTI (urinary tract infection) Surgical History Surgical History Hx of colonoscopy Hx of tonsillectomy Family History Family History Mother Breast cancer Father Diabetes mellitus Social History Social History Social History: she does not drink, smoke, or do drugs. 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 She would like her mom, Monica Steiner, as her decision maker if she cannot make her own decisions. She would like to be a full code. Smoking status: Never smoker Second hand tobacco smoke exposure: No Substance use: never Other substance usage details: pt denies Gender identity (if verbalized by the patient): Female Spiritual care concerns: No Comments At the time of my signature, I reviewed and agree with the nursing past medical, surgical, social, and family history. There is no relevant family history pertinent to the patient complaint. Exam Const: General: healthy appearing, no acute distress and alert Nutritional Appearance: well nourished Orientation/consciousness: patient oriented x3 Limitations: no limitations HENMT: Head: normal to inspection Ears: external ears normal Eyes: Pupils: Equal, round and reactive pupils present Neck: Neck: normal visual inspection and no lymphadenopathy Chest: Chest palpation & inspection: normal inspection of the chest Resp: Effort & Inspection: normal respiratory effort and no u
[2021-08-24 16:15] VITALS: BP 126/72; PULSE 95; RESP 16; TEMP 36.3; O2SAT 100
== END 2021-08-24 16:40 | disposition home or self-care (01) ==
PROVIDERS: Emergency Provider Nurse Practitioner
DX: R19.7 Diarrhea, unspecified (principal)
CPT/HCPCS: 99212; G0463

== ENCOUNTER 2021-09-03 00:03 | Day surgery (SDC) | payer OTHER, SELFPAY ==
[2021-08-27 16:08] VITALS: BMI 28.5
--- NOTE | 2021-08-27 16:30 | PC.NURSE ---
Report to the Outpatient Waiting Room, entrance under the green pavilion located off [facility], at time _0600 on date __09/03/21 . OR Time: . - You will be asked a series of questions to screen for COVID 19 for your protection. - A mask is required within the hospital. - Only one visitor is allowed at this time. Patient visitors will be guided where to wait when not with patient. Preoperative COVID Testing Requirements: No COVID Test needed if: (proof is required; if not received patient will have Rapid Test prior to entry) - Patient has received COVID Vaccine at least 14 days prior to procedure date or - Patient has positive COVID test result within last 90 days of surgery date. COVID Test needed if above criteria is not met If not COVID vaccinated a COVID test must be conducted within 72 hours of surgery and patient is asked to isolate self from time of testing until procedure. You will go to the [facility] Testing Site for your COVID testing. The [facility] is located at the corner of [address] [facility]. You will only be called if COVID results are positive and your surgeon may reschedule your elective surgery date. Patients may have clear liquids (water, carbonated beverages, clear teas, apple juice) until 3 hours prior to surgery with a maximum of 20 ounces. - No food from midnight until time of surgery - Infants may have breast milk until 4 hours before surgery, infant formula 6 hours prior to surgery. - Children will be allowed to drink immediately following surgery. If applicable, please bring a bottle or sippy cup to assist with drinking. Juice, water, soda, and popsicles are readily available. For infants on formula, please bring formula the day of surgery. Pacifiers are allowed. Take the following medications with a SIP of water the morning of surgery: ___N/A Medications to discontinue per physician ____N/A Date to take last dose___N/A Please no make-up, nail malay, hairspray, perfume, deodorant, or body powder the day of surgery. No jewelry (including any body piercings) or valuables the day of surgery, leave them at home. Please take a shower or bath the night before, or the morning of, surgery with an antibacterial soap. Wear comfortable, loose fitting clothing. Children are encouraged to wear pajamas. - Jewelry must be removed prior to entering the operating room. Rings and piercings that are not removed may be cut off. - The hospital will not accept responsibility for valuables. - Please leave all valuables, including medications, at home the day of surgery. If you are going home after surgery, a licensed racecar driver must drive you home. - NO public transportation without another adult. - We recommend that an adult stay with you for 24 hours following discharge. - We also recommend that you do not drive, make important decision, drink alcoholic beverages, or take any drugs that were not prescribed by your health care provider for at least 24 hours after your discharge time. For Pediatric surgeries, we recommend two adults accompany the child home (only one inside the building at this time). Follow any additional instructions given to you from your surgeon. Telephone instructions given to __CATARINA and asked if any additional questions and then verbalized understanding. Patient advised to call surgeon office or pre surgery nurse liaison [phone] if any additional questions.
--- NOTE | 2021-09-02 13:43 | WPDANESEPPF ---
Anes - Initial Pre Proc Eval Procedure: Operation Date: 09/03/21 07:30 Proposed Procedures p Bilateral Laparoscopic Salpingectomy - Toya Barth MD Date/Time: 09/02/21 13:43 Surgeon: Toya Barth MD Pre Op Diagnosis: desires sterilization Patient Data Age: 26 Gender: F Height: 1.73 m Weight: 85 kg Allergies Allergy/AdvReac Type Severity Reaction Status Date / Time oxycodone [From Percocet] Allergy Rash Verified 09/03/21 06:23 Patient hx anesthesia problems: none Family hx anesthesia problems: none Results Review: All pre-operative results and documents have been reviewed as part of the pre-operative evaluation. [facility] Past Medical History Medical History (Updated 08/25/21 @ 00:01 by Vishnu Barcenas) Arm fracture, left Colitis Herpes Miscarriage UTI (urinary tract infection) Surgical History Surgical History Hx of colonoscopy Hx of tonsillectomy Family History Family History Mother Breast cancer Father Diabetes mellitus Social History Social History Social History: she does not drink, smoke, or do drugs. 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 She would like her mom, Monica Steiner, as her decision maker if she cannot make her own decisions. She would like to be a full code. Smoking status: Never smoker Second hand tobacco smoke exposure: No Alcohol intake: current Substance use: never Substance use type: does not use Other substance usage details: pt denies Living arrangements: with family Gender identity (if verbalized by the patient): Female Spiritual care concerns: No Anes - Eval Final PreProcedure Day of Procedure 09/02/21 13:43 Patient weight: overweight Heart: regular rate and rhythm Lungs: clear to auscultation and normal air movement Airway: Mallampati scale class II Neurological: alert and oriented Last oral intake: >/= 8 hours ASA classification: II Emergent: no Anesthetic plan: proceed Anesthesia type and monitoring: general ETT Results Review: All pre-operative results and documents have been reviewed as part of the pre-operative evaluation. Informed Consent: The patient's anesthetic plan and its attendant risks and benefits were discussed with the patient/family/POA. Questions were solicited and answers provided to the satisfaction of the patient/family/POA.
[2021-09-03] VITALS (11 sets, daily range): BP systolic 96–115; BP diastolic 63–77; PULSE 64–96; RESP 16–22; TEMP 36.7–37.3; O2SAT 98–100
[2021-09-03] MEDS: ACETAMINOPHEN 500 MG TABLET 1000 MG PO (06:40)
[2021-09-03] MEDS: LACTATED RINGERS 1,000 ML 30 ML IV CONT ×2 (06:50→08:41)
[2021-09-03] MEDS: KETOROLAC 15 MG/ML VIAL (*BKC) IV PUSH (06:51)
--- NOTE | 2021-09-03 07:12 | WPDHPUPDATE1 ---
History and Physical Update Update Date/Time: 09/03/21 07:12 History and Physical has been reviewed, including an updated exam of the patient. There are NO changes in the patient's condition. Risks, benefits, and alternatives have been discussed and questions answered. Patient agrees to proceed with procedure.
--- NOTE | 2021-09-03 08:11 | W.PM.PROC2 ---
Procedure Note - Detailed Date of Procedure 09/03/21 Pre-op Diagnosis desires sterilization Post-op Diagnosis same Procedure Performed Laparoscopic bilateral salpingectomy Surgeon Toya Barth MD Anesthesia general Indications Unwanted fertility Findings Normal pelvic anatomy Description of Procedure The patient was taken the operating room. She was prepped and draped in the dorsal lithotomy position after induction of general anesthesia. A 5 mm skin incision was made in the left upper quadrant of the abdominal skin. A 5 mm trocar was inserted the intra-abdominal cavity under direct visualization of the scope. Pneumoperitoneum was achieved. A 5 mm trocar was inserted in the left lower quadrant identical fashion. A 5 mm infraumbilical trocar was inserted in identical fashion as well. The bilateral fallopian tubes were removed. This was done by using a LigaSure cautery. The mesosalpinx adjacent to the tube was cauterized transected with LigaSure. This was initiated in the area the ovary and in a stepwise fashion moved medially to the area of the cornu of the uterus. Once there the fallopian tube was cauterized and transected. This was done in identical fashion on each side. The fallopian tubes were taken out through the left lower quadrant trocar site. The pneumoperitoneum was reduced. The trocars removed. The skin was closed with subcuticular 4 Monocryl and covered with Dermabond. She was taken to cover stable condition. Sponge lap and needle counts were correct x2. Estimated Blood Loss 5 Drains No Packing No Pathology yes Complications No immediate complications Condition stable Disposition PACU
[2021-09-03] MEDS: ONDANSETRON INJ 4 MG/2 ML VIAL IV PUSH (10:20)
--- NOTE | 2021-09-03 10:41 | SUR.PHASEII ---
multiple attempts not able to reach ride for boyfriend granddad called and will come now. patient reported nausea zofran given states feeling better
== END 2021-09-03 11:02 | disposition home or self-care (01) ==
PROVIDERS: PCP Nurse Practitioner Family; Visit Provider Obstetrics & Gynecology
PROC: (CPT 49320; principal; 2021-09-03 07:30)
DX: Z30.2 Encounter for sterilization (principal)
CPT/HCPCS: 58661; 88302; A9270; J0330; J1100; J1885; J2250; J2270; J2405; J2704; J2710; J7120

== ENCOUNTER 2022-01-23 12:00 | Outpatient (CLI) | payer OTHER, SELFPAY ==
--- NOTE | ~2022-01-23 | XR_ITS ---
XR hand LT min 3V DATE: 01/23/2022 12:21 INDICATION: Left hand pain TECHNIQUE: 3 views COMPARISON: None FINDINGS: No fracture or dislocation, periosteal reaction or bone destruction, erosive change or matthieu drocalcinosis. IMPRESSION: Negative Reviewed, dictated and finalized at location A. IMPRESSION: Negative
--- NOTE | ~2022-01-23 | XR_ITS ---
XR wrist LT min 3V DATE: 01/23/2022 12:28 INDICATION: Left wrist and hand pain TECHNIQUE: 4 views COMPARISON: None FINDINGS: No fracture or dislocation, periosteal reaction or bone destruction, joint space narrowing, erosive change or chondrocalcinosis. IMPRESSION: Negative Reviewed, dictated and finalized at location A. IMPRESSION: Negative
== END 2022-01-23 12:01 | disposition home or self-care (01) ==
PROVIDERS: PCP Nurse Practitioner Family; Visit Provider Nurse Practitioner Family
DX: M79.642 Pain in left hand (principal)
CPT/HCPCS: 73110; 73130

== ENCOUNTER 2022-02-28 10:17 | Emergency (ER) | payer OTHER, SELFPAY ==
[2022-02-28 10:18] VITALS: BP 109/53; PULSE 97; RESP 16; TEMP 36.8; O2SAT 100
--- NOTE | 2022-02-28 12:14 | ED.GENADULT ---
HPI - General Adult General Chief complaint: Unspecified <Rebeca Moreno PA-C - Last Filed: 02/28/22 19:41> Stated complaint: body aches <PRITESH Lawrence Last Filed: 02/28/22 19:41> Time Seen by Provider: 02/28/22 10:29 <Rebeca Mroeno PA-C - Last Filed: 02/28/22 19:41> Source: patient <PRITESH Lawrence Last Filed: 02/28/22 19:41> Mode of arrival: ambulatory <PRITESH Lawrence Last Filed: 02/28/22 19:41> Limitations: no limitations <PRITESH Lawrence Last Filed: 02/28/22 19:41> History of Present Illness HPI narrative: Patient is a 26-year-old female who presents the ED with report of N/V/D and myalgias. Patient reports she ate at a restaurant in [place], [place] and believes she had undercooked steak. She developed nausea, vomiting, diarrhea after eating at the restaurant that night. She believes she had food poisoning. Symptoms have since persisted. She is now also complaining of diffuse myalgias in her arms/legs. She has been taking Tylenol and ibuprofen at home without much relief. Last took these last night. No pain meds this morning. She last vomited this morning. Denies any specific abdominal pain. Denies any fever, chills, sweats, cough, congestion, rhinorrhea, HAMEED, rectal bleeding, hematemesis, CP, SOB, urinary symptoms. Patient has had 3 negative at home COVID tests. <Rebeca Moreno PA-C - Last Filed: 02/28/22 19:41> Related Data Allergies/adverse reactions: Allergies Allergy/AdvReac Type Severity Reaction Status Date / Time oxycodone [From Percocet] Allergy Rash Verified 02/28/22 11:08 <PRITESH Lawrence Last Filed: 02/28/22 19:41> Review of Systems Review of Systems: CONSTITUTIONAL: Denies fever, chills, or sweats. ENT: Denies rhinorrhea, congestion, sore throat. CARDIOVASCULAR: Denies chest pain. RESPIRATORY: Denies cough or dyspnea. GASTROINTESTINAL: Reports N/V/D. Denies abdominal pain, rectal bleeding, hematemesis. GENITOURINARY: Denies dysuria or hematuria. MUSCULOSKELETAL: Reports diffuse myalgias in arms/legs. NEUROLOGIC: Denies headache, numbness, tingling, or weakness. <Rebeca Moreno PA-C - Last Filed: 02/28/22 19:41> All systems reviewed & are unremarkable except as noted in HPI and below <Rebeca Moreno PA-C - Last Filed: 02/28/22 19:41> PMFSH Past Medical History Medical History: Medical History (Updated 03/01/22 @ 00:00 by Vishnu Barcenas) Arm fracture, left Colitis Herpes Miscarriage UTI (urinary tract infection) <Rebeca Moreno PA-C - Last Filed: 02/28/22 19:41> Surgical History Surgical History: Surgical History Hx of colonoscopy Hx of tonsillectomy <Rebeca Moreno PA-C - Last Filed: 02/28/22 19:41> Family History Family History: Family History Mother Breast cancer Father Diabetes mellitus <Rebeca Moreno PA-C - Last Filed: 02/28/22 19:41> Social History Social History: Social History Social History: she does not drink, smoke, or do drugs. 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 She would like her mom, Monica Steiner, as her decision maker if she cannot make her own decisions. She would like to be a full code. Smoking status: Never smoker Second hand tobacco smoke exposure: No Alcohol intake: current Substance use: never Substance use type: does not use Other substance usage details: pt denies Gender identity (if verbalized by the patient): Female Spiritual care concerns: No <Rebeca Moreno PA-C - Last Filed: 02/28/22 19:41> Exam Narrative: GENERAL: Well appearing, well-nourished, non-toxic, in no acute distress. HEAD: Normocephalic, atraumatic. THROAT: Pharynx clear, no exudate. MMs dry. NECK: Supple. No adenopathy, no masses. RESPIRATORY: Airway patent, respirations nonlabored. Clear to auscultation bi
[2022-02-28 12:31] LABS: Appearance Urine Slightly Cloudy (Clear); Bilirubin Urine Negative (Negative); Blood Urine 1+ (Negative); Color Urine Yellow (Yellow); Glucose Urine UA Negative (Negative); Ketones Urine Negative (Negative); Leukocyte Esterase Ur Trace LEU/UL (Negative); Nitrate Urine Negative (Negative); Protein Urine Negative (Negative); Urobilinogen Urine 0.2 mg/dL (<2.0)
[2022-02-28 12:43] LABS: Bacteria Urine Trace /hpf; Mucus Urine Rare /lpf; Squamous Epithelial Cell Urine Many /hpf (Few)
[2022-02-28 12:45] LABS: Add Urine Microscopic? YES
[2022-02-28] MEDS: KETOROLAC 30 MG/ML VIAL (*BKC) IV PUSH (12:50)
[2022-02-28] MEDS: SODIUM CHLORIDE 0.9% IV 1,000 ML 999 ML IV CONT (12:51)
[2022-02-28 12:53] LABS: Basophils Percent Auto 0.1 % (0.2-1.2); Eosinophils Absolute Auto 0.1 K/mm3 (0-0.3); Eosinophils Percent Auto 1.5 % (0-4.4); Hematocrit 36.7 % (37.0-47.0); Hemoglobin 11.6 g/dL (12.0-15.0); Immature Granulocyte Absolute 0.03 K/mm3 (0.00-0.031); Immature Granulocyte Percent A 0.3 % (0-0.5); Lymphocytes Absolute Auto 1.44 K/mm3 (0.9-3.2); Lymphocytes Percent Auto 16.4 % (18.3-44.2); Mean Corpuscular HGB Conc 31.6 g/dl (32-36); Mean Corpuscular Hemoglobin 24.4 pg (26-34); Mean Corpuscular Volume 77.3 fl (80-100); Mean Platelet Volume 8.8 fl (7.4-10.4); Monocytes Absolute Auto 0.5 K/mm3 (0.1-0.6); Monocytes Percent Auto 5.2 % (2.6-8.5); Neutrophils Absolute Auto 6.7 K/mm3 (1.3-6.7); Neutrophils Percent Auto 76.5 % (45.5-73.1); Platelet Count Result 387 k/mm3 (150-375); Red Blood Count 4.75 M/mm3 (4.2-5.4); Red Cell Distribution Width 15.1 % (11.5-14.5); White Blood Count 8.8 K/mm3 (4.5-10.0)
[2022-02-28 13:03] LABS: Alanine Aminotransferase 15 U/L (6-35); Albumin Level 4.5 g/dL (3.5-5.1); Alkaline Phosphatase 91 U/L (38-126); Anion Gap 7 mmol/L (8-16); Aspartate Amino Transferase 24 U/L (14-36); Bilirubin,Total 0.2 mg/dL (0.2-1.3); Blood Urea Nitrogen 6 mg/dL (7-17); Calcium 8.4 mg/dL (8.4-10.2); Carbon Dioxide 25 mmol/L (22-30); Chloride 104 mmol/L (98-107); Estimated CRCL calculation 97 ml/min; Estimated Glomerular Filt Rate > 60; Glucose 96 mg/dL (65-110); Lipase 52 U/L (23-300); Potassium 3.8 mmol/L (3.4-5.0); Sodium 136 mmol/L (137-145)
[2022-02-28] MEDS: LIDOCAINE HCL 2% VISC SOLN 15 ML UDC PO (13:29)
[2022-02-28 14:35] LABS: Creatine Kinase 150 U/L (30-135); Magnesium 1.9 mg/dL (1.6-2.3)
[2022-02-28 14:47] VITALS: BP 120/69; PULSE 91; RESP 16; O2SAT 97
== END 2022-02-28 15:02 | disposition home or self-care (01) ==
PROVIDERS: Physician Assistant; Emergency Provider Emergency Medicine; PCP Nurse Practitioner Family
DX: R11.2 Nausea with vomiting, unspecified (principal); M79.10 Myalgia, unspecified site; Z87.440 Personal history of urinary (tract) infections
CPT/HCPCS: 36415; 80053; 81001; 81025; 82550; 83690; 83735; 85025; 87086; 87088; 96361; 96374; 96375; 99284; J0131; J1885; J7030

== ENCOUNTER 2022-06-20 14:39 | Outpatient (CLI) | payer OTHER, SELFPAY ==
--- NOTE | ~2022-06-20 | US_ITS ---
US renal BI 06/20/2022 15:10 Procedure: Realtime transabdominal ultrasound of the kidneys and bladder. Indication: Low back pain. History of stones. Comparison: 05/03/2020 Findings: Renal echotexture is normal bilaterally without hydronephrosis, contour deforming mass or r enal calculus. The right kidney measures 9.5 cm and left kidney measures 10.8 cm. Bladder within nor mal limits. Impression: 1: Unremarkable renal ultrasound. No stones, masses or hydronephrosis. Reviewed, dictated and finalized at location A. Impression: 1: Unremarkable renal ultrasound. No stones, masses or hydronephrosis.
--- NOTE | ~2022-06-20 | US_ITS ---
EXAMINATION: US pelvic complete DATE: 06/20/2022 15:12 INDICATION: Low back pain Comparison:No prior studies for comparison. TECHNIQUE: Multiple transabdominal sonographic images of the pelvis performed. FINDINGS: Study is limited due to bowel gas. The uterus is incompletely visualized in the left ovary is not seen. The uterus measures 7.3 x 4.8 x 4.5 cm. The endometrial complex measures 5 mm. The right ovary measures 2.7 x 2.4 x 2.6 cm. No ovarian mass is seen. There is no free fluid in the pelvis. There are no abnormal masses seen on either side. IMPRESSION: 1. Unremarkable pelvic ultrasound. Limited examination due to bowel gas. Reviewed, dictated and finalized at location A.
== END 2022-06-20 14:40 | disposition home or self-care (01) ==
PROVIDERS: PCP Nurse Practitioner Family; Visit Provider Nurse Practitioner Obstetrics & Gynecology
DX: M54.50 Low back pain, unspecified (principal)
CPT/HCPCS: 76775; 76856

== ENCOUNTER 2022-07-15 13:40 | Outpatient (CLI) | payer OTHER, SELFPAY ==
--- NOTE | ~2022-07-15 | US_ITS ---
EXAMINATION: US breast BI limited HISTORY: Pain in the lateral aspect of both breasts, family history of breast cancer in her mother at age 40 TECHNIQUE: Limited bilateral breast ultrasound was performed. FINDINGS: No suspicious cystic or solid mass is identified in the area of the patient's pain in eithe r breast. Breast tissue is sonographically normal in these areas. IMPRESSION: 1. No specific sonographic correlate is identified for the patient's reported pain in either breast. Further evaluation at this time should be based on clinical assessment. Continued follow-up physical examination is recommended. 2. Patient reports family history of breast cancer in her mother at age 40. Would recommend screening mammography beginning at age 29 or 10 years prior to her mother at diagnosis. BI-RADS Category 1: Negative Reviewed, dictated and finalized at location A. NG TECHNICIAN IMPRESSION: 1. No specific sonographic correlate is identified for the patient's reported p ain in either breast. Further evaluation at this time should be based on clinic al assessment. Continued follow-up physical examination is recommended. 2. Patient reports family history of breast cancer in her mother at age 40. Wou ld recommend screening mammography beginning at age 29 or 10 years prior to her mother at diagnosis. BI-RADS Category 1: Negative
== END 2022-07-15 13:41 | disposition home or self-care (01) ==
LOC: ANHIMG 13:42
PROVIDERS: PCP Nurse Practitioner Family; Visit Provider Obstetrics & Gynecology Gynecology
DX: N64.4 Mastodynia (principal); Z80.3 Family history of malignant neoplasm of breast
CPT/HCPCS: 76642

== ENCOUNTER 2022-10-19 10:56 | Emergency (ER) | payer BC, MEDICAID, SELFPAY ==
[2022-10-19 11:04] VITALS: BP 139/83; PULSE 102; RESP 14; TEMP 36.6; O2SAT 100
--- NOTE | 2022-10-19 11:22 | ED.SKABFB ---
HPI - Skin/Abscess/Foreign Bdy General Chief complaint: Skin/Abscess/Foreign Body Stated complaint: abcess on right labia Time Seen by Provider: 10/19/22 11:07 History of Present Illness HPI narrative: Patient is a 27-year-old female here for evaluation of pain and swelling to her right labia. Patient states that she presented to her [facility] last week for her annual physical and was incidentally found to have a Bartholin cyst. The cyst was drained in the office and patient was sent home with Bactrim. States that she has been taking her Bactrim as prescribed but over the past days she has noted increased pain at the site. Denies any spontaneous drainage. She has not attempted any medicine for her pain. No fevers or chills, nausea or vomiting or systemic symptoms. Related Data Allergies Allergy/AdvReac Type Severity Reaction Status Date / Time oxycodone [From Percocet] Allergy Rash Verified 10/19/22 11:15 Review of Systems Review of Systems: Gen: Denies fevers or chills Eyes: Denies eye pain or visual change ENT: Denies congestion Respiratory: Denies shortness of breath or cough CV: Denies chest pain or palpitations GI: Denies abdominal pain nausea, emesis or diarrhea : Reports right labial pain Musculoskeletal: Denies back pain or muscle pain Neuro: Denies numbness, tingling, weakness or focal weakness Skin: Denies rash Except as documented, all other systems reviewed and negative [facility] Past Medical History Medical History (Updated 10/19/22 @ 12:18 by Kacie Parsons PA-C) Arm fracture, left Colitis Herpes Miscarriage UTI (urinary tract infection) Surgical History Surgical History Hx of colonoscopy Hx of tonsillectomy Family History Family History Mother Breast cancer Father Diabetes mellitus Social History Social History Social History: she does not drink, smoke, or do drugs. 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 She would like her mom, Monica Steiner, as her decision maker if she cannot make her own decisions. She would like to be a full code. Smoking status: Never smoker Second hand tobacco smoke exposure: No Alcohol intake: current Substance use: never Substance use type: does not use Other substance usage details: pt denies Living arrangements: with family Gender identity (if verbalized by the patient): Female Spiritual care concerns: No Exam Narrative: APPEARANCE: Well appearing, no pain in distress, well-nourished. Head: Normocephalic and atraumatic. EYES: PERRLA/EOMI, conjunctivae clear NOSE: No nasal drainage EARS: External ear normal in appearance THROAT: Oropharynx is clear. Mucous membranes are moist. NECK: Supple. No adenopathy, no masses. RESPIRATORY: Airway patent, respirations nonlabored. Clear to auscultation bilaterally, no rales, rhonchi, wheezing. : Patient has a open area to her right labia without active drainage and no surrounding fluctuance or induration. No spontaneous drainage with palpation. Nontender to palpation. CARDIOVASCULAR: Regular rate and rhythm without murmurs, rubs, or gallops. ABDOMINAL: Normoactive bowel sounds. Soft, nontender, nondistended. No rebound tenderness or guarding. MUSCULOSKELETAL: Extremities are warm and well-perfused. Moves all extremities well. No edema. NEURO: Normal speech. No focal neurologic deficits. SKIN: Skin is warm and dry. No rashes. PSYCHIATRIC: Normal affect/mood. Course Vital Signs Vital signs: Vital Signs Temperature 97.8 F 10/19/22 11:04 Pulse Rate 102 H 10/19/22 11:04 Respiratory Rate 14 10/19/22 11:04 Blood Pressure 139/83 10/19/22 11:04 Pulse Oximetry 100 10/19/22 11:04 Oxygen Delivery Room Air 10/19/22 11:04 Temperature 97.8 F 10/19/22 11:04 Pulse Rate 102 H 10/19/22 11:04 Respiratory Rate 14
[2022-10-19] MEDS: KETOROLAC 30 MG/ML VIAL (*BKC) IM (11:40)
== END 2022-10-19 12:25 | disposition home or self-care (01) ==
PROVIDERS: Emergency Provider Physician Assistant; PCP Nurse Practitioner Family
DX: N75.0 Cyst of Bartholin's gland (principal)
CPT/HCPCS: 96372; 99283; J1885

== ENCOUNTER 2023-09-29 08:47 | Outpatient (CLI) | payer BC, MEDICAID, SELFPAY ==
--- NOTE | ~2023-09-29 | CT_ITS ---
EXAMINATION: CT abdomen pelvis w con DATE: 09/29/2023 09:09 INDICATION: Right lower quadrant pain for a week TECHNIQUE: Computed tomography (CT) of the abdomen and pelvis was performed with 100 CC Omnipaque 350 intravenous contrast. Automated exposure control and iterative reconstruction technique were employe d. Exam dose: 790.54 mGy-cm total exam DLP. COMPARISON: None. FINDINGS: The lung bases are clear. Normal heart size. No pericardial or pleural effusion. The liver, spleen, pancreas, gallbladder, bile ducts and pancreatic duct, and adrenal glands and kidn eys appear normal. No urinary tract calculus or hydroureteronephrosis. Normal caliber of the abdominal aorta. No intraperitoneal or retroperitoneal or pelvic mass lesion or adenopathy or ascites. The uterus and adnexal areas and urinary bladder are unremarkable. Normal appendix. No bowel obstruction, bowel wall thickening, pneumatosis or intraperitoneal free air . Small fat-containing umbilical hernia. Included skeletal structures are unremarkable. IMPRESSION: Normal appendix Reviewed, dictated and finalized at Location A. Reviewed, dictated and finalized at location L. [employer] IMPRESSION: Normal appendix
== END 2023-09-29 08:48 | disposition home or self-care (01) ==
PROVIDERS: PCP Nurse Practitioner Obstetrics & Gynecology; Visit Provider Nurse Practitioner Obstetrics & Gynecology
DX: R10.31 Right lower quadrant pain (principal)
CPT/HCPCS: 74177; Q9967

== ENCOUNTER 2025-05-03 19:01 | Emergency (ER) | payer BC, SELFPAY ==
--- NOTE | 2025-05-03 19:13 | ED_ITS ---
HPI - Female Genitourinary General Chief complaint: GI Bleed Stated complaint: Blood In Stool/Urine Time Seen by Provider: 05/03/25 19:09 Source: patient Mode of arrival: ambulatory Limitations: no limitations History of Present Illness HPI Narrative: Patient is a 29-year-old female that presents with blood in stool that started 6 days ago. Patient states she noticed it in her underwear and it would turn the toilet water red. Patient has history of hemorrhoids and has used cream given by GI doctor but it is no longer working. Patient also has history of colitis has never had colonoscopy. Patient started menstrual cycle 4 days ago. Patient has had abdominal cramping but hard to differentiate whether it has no abdominal pain or menstrual cramps. Has not had any fevers, chills, nausea, vomiting. Patient does report diarrhea today. Denies any anal trauma or penetration. Has not had increased straining or constipation. Patient has had increased stress at home due to wedding planning and wetting being in 1 month. MD elicited complaint: dysuria Related Data Home Medications ?Medication ?Instructions ?Recorded ?Confirmed ?Last Taken ?Type No Home Medications 05/03/25 05/03/25 U nknown History Allergies Allergy/AdvReac Type Severity Reaction Status Date / Time oxycodone (From Percocet) Allergy Rash Verified 05/03/25 19:14 Review of Systems Review of Systems: All systems reviewed & are unremarkable except as noted in HPI and below Constitutional: Constitutional: Denies chills, Denies fever(s), Denies headache(s), Denies malaise and Denies weakness Eyes: Eyes: Denies change in vision, Denies eye discharge and Denies irritation ENT: Denies otalgia, Denies headache(s), Denies nasal congestion, Denies nasal discharge, Denies sinus pain and Denies sore throat Cardiovascular: Cardiovascular: Denies chest pain, Denies edema, Denies palpitations and Denies dyspnea Respiratory: Respiratory: Denies cough and Denies dyspnea Gastrointestinal: Gastrointestinal: Denies abdominal pain, Reports hematochezia, Denies diarrhea, Denies nausea and Denies vomiting Genitourinary: Genitourinary: Denies hematuria, Reports nocturia, Reports dysuria, Denies flank pain and Reports urinary urgency Musculoskeletal: Musculoskeletal: Denies back pain and Denies numbness Integumentary/Breasts: Skin/Breast: Denies pruritus and Denies rash Neurologic: Denies headache(s), Denies numbness and Denies weakness Psychiatric: Psychiatric: Reports no additional psychiatric complaints Endocrine: Endocrine: Denies palpitations PMFSH Past Medical History Medical History Arm fracture, left UTI (urinary tract infection) Herpes Miscarriage Colitis Surgical History Surgical History Hx of colonoscopy Hx of tonsillectomy Family History Family History Mother Breast cancer Father Diabetes mellitus Social History Social History Social History: she does not drink, smoke, or do drugs. 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 She would like her mom, Monica Steiner, as her decision maker if she cannot make her own decisions. She would like to be a full code. Smoking status: Never smoker Second hand tobacco smoke exposure: No Alcohol intake: current Substance use: never Substance use type: does not use Other substance usage details: pt denies Living arrangements: with family Gender identity (if verbalized by the patient): Female Spiritual care concerns: No Comments At time of signature, agree with nursing past medical, surgical, social and family history. There is no relevant family history pertinent to the presenting complaint. Exam Const: General: cooperative, healthy appearing, comfortable, no acute distress and well nourished Nutritional Appearance: well nourished Orientation/consciousness: patient oriented x3 HENMT: Head: normocephalic and atraumatic Ears: external ears normal Face/Nose/Sinus: Normal external nose present, Normal nares present and normal facial exam Face and sinus: normal facial exam Eyes: General: appearance normal, both eyes and all related structures Pupils: Equal, round and reactive pupils present EOM: EOMs intact bilaterally Neck: Neck: normal visual inspection, full ROM and supple Chest: Chest palpation & inspection: normal inspection of the chest Resp: Effort & Inspection: normal respiratory effort and able to speak in complete sentences Cardio: Rate: regular rate Rhythm: regular rhythm GI: Inspection: normal to inspection GI Palp: No abdominal tenderness and Yes Soft to palpation : General: Yes no CVA tenderness Back/Spine/Pelvis: Back: no CVA tenderness Skin: General skin exam: normal color and no rashes or lesions noted Neuro: General: patient oriented x3 and moves all extremities Cranial nerves: Yes Equal, round and reactive pupils present Extrem: General: normal to inspection and full ROM Psych: Appearance: grossly normal and well kempt Course Course Emergency Course: Patient is aware of diagnosis, understands and agrees to treatment plan. Anticipatory guidance given. Patient agrees to follow-up as directed and is aware of reasons to seek care at the emergency department. Portions of this record may have been created with voice recognition software Level of Care: Express Care Visit Vital Signs Vital signs: Vital Signs Temperature 36.7 C 05/03/25 19:16 Pulse Rate 72 05/03/25 19:16 Respiratory Rate 16 05/03/25 19:16 Blood Pressure 116/67 05/03/25 19:16 Pulse Oximetry 100 05/03/25 19:16 Oxygen Delivery Room Air 05/03/25 19:16 Temperature 36.7 C 05/03/25 19:16 Pulse Rate 72 05/03/25 19:16 Respiratory Rate 16 05/03/25 19:16 Blood Pressure 116/67 05/03/25 19:16 Pulse Oximetry 100 05/03/25 19:16 Oxygen Delivery Room Air 05/03/25 19:16 Reviewed MDM - Female Genitourinary MDM Narrative Medical decision making narrative: Discussed the importance of following up with GI doctor and/or PCP for colonoscopy. Discussed if symptoms are significantly worsening to go to the ER for labs and imaging Pt well hydrated appearing, in no respiratory distress, hemodynamically stable. Recommend supportive care. The patient is stable at time of discharge the clinical impression was discussed and the patient was given the opportunity to ask questions, which were addressed as completely as possible given the information available at present. Anticipatory guidance and return to care precautions were discussed and the importance of primary care follow-up was stressed and encouraged. The patient voiced understanding of the plan, i ndications to return, and the need for follow-up. Exam findings show no acute concerns or changes Patient is appropriate for outpatient treatment and follow-up. Differential Diagnosis Differential diagnosis: Likely urinary tract infection and other (Rectal bleeding, hemorrhoids, diverticulitis) Medical Records Attestation: I reviewed the patient's medical records. Lab Data Attestation: I reviewed the patient's lab results. Labs: Lab Results 05/03/25 Range/Units 19:22 POC Urine Color Yellow POC Urine Clarity Cloudy POC Urine pH 6.5 POC Ur Specif [place] 1.025 POC Urine Protein Negative (Negative) POC Ur Glucose (UA) Negative (Negative) POC Urine Ketones Negative (Negative) POC Urine Blood 2+ (Negative) POC Urine Nitrite Negative (Negative) POC Urine Bilirubin Negative (Negative) POC Urine Urobilinogen 0.2 POC U Leukocyte Esteras Negative (Negative) Discharge Plan Discharge Clinical Impression: Rectal bleed Patient Disposition: Home Condition: Stable Instructions: Rectal Bleeding (ED) Additional Instructions: 1) Please follow-up with your GI doctor as soon as possible. Call them 1st thing in the morning. If they cannot get she when quickly follow-up with your PCP to schedule outpatient colonoscopy. 2) If you have any worsening of symptoms or any other urgent concerns please go to the ER. 3) Please read and follow information included in discharge instructions. Patient Language: Divehi Prescriptions: No Action No Home Medications Stand Alone Forms: Work/School Release IP Time of Disposition: 19:46
[2025-05-03 19:16] VITALS: BP 116/67; PULSE 72; RESP 16; TEMP 36.7; O2SAT 100
[2025-05-03 19:25] LABS: EDUAAPPEAR Cloudy; EDUABILI Negative (Negative); EDUABLOOD 2+ (Negative); EDUACOLOR1 Yellow; EDUAGLUCOSE Negative (Negative); EDUAKETONE Negative (Negative); EDUALEUKO Negative (Negative); EDUANITRATE Negative (Negative); EDUAPH 6.5; EDUAPROTEIN Negative (Negative); EDUASPGRAVITY 1.025; EDUAUROBILI 0.2
== END 2025-05-03 19:50 | disposition home or self-care (01) ==
PROVIDERS: Emergency Provider Nurse Practitioner Family
DX: K62.5 Hemorrhage of anus and rectum (principal)
CPT/HCPCS: 81003; 99212; G0463